=== PATIENT | male | born 1935 | race Caucasian/White ===

== ENCOUNTER → 2017-03-30 | Outpatient (CLI) | payer MEDICARE ==
[~2017-03-30] MED LIST: ASPI81TA85 PO; DOCU100C PO; FISHCAP PO; GLYB5TAB5 PO; HCTZ/LOSARTAN PO; METF850T PO; METO50TA2 PO; MULTTAB4 PO; OXYB5SYP PO; OXYC-208 PO; SIMVPOW2 PO; TERA1CA PO; tylenol
--- NOTE | 2017-03-30 12:52 | REP ---
Clinical: Renal failure. Technique: Real time blair scale ultrasound examination using curved array transducer. Findings: The right kidney is echogenic, atrophic, and demonstrates multiple small cysts along with 3.5 x 2.4 x 2.2 cm complex upper pole cyst and no evidence for hydronephrosis. Right kidney measures 8.5 x 3.7 x 3.4 cm. The left kidney is normal in contour, size, and echogenicity with increased renal sinus fat and few cysts measuring up to 1.6 x 1.5 x 1.4 cm suggesting element of age-related degenerative change left kidney measures 13.5 x 5.8 x 6.7 cm without hydronephrosis. Bladder is under distended and there appears to be a 12 x 12 x 7 mm echogenic soft tissue focus in the dependent portion which is otherwise nonspecific and mass versus sludge cannot be excluded. Impression: 1. Atrophic appearance to the right kidney with evidence for bilateral age-related changes including scattered cysts. No evidence for hydronephrosis. 2. Small echogenic soft tissue focus in the dependent portion the bladder. Differential includes mass and sludge/debris. Signed by Dayday Urbina MD 03/30/2017 12:43 P
== END ==
LOC: M RAD 10:44
PROVIDERS: ATTEND Family Medicine
DX: N19 Unspecified kidney failure (principal)

== ENCOUNTER → 2017-04-12 | Outpatient (REF) | payer MEDICARE ==
[2017-04-12 13:58] LABS: ALT/SGPT 12 U/L (12-78); AST/SGOT 5 U/L (15-37)
== END ==
LOC: M LAB REF 13:11
PROVIDERS: ATTEND Internal Medicine Nephrology
DX: N17.9 Acute kidney failure, unspecified (principal); I12.9 Hypertensive chronic kidney disease with stage 1 through stage 4 chronic kidney disease, or unspecified chronic kidney disease; N18.4 Chronic kidney disease, stage 4 (severe)

== ENCOUNTER → 2017-04-21 | Outpatient (REF) | payer MEDICARE | LOC: M LAB REF 16:42 | PROVIDERS: ATTEND Internal Medicine Nephrology | DX: N17.9 Acute kidney failure, unspecified (principal); Z79.84 Long term (current) use of oral hypoglycemic drugs ==

== ENCOUNTER → 2017-05-05 | Outpatient (CLI) | payer MEDICARE ==
[2017-05-05 13:10] LABS: BASO % 0.6 % (0.0-1.0); EOS # 0.2 10^3/uL (0.0-0.50); EOS % 3.9 % (0.0-3.0); IMMATURE GRANULOCYTE % 0.4 % (0-0); LYMPH # 0.9 10^3/uL (1.5-4.5); LYMPH % 16.1 % (24.0-44.0); MEAN CORPUSCULAR HEMOGLOBIN 31.4 pg (27.0-33.0); MEAN CORPUSCULAR HGB CONC 32.1 g/dl (32.0-36.5); MEAN CORPUSCULAR VOLUME 97.7 fl (80.0-96.0); MONO # 0.9 10^3/uL (0.0-0.8); MONO % 16.1 % (0.0-5.0); NEUTROPHILS # 3.4 10^3/uL (1.8-7.7); NEUTROPHILS % 62.9 % (36.0-66.0); PLATELET COUNT, AUTOMATED 174 10^3/uL (150-450); WHITE BLOOD COUNT 5.3 10^3/uL (4.0-10.0)
[2017-05-05 14:57] LABS: ALBUMIN 3.7 GM/DL (3.2-5.2); CALCIUM LEVEL 9.4 MG/DL (8.8-10.2); CREATININE FOR GFR 4.31 MG/DL (0.70-1.30); GLOMERULAR FILTRATION RATE 14.1 (>35); PHOSPHORUS LEVEL 5.7 MG/DL (2.5-4.9)
== END ==
LOC: M SMT 09:10
PROVIDERS: ATTEND Internal Medicine Nephrology
DX: N17.9 Acute kidney failure, unspecified (principal); N18.4 Chronic kidney disease, stage 4 (severe); I12.9 Hypertensive chronic kidney disease with stage 1 through stage 4 chronic kidney disease, or unspecified chronic kidney disease

== ENCOUNTER → 2017-06-06 | Outpatient (REF) | payer MEDICARE | LOC: M SMT 13:11 | PROVIDERS: ATTEND Nurse Practitioner Family | DX: N32.9 Bladder disorder, unspecified (principal); Z79.899 Other long term (current) drug therapy ==

== ENCOUNTER → 2017-06-07 | Outpatient (CLI) | payer MEDICARE | LOC: M RAD 09:48 | PROVIDERS: ATTEND Nurse Practitioner Family | DX: N28.1 Cyst of kidney, acquired (principal) ==

== ENCOUNTER → 2017-06-27 | Outpatient (REF) | payer MEDICARE ==
[~2017-06-27] MED LIST changes: +ASPI1TAB PO; +FERR325T3 PO; +FINA5TAB2 PO; +GLIP2.5T6 PO; +HYDR12CA PO; +OCUVTAB PO; +TERA5CA PO
[2017-06-27 18:00] LABS: PERCENT SATURATION 23.7 % (19.7-50.0)
== END ==
LOC: M LAB REF 17:27
PROVIDERS: ATTEND Internal Medicine Nephrology
DX: D64.9 Anemia, unspecified (principal)

== ENCOUNTER → 2017-06-30 | Outpatient (CLI) | payer MEDICARE ==
--- NOTE | 2017-07-01 21:07 | ECGEPIP ---
Stationary ECG Study [facility] Test Date: 2017-06-30 Pat Name: MARIA ALEJANDRA FITZPATRICK Department: Room: - Gender: M Data Administrator: [facility] : 1935 Requested By: ALEJANDRA Ashley Order Number: [id number] Reading MD: Tolu Khan Measurements Intervals [place] Rate: 79 P: 45 AK: 240 QRS: 7 QRSD: 168 T: 14 QT: 425 QTc: 487 Interpretive Statements SINUS RHYTHM WITH FIRST DEGREE AV BLOCK WITH OCCASIONAL VENTRICULAR PREMATURE COMPLEXES RIGHT BUNDLE BRANCH BLOCK Decreased heart rate, first-degree AV block and PVCs new compared with 11/01/2012 at 1527. Electronically Signed On 07-01-2017 21:07:38 EST by Tolu Khan
== END ==
LOC: M EKG 10:29
PROVIDERS: ATTEND Urology
DX: Z01.818 Encounter for other preprocedural examination (principal); D49.4 Neoplasm of unspecified behavior of bladder; I44.0 Atrioventricular block, first degree

== ENCOUNTER → 2017-07-04 | Outpatient (REF) | payer MEDICARE | LOC: M SMT 14:18 | PROVIDERS: ATTEND Urology | DX: N39.0 Urinary tract infection, site not specified (principal) ==

== ENCOUNTER 2017-07-07 06:58 | Day surgery (SDC) | payer MEDICARE ==
[~2017-07-07] VITALS: Ht 177.8 cm; Wt 95.2 kg
[2017-07-07] MEDS ORDERED: ceFAZolin 2 GM/D5W 50 ML IV BAG (J0690 PER 500MG) As Ordered ONE (07:32)
[2017-07-07] MEDS ORDERED: CONRAY-60 60% 50ML VIAL (Q9961) As Ordered ONE (08:39)
[2017-07-07] MEDS ORDERED: ONDANSETRON 4MG/2ML VIAL (J2405) As Ordered ONE (08:46)
[2017-07-07] MEDS ORDERED: LIDOCAINE 2% INJ 100 MG/5 ML SDV (FOR ANES.) As Ordered ONE (08:46)
[2017-07-07] MEDS ORDERED: fentaNYL 100 MCG/2 ML INJECTION (J3010) As Ordered ONE (08:46)
[2017-07-07] MEDS ORDERED: METOCLOPRAMIDE INJ 10MG/2ML VIAL (J2765) As Ordered ONE (08:46)
[2017-07-07] MEDS ORDERED: PROPOFOL 200 MG/20 ML VIAL As Ordered ONE (08:46)
[2017-07-07] MEDS ORDERED: ROCURONIUM BROMIDE 50 MG/5 ML VIAL As Ordered ONE (09:13)
[2017-07-07] MEDS ORDERED: ETOMIDATE INJ 20MG/10ML VIAL As Ordered ONE (09:13)
[2017-07-07] MEDS ORDERED: SUGAMMADEX SODIUM 500 MG/5 ML VIAL (BRIDION) As Ordered ONE (09:37)
--- NOTE | 2017-07-07 10:02 | REP ---
Retrograde pyelogram: Four views. History: Stent placement. 7 seconds of fluoroscopy time is reported. Findings: A sequence of four last image hold fluoroscopic spot radiographs of the abdomen document ureteral cannulation and contrast injection and double pigtail ureteral stent placement. No laterality markers are seen. Signed by Timo Justice MD 07/07/2017 01:35 P
[2017-07-07] MEDS ORDERED: MORPHINE 10 MG/ML 1ML VIAL IV PRN (10:15)
[2017-07-07] MEDS ORDERED: ACETAMINOPHEN TAB 650MG DOSE (2X325MG) PO PRN (10:15)
[2017-07-07] MEDS ORDERED: fentaNYL 100 MCG/2 ML INJECTION (J3010) IV PRN (10:15)
[2017-07-07] MEDS ORDERED: ONDANSETRON 4MG/2ML VIAL (J2405) IV PRN (10:15)
[2017-07-07] MEDS ORDERED: LR 1,000 ML IV SCH (10:15)
[2017-07-07 13:15] VITALS: BP 128/79
[2017-07-07 13:45] VITALS: BP 154/74
[2017-07-07 14:15] VITALS: BP 136/82
[2017-07-07 15:15] VITALS: BP 124/74
[2017-07-07 16:15] VITALS: BP 142/72
[2017-07-07] MEDS: TERAZOSIN 5 MG CAP PO SCH (16:35)
[2017-07-07] MEDS: hydroCHLOROthiazide 12.5 MG CAPSULE PO SCH (16:35)
[2017-07-07] MEDS: FINASTERIDE 5 MG TAB PO SCH (16:35)
[2017-07-07] MEDS: METOPROLOL TART 25 MG TABLET PO SCH (16:35)
[2017-07-07] MEDS: FERROUS SULFATE 325MG TAB PO SCH (16:36)
[2017-07-07] MEDS: glipiZIDE *2.5MG* 1/2 TABLET PO SCH (16:36)
[2017-07-07] MEDS: ASPIRIN 81 MG ENTERIC TAB PO SCH (16:36)
[2017-07-07 22:00] VITALS: BP 97/53
[2017-07-08 08:47] VITALS: BP 126/79
[2017-07-08] MEDS: TERAZOSIN 5 MG CAP PO SCH (08:48)
[2017-07-08 08:49] VITALS: BP 126/79
[2017-07-08] MEDS: ASPIRIN 81 MG ENTERIC TAB PO SCH (08:49)
[2017-07-08] MEDS: glipiZIDE *2.5MG* 1/2 TABLET PO SCH ×2 (08:49→08:51)
[2017-07-08] MEDS: FERROUS SULFATE 325MG TAB PO SCH (08:49)
[2017-07-08] MEDS: hydroCHLOROthiazide 12.5 MG CAPSULE PO SCH (08:49)
[2017-07-08] MEDS: FINASTERIDE 5 MG TAB PO SCH (08:49)
[2017-07-08] MEDS: METOPROLOL TART 25 MG TABLET PO SCH (08:49)
[2017-07-08 10:00] VITALS: BP 95/66
--- NOTE | 2017-07-08 10:44 | IPNPDOC ---
Assessment/Plan Date Seen The patient was seen on 07/08/17. Problems (1) Primary bladder transitional cell carcinoma Status: Acute Response to Treatment: Stable Discussed With: Nurse, Patient Plan/VTE VTE Prophylaxis Ordered?: No Plan d/ c home with leg bag Anticipated Discharge: Home Subjective Review oF Systems Chief Complaint The patient is a 82-year-old male admitted with a reason for visit of Bladder Tumor. Events since Last Encounter Admitted overnight after TURBT and stent due to decreased PO2 saturation. Offers no complaints. No difficulties No SOB P02 96%. No CP. Feels well. Minimal discomfort General: Denies: ROS Unobtainable, Chills, Night Sweats, Fatigue, Malaise, Normal Appetite, Other Symptoms Constitutional: Denies: Fever, Chills, Sweats, Weakness, Malaise, Other Eyes: Denies: Pain, Vision change, Conjunctivae inflammation, Eyelid inflammation, Redness, Other ENT: Denies: Head Aches, Ear Pain, Dysphagia, Sinus Congestion, Post Nasal Drip , Sore Throat, Epistaxis, Other Symptoms Skin: Denies: Rash, Lesions, Jaundice, Bruising, Itching, Dry, Breakdown, Nail Changes, Other Pulmonary: Denies: Dyspnea, Cough, Pleuritic Chest Pain, Other Symptoms Cardiovascular: Denies Chest Pain, Denies Palpitations, Denies Orthopnea, Denies Paroxysmal Noc. Dyspnea, Denies Edema, Denies Lt Headedness, Denies Other Symptoms Gastrointestinal: Denies: Nausea, Vomiting, Abdominal Pain, Diarrhea, Constipation, Melena, Hematochezia, Other Symptoms Genitourinary: Reports: Other Symptoms (slight discomfort at tip of penis. No flank pain) Hematologic: Denies: Bruising, Bleeding Excessively, Petecchia, Purpura, Enlarged Lymph Nodes, Other Hematologic Endocrine: Denies: Polydipsia, Polyphagia, Polyuria, Heat Intolerance, Cold Intolerance, Other Endocrine Sx Neurological: Denies: Weakness, Numbness, Incoordination, Change in Speech, Confusion, Seizures, Other Symptoms Objective Physical Examination General Exam: Alert, No Acute Distress ABDOMEN EXAM: Normal bowel sounds, Soft, No: Tenderness, Hepatospenomegaly Male Exam: Normal Genital Exam (catheter in place; blood tinged; no clots; no paraphimosis; testes non tender) Neuro Exam: Normal Gait, Normal Speech, Cranial Nerves 3-12 NL, Reflexes 2+ Vital Signs/I&O Vital Signs Date Time Temp Pulse Resp B/P (MAP) Pulse Ox O2 Delivery O2 Flow Rate FiO2 07/08/17 09:00 Room Air 07/08/17 08:49 89 126/79 07/08/17 08:47 91 07/07/17 22:00 97.9 17 2.0 I&O- Last 24 Hours up to 6 AM 07/08/17 06:00 Intake Total 750 ml Output Total 925 ml Balance -175 ml MINDY APONTE MD Jul 08, 2017 10:44
--- NOTE | 2017-07-11 14:48 | RO ---
DATE OF PROCEDURE: 07/07/2017 PREPROCEDURE DIAGNOSIS: Bladder tumors. POSTPROCEDURE DIAGNOSIS: Bladder tumors. OPERATIVE PROCEDURE: Cystoscopy, transurethral resection of bladder tumors (between 2-5 cm), left retrograde pyelogram with intraoperative interpretation of images, left ureteral stent placement. SURGEON: Kee Sterling MD TRAVEL SERVICES PROFESSIONAL: None. ANESTHESIA: General. OPERATIVE INDICATIONS: This is an 82-year-old male who was found to have several bladder tumors overlying his left ureteral orifice. He was brought to the operating room today for treatment. DESCRIPTION OF PROCEDURE: The patient was brought to the operating room, and general anesthesia was induced. Prophylactic antibiotics were infused. He was then placed in dorsal lithotomy position, prepped and draped in usual sterile fashion. A rigid cystoscope was then inserted into the urethral meatus and advanced to the bladder. The bladder was then thoroughly examined. There were no abnormalities seen other than papillary bladder tumors overlying the left ureteral orifice. They were approximately about 3-4 cm in size. At this point, I utilized a resectoscope to resect all visible tumors overlying this area. I then cauterized the area of resection with the coagulation current to make sure there was good hemostasis. Since I did have to resect over the ureteral orifice, I advanced a wire to the left collecting system. I then advanced an open-ended ureteral catheter over the wire in the left collecting system. A retrograde pyelogram was performed. It was negative for extravasation or hydronephrosis. I then advanced a 6-Lao x 22-32 cm JJ ureteral stent up the left collecting system over the wire. The wire was then removed, and there were adequate curls of the stent in the left renal pelvis and the bladder. At this point, I then inserted an 18-Lao Pedro catheter into the bladder and the balloon filled with 10 mL of sterile water. Fluid drained clear at the end of the procedure. The catheter was then connected to gravity drainage, and this marked the conclusion of the procedure. The patient was then taken out of the dorsal lithotomy position, awakened from anesthesia and transported to the recovery room in stable condition. ESTIMATED BLOOD LOSS: Minimal. COMPLICATIONS: None. SPECIMENS: Bladder tumors. PLAN: The patient will followup in the clinic in approximately 1 week for catheter removal. We will discuss pathology results as well. The stent will be left in place for approximately 3-4 weeks. [facility] MED[facility] CENTERMontserrat
== END 2017-07-08 11:55 | disposition home or self-care (01) ==
LOC: M SDC 06:58 → M MSPAV 13:19 → M SDC 07-08 11:55
PROVIDERS: ATTEND Urology
DX: C67.9 Malignant neoplasm of bladder, unspecified (principal); E11.9 Type 2 diabetes mellitus without complications; I25.10 Atherosclerotic heart disease of native coronary artery without angina pectoris; I25.2 Old myocardial infarction; I13.0 Hypertensive heart and chronic kidney disease with heart failure and stage 1 through stage 4 chronic kidney disease, or unspecified chronic kidney disease; D64.9 Anemia, unspecified; R29.898 Other symptoms and signs involving the musculoskeletal system; F41.9 Anxiety disorder, unspecified; N18.3 Chronic kidney disease, stage 3 (moderate); N40.0 Benign prostatic hyperplasia without lower urinary tract symptoms; Z79.899 Other long term (current) drug therapy; Z79.82 Long term (current) use of aspirin; Z85.828 Personal history of other malignant neoplasm of skin; Z87.81 Personal history of (healed) traumatic fracture; Z87.891 Personal history of nicotine dependence; Z96.1 Presence of intraocular lens
CPT/HCPCS: 52235; 52332; 74420; 88307; J0690; J2405; J2765; J3010; Q9961

== ENCOUNTER → 2017-09-04 | Outpatient (REF) | payer MEDICARE | LOC: M LAB REF 17:20 | DX: N18.9 Chronic kidney disease, unspecified (principal); D63.1 Anemia in chronic kidney disease | CPT/HCPCS: 82270 ==

== ENCOUNTER → 2017-11-21 | Outpatient (REF) | payer MEDICARE | LOC: M SMT 17:27 | DX: C67.9 Malignant neoplasm of bladder, unspecified (principal) | CPT/HCPCS: 88108 ==

== ENCOUNTER → 2018-02-21 | Outpatient (REF) | payer MEDICARE | LOC: M SMT 17:05 | DX: C67.9 Malignant neoplasm of bladder, unspecified (principal) | CPT/HCPCS: 88108 ==

== ENCOUNTER → 2018-06-19 | Outpatient (REF) | payer MEDICARE | LOC: M SMT 17:29 | DX: C67.9 Malignant neoplasm of bladder, unspecified (principal) | CPT/HCPCS: 88108 ==

== ENCOUNTER → 2019-11-11 | Outpatient (CLI) | payer MEDICARE ==
[~2019-11-11] MED LIST changes: -ASPI1TAB PO; +ASPI81TA26 PO; -TERA1CA PO; +TERA1CAP46 PO; -TERA5CA PO; +TERA5CAP3 PO
--- NOTE | 2019-11-12 01:27 | REP ---
REASON FOR EXAM: Cough. COMPARISON EXAM: 08/15/2014, the latest prior. The lung yeung are hypoexpanded, status quo. The heart is not enlarged. Chronic bibasilar changes are noted, status quo. Note is again made of previous median sternotomy. No acute patchy parenchymal opacities or pleural effusions have developed. There is no significant change in appearance of the osseous structures. IMPRESSION: Stable appearing chronic changes without evidence of acute cardiopulmonary disease. Electronically Signed by Adin Angeles DO 11/12/2019 07:57 A
== END ==
LOC: M WUC 15:54
PROVIDERS: ATTEND Internal Medicine
DX: R05 Cough (principal)

== ENCOUNTER → 2019-11-21 | Outpatient (REF) | payer MEDICARE ==
[~2019-11-21] MED LIST changes: +FISH1000 PO; +METO1TAB32 PO; +PRAV80TA2 PO; +VITMTA PO
== END ==
LOC: M LAB REF 07:40
PROVIDERS: ATTEND Dermatology
DX: C44.320 Squamous cell carcinoma of skin of unspecified parts of face (principal); D04.30 Carcinoma in situ of skin of unspecified part of face; L57.0 Actinic keratosis

== ENCOUNTER 2019-12-12 14:57 | Inpatient (IN) | payer MEDICARE ==
[~2019-12-12] VITALS: Ht 177.8 cm; Wt 105.6 kg
[~2019-12-12 14:57] MED LIST changes: -FISH1000 PO; -METO1TAB32 PO; -PRAV80TA2 PO; -VITMTA PO
[2019-12-12] MEDS ORDERED: PRAV80TA2 PO (15:27)
[2019-12-12 15:30] LABS: BASO % 0.7 % (0.0-1.0); EOS # 0.1 10^3/uL (0.0-0.5); HEMATOCRIT 25.6 % (42.0-52.0); HEMOGLOBIN 7.8 g/dl (13.5-17.5); LYMPH # 0.9 10^3/uL (1.5-5.0); LYMPH % 14.2 % (24.0-44.0); MEAN CORPUSCULAR HEMOGLOBIN 32.2 pg (27.0-33.0); MEAN CORPUSCULAR HGB CONC 30.5 g/dl (32.0-36.5); MEAN CORPUSCULAR VOLUME 105.8 fl (80.0-96.0); MONO # 0.6 10^3/uL (0.0-0.8); MONO % 10.1 % (0.0-5.0); NEUTROPHILS # 4.3 10^3/uL (1.5-8.5); NEUTROPHILS % 69.3 % (36.0-66.0); PLATELET COUNT, AUTOMATED 116 10^3/uL (150-450); RED BLOOD COUNT 2.42 10^6/uL (4.30-6.10); WHITE BLOOD COUNT 6.1 10^3/uL (4.0-10.0)
[2019-12-12 15:43] LABS: PARTIAL THROMBOPLASTIN TIME 28.3 SECONDS (25.0-38.4)
[2019-12-12 15:51] LABS: ALBUMIN 3.3 GM/DL (3.2-5.2); ALT/SGPT 35 U/L (12-78); BILIRUBIN,DIRECT < 0.1 MG/DL (0.0-0.2); BILIRUBIN,TOTAL 0.2 MG/DL (0.2-1.0); BLOOD UREA NITROGEN 71 MG/DL (7-18); CALCIUM LEVEL 8.3 MG/DL (8.8-10.2); CARBON DIOXIDE LEVEL 29 MEQ/L (21-32); CHLORIDE LEVEL 108 MEQ/L (98-107); CREATININE FOR GFR 3.49 MG/DL (0.70-1.30); GLOMERULAR FILTRATION RATE 17.9 (>35); GLUCOSE, FASTING 194 MG/DL (70-100); LIPASE 120 U/L (73-393); POTASSIUM SERUM 4.5 MEQ/L (3.5-5.1); SODIUM LEVEL 142 MEQ/L (136-145); TOTAL PROTEIN 6.4 GM/DL (6.4-8.2)
[2019-12-12 16:30] LABS: IRON (FE) 78 UG/DL (65-175); PERCENT SATURATION 26.8 % (19.7-50.0); TOTAL IRON BINDING CAPACITY 291 UG/DL (250-450)
[2019-12-12 16:32] LABS: INR 1.11
--- NOTE | 2019-12-12 17:21 | REP ---
REASON: Dyspnea. COMPARISON: Multiple, the latest 11/11/2019. The lung yeung are hypoexpanded. The technique utilized in obtaining the radiograph has magnified the cardiac silhouette and accentuated the interstitial markings. The heart is enlarged, magnified by technique. Once again, air within the intestinal tract abuts the undersurface of both right and left hemidiaphragm, so called Chilaiditi's on the right and gastric air bubble on the left. There are no acute patchy parenchymal opacities or pleural effusions. There is no change in the osseous structures. Note is again made of previous median sternotomy. IMPRESSION: Once again, intestinal gas elevates each hemidiaphragm causing low lung volumes. There is no evidence of acute cardiopulmonary disease or significant change when reviewed and compared to multiple prior exams. Electronically Signed by Adin Angeles DO 12/13/2019 09:51 A
[2019-12-12] MEDS: NS 1,000 ML IV SCH ×2 (17:37→21:12)
[2019-12-12 17:47] VITALS: BP 175/81
[2019-12-12] MEDS ORDERED: METO1TAB32 PO (17:52)
[2019-12-12] MEDS ORDERED: FISH1000 PO (17:52)
[2019-12-12] MEDS ORDERED: VITMTA PO (17:52)
--- NOTE | 2019-12-12 17:52 | HPEPDOC ---
[facility] Medical History & Physical Date of Admission December 12, 2019 Date of Service: December 12, 2019 Primary Care Physician: A History and Physical CHIEF COMPLAINT: shortness of breath HISTORY OF PRESENT ILLNESS: 84 yo male presents for several weak history of worsening shortness of breath, and dyspnea on exertion. Also complains of chronic leg and shoulder pain. Does not recall any recent colonoscopies. States he has been taking ibuprofen 3x daily for last 2 weeks for pain control. Denies chest pain, abdominal pain, N/V/D, headaches, changes in vision. Denies black tarry stools, or BRBPR. Extensive PMHx as indicated. 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 REVIEW OF SYSTEMS: Negative except as per HPI HOME MEDICATIONS: Please see below. PHYSICAL EXAMINATION: VITAL SIGNS: See below General: NAD, lying comfortably in bed HEENT: NC/AT, EOMI Lungs: CTA B/L Heart: +S1S2, RRR Abd: soft, NT, +BS Ext: no edema LABORATORY DATA: See below. MICROBIOLOGY: Please see below. ASSESSMENT: 84 yo male for two week history of worsening SOB/SWEENEY, admits to NSAID use over the last two weeks, found to be anemic with heme positive stool. PMHx includes DMII, HTN, OAB, HLD, CKDIII, BPH, chronic anemia and bladder tumor. Does not recall any recent colonoscopies. 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 #BLADDER TUMOR - follow with dr mandujano #DVT prophylaxis - mechanical Vital Signs Vital Signs Date Time Temp Pulse Resp B/P (MAP) Pulse Ox O2 Delivery O2 Flow Rate FiO2 12/12/19 14:58 97.8 92 20 114/59 (77) 88 Room Air Laboratory Data Labs 24H Laboratory Tests 2 12/12/19 15:14: Immature Granulocyte % (Auto) 3.7H, Neutrophils (%) (Auto) 69.3H, Lymphocytes (%) (Auto) 14.2L, Monocytes (%) (Auto) 10.1H, Eosinophils (%) (Auto) 2.0, Basophils (%) (Auto) 0.7, Neutrophils # (Auto) 4.3, Lymphocytes # (Auto) 0.9L, Monocytes # (Auto) 0.6, Eosinophils # (Auto) 0.1, Basophils # (Auto) 0.0, Nucleated Red Blood Cells % (auto) 0.0, Prothrombin Time 14.0, Prothromb Time I nternational Ratio 1.11, Activated Partial Thromboplast Time 28.3, Anion Gap 5L, Glomerular Filtration Rate 17.9L, Calcium Level 8.3L, Iron Level 78, Total Iron Binding Capacity 291, Transferrin % Saturation 26.8, Total Bilirubin 0.2, Direct Bilirubin < 0.1, Aspartate Amino Transf (AST/SGOT) 24, Alanine Aminotransferase (ALT/SGPT) 35, Alkaline Phosphatase 77, Total Protein 6.4, Albumin 3.3, Albumi n/Globulin Ratio 1.1, Lipase 120 CBC/BMP Laboratory Tests 12/12/19 15:14 Allergies Coded Allergies: No Known Allergies (Verified , 05/08/03) A-FIB/CHADSVASC A-FIB History Current/History of A-Fib/PAF?: No MYLES MARISCAL MD December 12, 2019 17:52
[2019-12-12 18:02] VITALS: BP 174/81
[2019-12-12 19:02] VITALS: BP 186/81
[2019-12-12 19:45] VITALS: BP 196/83
[2019-12-12 20:40] VITALS: BP 145/72
[2019-12-12] MEDS: TERAZOSIN 5 MG CAP PO SCH (21:13)
--- NOTE | 2019-12-12 21:13 | ECGEPIP ---
[facility] - ED Test Date: 2019-12-12 Pat Name: MARIA ALEJANDRA FITZPATRICK Department: Room: - Gender: Male Spring Tester: LEE ANN : 1935 Requested By: CARLOS VALDES Order Number: [id number] Reading MD: Shaquille Watkins Measurements Intervals [place] Rate: 74 P: 41 CO: 244 QRS: 7 QRSD: 161 T: 3 QT: 423 QTc: 470 Interpretive Statements SINUS RHYTHM WITH FIRST DEGREE AV BLOCK RIGHT BUNDLE BRANCH BLOCK SIMILAR TO 06/30/17 Electronically Signed on 12-12-2019 21:13:51 EDT by Shaquille Watkins
[2019-12-12] MEDS: METOPROLOL SUCC *XL* 25MG TAB (TopROL *XL*) PO SCH (21:14)
[2019-12-12] MEDS: hydroCHLOROthiazide 12.5 MG CAPSULE PO SCH (21:14)
[2019-12-12] MEDS: ACETAMINOPHEN TAB 650MG DOSE (2X325MG) PO PRN (23:19)
[2019-12-13] VITALS: BP 132/74
[2019-12-13 04:00] VITALS: BP 125/60
[2019-12-13 05:02] LABS: HEMOGLOBIN 7.9 g/dl (13.5-17.5); MEAN CORPUSCULAR HEMOGLOBIN 31.2 pg (27.0-33.0); MEAN CORPUSCULAR HGB CONC 30.4 g/dl (32.0-36.5); MEAN CORPUSCULAR VOLUME 102.8 fl (80.0-96.0); RED BLOOD COUNT 2.53 10^6/uL (4.30-6.10); WHITE BLOOD COUNT 5.3 10^3/uL (4.0-10.0)
[2019-12-13] MEDS: NS 1,000 ML IV SCH ×2 (05:11→13:58)
[2019-12-13 05:32] LABS: PLATELET COUNT, AUTOMATED 97 10^3/uL (150-450)
[2019-12-13 05:33] LABS: BLOOD UREA NITROGEN 67 MG/DL (7-18); CARBON DIOXIDE LEVEL 28 MEQ/L (21-32); CHLORIDE LEVEL 112 MEQ/L (98-107); CREATININE FOR GFR 2.95 MG/DL (0.70-1.30); GLOMERULAR FILTRATION RATE 21.7 (>35); GLUCOSE, FASTING 114 MG/DL (70-100); POTASSIUM SERUM 4.8 MEQ/L (3.5-5.1); SODIUM LEVEL 142 MEQ/L (136-145)
[2019-12-13 07:54] VITALS: BP 142/62
[2019-12-13] MEDS: PANTOPRAZOLE 40MG VIAL (C9113 PER 1) IV SCH ×2 (08:30→21:27)
[2019-12-13] MEDS: FINASTERIDE 5 MG TAB PO SCH (08:31)
[2019-12-13] MEDS: PRAVASTATIN 20 MG TAB PO SCH (08:31)
[2019-12-13] MEDS: MULTIVITAMINS/MINERALS THERAP 1 TAB PO SCH (08:31)
[2019-12-13 08:42] LABS: LDH LACTATE DEHYDROGENASE 447 U/L (87-241)
[2019-12-13] MEDS ORDERED: FERROUS SULFATE 325MG TAB PO SCH (09:00)
--- NOTE | 2019-12-13 11:31 | IPNPDOC ---
Text Note Date of Service The patient was seen on 12/13/19. NOTE Subjective: Patient seen and examined at bedside. No acute overnight events reported. Patient has no new medical complaints. Objecitive: VITAL SIGNS: See below General: NAD, lying comfortably in bed HEENT: NC/AT, EOMI, hard of hearing Lungs: CTA B/L Heart: +S1S2, RRR Abd: soft, NT, +BS Ext: no edema ASSESSMENT/PLAN: 84 yo male for two week history of worsening SOB/SWEENEY, admits to NSAID use over the last two weeks, found to be anemic with heme positive stool. 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
[2019-12-13 11:47] LABS: VITAMIN B12 LEVEL 749 PG/ML (247-911)
[2019-12-13 11:48] LABS: FOLATE > 24.0 NG/ML (>5.4)
[2019-12-13 13:51] LABS: HEMATOCRIT 26.7 % (42.0-52.0); HEMOGLOBIN 8.1 g/dl (13.5-17.5)
[2019-12-13 16:00] VITALS: BP 142/68
[2019-12-13] MEDS ORDERED: MOM 30ML SUSPENSION UDC PO ONE (18:45)
[2019-12-13 19:04] LABS: HEMOGLOBIN 7.8 g/dl (13.5-17.5); MEAN CORPUSCULAR HEMOGLOBIN 31.2 pg (27.0-33.0)
[2019-12-13 19:07] LABS: PLATELET COUNT, AUTOMATED 94 10^3/uL (150-450)
[2019-12-13 20:00] VITALS: BP 137/61
[2019-12-13] MEDS: hydroCHLOROthiazide 12.5 MG CAPSULE PO SCH (21:27)
[2019-12-13] MEDS: TERAZOSIN 5 MG CAP PO SCH (21:27)
[2019-12-13] MEDS: METOPROLOL SUCC *XL* 25MG TAB (TopROL *XL*) PO SCH (21:27)
[2019-12-14] VITALS: BP 135/63
[2019-12-14 00:23] LABS: HEMATOCRIT 24.4 % (42.0-52.0); HEMOGLOBIN 7.5 g/dl (13.5-17.5); MEAN CORPUSCULAR HEMOGLOBIN 31.4 pg (27.0-33.0); MEAN CORPUSCULAR HGB CONC 30.7 g/dl (32.0-36.5); MEAN CORPUSCULAR VOLUME 102.1 fl (80.0-96.0); RED BLOOD COUNT 2.39 10^6/uL (4.30-6.10); WHITE BLOOD COUNT 4.9 10^3/uL (4.0-10.0)
[2019-12-14 00:38] LABS: PLATELET COUNT, AUTOMATED 87 10^3/uL (150-450)
[2019-12-14] MEDS: NS 1,000 ML IV SCH (03:36)
[2019-12-14 04:00] VITALS: BP 141/65
[2019-12-14 05:25] LABS: CALCIUM LEVEL 7.7 MG/DL (8.8-10.2); CREATININE FOR GFR 2.61 MG/DL (0.70-1.30); POTASSIUM SERUM 5.6 MEQ/L (3.5-5.1)
[2019-12-14 06:32] LABS: HEMOGLOBIN 7.6 g/dl (13.5-17.5); MEAN CORPUSCULAR HEMOGLOBIN 31.4 pg (27.0-33.0); MEAN CORPUSCULAR HGB CONC 30.4 g/dl (32.0-36.5); MEAN CORPUSCULAR VOLUME 103.3 fl (80.0-96.0); RED BLOOD COUNT 2.42 10^6/uL (4.30-6.10); WHITE BLOOD COUNT 4.5 10^3/uL (4.0-10.0)
[2019-12-14 06:38] LABS: PLATELET COUNT, AUTOMATED 89 10^3/uL (150-450)
[2019-12-14 07:12] VITALS: BP 150/68
[2019-12-14] MEDS: D5W/0.45% SODIUM CHLORIDE 1,000 ML IV SCH ×2 (07:38→20:14)
[2019-12-14 07:44] LABS: ALBUMIN 2.8 GM/DL (3.2-5.2)
[2019-12-14] MEDS ORDERED: POLYETHYLENE GLYCOL (MIRALAX) 238GM BOTTLE PO ONE ×2 (08:00→18:00)
[2019-12-14] MEDS: PANTOPRAZOLE 40MG VIAL (C9113 PER 1) IV SCH ×2 (08:45→20:12)
[2019-12-14] MEDS: PRAVASTATIN 20 MG TAB PO SCH (08:45)
[2019-12-14] MEDS: MULTIVITAMINS/MINERALS THERAP 1 TAB PO SCH (08:45)
[2019-12-14] MEDS: FINASTERIDE 5 MG TAB PO SCH (08:45)
--- NOTE | 2019-12-14 08:57 | IPNPDOC ---
Text Note Date of Service The patient was seen on 12/14/19. NOTE Subjective: Patient seen and examined at bedside. No acute overnight events reported. Just returning from PT - reported to be short of breath with exertion. Patient has no new medical complaints. Unaware of any previous issues with thrombocytopenia. Denies any B symptoms. Objecitive: VITAL SIGNS: See below General: NAD, lying comfortably in bed HEENT: NC/AT, EOMI, hard of hearing Lungs: CTA B/L Heart: +S1S2, RRR Abd: soft, NT, +BS Ext: no edema ASSESSMENT/PLAN: 84 yo male for two week history of worsening SOB/SWEENEY, admits to NSAID use over the last two weeks for right shoulder pain, found to be anemic with heme positive stool. PMHx includes #GI Bleed - possible upper GI bleed - protonix IV BID - clear liquids - serial H/H - states he has never had a colonoscopy - gi c/s pending - plan for EGD/colonoscopy tomorrow #anemia - acute blood loss anemia complicated with chronic iron deficiency on oral supplementation #thrombocytopenia - will check ultrasound for splenomegaly, cirrhosis and portal hypertension - workup in progress - continue to monitor - consider transfusion if anemia worsens - etiology unknown - no B symptoms #DIABETES MELLITUS II - insulin sliding scale #HTN - HCTZ and toprol xl as per home meds - with hold parameters #OAB #HLD # APRIL/CKD III - creatinine improving # BPH - continue proscar and hytrin # DIABETIC NEUROPATHY #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
[2019-12-14 12:00] VITALS: BP 152/72
[2019-12-14 13:24] LABS: D-DIMER QUANT 3109.07 ng/ml (<500)
[2019-12-14 16:00] VITALS: BP 153/70
[2019-12-14 20:00] VITALS: BP 163/88
[2019-12-14] MEDS: METOPROLOL SUCC *XL* 25MG TAB (TopROL *XL*) PO SCH (20:13)
[2019-12-14] MEDS: TERAZOSIN 5 MG CAP PO SCH (20:13)
[2019-12-14] MEDS: hydroCHLOROthiazide 12.5 MG CAPSULE PO SCH (20:13)
[2019-12-14 21:08] LABS: HEMATOCRIT 25.3 % (42.0-52.0); HEMOGLOBIN 7.8 g/dl (13.5-17.5)
[2019-12-15] VITALS: BP 159/72
[2019-12-15 04:00] VITALS: BP 161/70
[2019-12-15 05:44] LABS: HEMATOCRIT 23.9 % (42.0-52.0); HEMOGLOBIN 7.2 g/dl (13.5-17.5); MEAN CORPUSCULAR HEMOGLOBIN 30.8 pg (27.0-33.0); MEAN CORPUSCULAR HGB CONC 30.1 g/dl (32.0-36.5); MEAN CORPUSCULAR VOLUME 102.1 fl (80.0-96.0); RED BLOOD COUNT 2.34 10^6/uL (4.30-6.10); WHITE BLOOD COUNT 5.7 10^3/uL (4.0-10.0)
[2019-12-15 05:46] LABS: PLATELET COUNT, AUTOMATED 89 10^3/uL (150-450)
[2019-12-15 06:09] LABS: CALCIUM LEVEL 7.8 MG/DL (8.8-10.2); CREATININE FOR GFR 2.31 MG/DL (0.70-1.30); GLOMERULAR FILTRATION RATE 28.8 (>35); POTASSIUM SERUM 5.2 MEQ/L (3.5-5.1)
[2019-12-15 07:22] VITALS: BP 157/72
[2019-12-15] MEDS: MULTIVITAMINS/MINERALS THERAP 1 TAB PO SCH (08:02)
[2019-12-15] MEDS: PRAVASTATIN 20 MG TAB PO SCH (08:02)
[2019-12-15] MEDS: FINASTERIDE 5 MG TAB PO SCH (08:02)
[2019-12-15] MEDS: PANTOPRAZOLE 40MG VIAL (C9113 PER 1) IV SCH ×2 (08:02→21:26)
--- NOTE | 2019-12-15 08:05 | IPNPDOC ---
Text Note Date of Service The patient was seen on 12/15/19. NOTE Subjective: Patient seen and examined at bedside. No acute overnight events reported. Still reports SWEENEY. Patient has no new medical complaints. Unaware of any previous issues with thrombocytopenia. Denies any B symptoms. Objecitive: VITAL SIGNS: See below General: NAD, lying comfortably in bed HEENT: NC/AT, EOMI, hard of hearing Lungs: CTA B/L Heart: +S1S2, RRR Abd: soft, NT, +BS Ext: no edema ASSESSMENT/PLAN: 84 yo male for two week history of worsening SOB/SWEENEY, admits to NSAID use over the last two weeks for right shoulder pain, found to be anemic with heme positive stool. PMHx includes anemia, DM, HTN, OAB, HLD, CKD, BPH and bladder tumor. #GI Bleed - protonix IV BID - clear liquids - serial H/H - states he has never had a colonoscopy - gi c/s pending - plan for EGD/colonoscopy today #anemia - acute blood loss anemia complicated with chronic iron deficiency on oral supplementation #thrombocytopenia - will check ultrasound with dopplers for splenomegaly, cirrhosis and portal hypertension - workup in progress - continue to monitor - consider transfusion if anemia worsens - etiology unknown - no B symptoms #chronic respiratory failure - uses supplemental oxygen at baseline 2L at night, and during as needed #DIABETES MELLITUS II - insulin sliding scale #HTN - HCTZ and toprol xl as per home meds - with hold parameters #OAB #HLD # APRIL/CKD III - creatinine improving # BPH - continue proscar and hytrin # DIABETIC NEUROPATHY #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 MD December 15, 2019 08:05
[2019-12-15] MEDS: D5W/0.45% SODIUM CHLORIDE 1,000 ML IV SCH (08:42)
[2019-12-15] MEDS ORDERED: PHENYLephrine HCL 500 MCG/5 ML (100MCG/ML) SYRINGE (J2370) As Ordered ONE ×2 (10:23→10:41)
[2019-12-15] MEDS ORDERED: LIDOCAINE 2% 100MG/5ML SDV (FOR ANES.) As Ordered ONE (10:41)
[2019-12-15] MEDS ORDERED: fentaNYL 100 MCG/2 ML INJECTION (J3010) As Ordered ONE (10:41)
[2019-12-15] MEDS ORDERED: propofoL 200 MG/20 ML VIAL As Ordered ONE ×2 (10:41→11:18)
[2019-12-15] MEDS ORDERED: ePHEDrine SULFATE 25 MG/5 ML(5MG/ML) SYRINGE As Ordered ONE (10:41)
[2019-12-15] MEDS ORDERED: GLUCAGON INJ 1MG VIAL As Ordered ONE (10:46)
--- NOTE | 2019-12-15 11:54 | ROOR ---
Patient Name: Kvng Enrique Procedure Date: 12/15/2019 9:43 AM Date of : 1935 Age: 84 Room: Main OR Gender: Male Note Status: Finalized Procedure: Colonoscopy Indications: Rectal bleeding, Evaluation of unexplained GI bleeding presenting with fecal occult blood Providers: Tolu SMALLS MD Referring MD: 2. Inpatient 2. Inpatient Requesting Provider: Medicines: Monitored Anesthesia Care Complications: No immediate complications. Procedure: Pre-Anesthesia Assessment: - The heart rate, respiratory rate, oxygen saturations, blood pressure, adequacy of pulmonary ventilation, and response to care were monitored throughout the procedure. The Colonoscope was introduced through the anus and advanced to 5 cm into the ileum. The colonoscopy was performed with difficulty due to excessive bleeding. Successful completion of the procedure was aided by lavage. The patient tolerated the procedure well. The quality of the bowel preparation was inadequate to detect polyps <5 mm., However was sufficient to assess for source of bleeding. Findings: The perianal and digital rectal examinations were normal. An ulcerated non-obstructing medium-sized mass was found in the mid transverse colon. The mass measured four cm in length. Oozing was present. This was biopsied with a cold forceps for histology. Area was successfully injected with 5 mL Estrellita ink for tattooing. Multiple diverticula were found in the sigmoid colon. Internal hemorrhoids were found during retroflexion. The hemorrhoids were medium-sized. 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 Biopsied. Injected with Tattoo.. - Redundant colon with difficult landmarks. - Diverticulosis in the sigmoid colon. - Internal hemorrhoids. - Blood and clots throughout colon. Preparation of the colon was inadequate to assess for small polyps, adequate to assess for bleeding source. Recommendation: - I suspect active oozing/bleeding due to freshly ulcerated/avulsed tumor with colon preparation and thrombocytopenia. Observe closely, transfuse as needed. - Refer to a surgeon at appointment to be scheduled. - Await pathology results. - Return patient to [facility] for ongoing care. - Clear liquid diet. Tolu Smalls MD Tolu SMALLS MD 12/15/2019 11:53:56 AM Electronically signed by Tolu SMALLS MD Number of Addenda: 0 Note Initiated On: 12/15/2019 9:43 AM Estimated Blood Loss: Estimated blood loss: none.
--- NOTE | 2019-12-15 12:00 | ROOR ---
Patient Name: Kvng Enrique Procedure Date: 12/15/2019 9:46 AM Date of : 1935 Age: 84 Room: Main OR Gender: Male Note Status: Finalized Procedure: Upper GI endoscopy Indications: Heme positive stool Providers: Tolu SMALLS MD Referring MD: 2. Inpatient 2. Inpatient Requesting Provider: Medicines: Monitored Anesthesia Care Complications: No immediate complications. Procedure: Pre-Anesthesia Assessment: - The heart rate, respiratory rate, oxygen saturations, blood pressure, adequacy of pulmonary ventilation, and response to care were monitored throughout the procedure. The Endoscope was introduced through the mouth, and advanced to the third part of duodenum. The upper GI endoscopy was accomplished without difficulty. The patient tolerated the procedure well. Findings: The esophagus was normal. The stomach was normal. The examined duodenum was normal. Impression: - Normal esophagus. - Normal stomach. - Normal examined duodenum. - No specimens collected. Recommendation: - Perform a colonoscopy today. Tolu Smalls MD Tolu SMALLS MD 12/15/2019 12:00:08 PM Electronically signed by Tolu SMALLS MD Number of Addenda: 0 Note Initiated On: 12/15/2019 9:46 AM Estimated Blood Loss: Estimated blood loss: none.
[2019-12-15 12:20] VITALS: BP 147/63
[2019-12-15] MEDS ORDERED: SLF 3 ML SYR IV PRN (12:30)
[2019-12-15] MEDS: SLF 3 ML SYR IV SCH ×2 (13:18→21:26)
[2019-12-15 16:00] VITALS: BP 129/59
--- NOTE | 2019-12-15 17:28 | REPVR ---
PROCEDURE INFORMATION: Exam: US Duplex Lower Extremity Veins, Bilateral Exam date and time: 12/15/2019 5:17 PM Age: 84 years old Clinical indication: Edema, localized; Lower extremity, bilateral; Additional info: Eval dvt TECHNIQUE: Imaging protocol: Real-time duplex ultrasound of the extremities with 2-D blair scale, color Doppler flow and spectral waveform analysis with image documentation. Complete exam focused on the bilateral lower extremity veins. COMPARISON: No relevant prior studies available. FINDINGS: Right deep veins: Unremarkable. The common femoral, femoral, proximal profunda femoral and popliteal veins are patent without thrombus. Normal Doppler waveforms. Normal compressibility and/or augmentation response. 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 Left deep veins: Unremarkable. The common femoral, femoral, proximal profunda femoral and popliteal veins are patent without thrombus. Normal Doppler waveforms. Normal compressibility and/or augmentation response. Left superficial veins: Saphenofemoral junction is patent without thrombus. Soft tissues: Unremarkable. IMPRESSION: No evidence of deep vein thrombosis. Electronically signed by: Francie Miller On 12/15/2019 17:28:00 PM
[2019-12-15 18:52] LABS: HEMATOCRIT 31.5 % (42.0-52.0); MEAN CORPUSCULAR HEMOGLOBIN 30.7 pg (27.0-33.0); MEAN CORPUSCULAR HGB CONC 31.7 g/dl (32.0-36.5); MEAN CORPUSCULAR VOLUME 96.6 fl (80.0-96.0); RED BLOOD COUNT 3.26 10^6/uL (4.30-6.10); WHITE BLOOD COUNT 7.5 10^3/uL (4.0-10.0)
[2019-12-15 18:54] LABS: PLATELET COUNT, AUTOMATED 85 10^3/uL (150-450)
[2019-12-15 20:00] VITALS: BP 153/73
--- NOTE | 2019-12-15 21:20 | REPVR ---
PROCEDURE INFORMATION: Exam: CT Abdomen And Pelvis Without Contrast Exam date and time: 12/15/2019 8:33 PM Age: 84 years old Clinical indication: Condition or disease; Intestinal condition; Mass/lesion; Additional info: Colon mass TECHNIQUE: Imaging protocol: Computed tomography of the abdomen and pelvis without contrast. Radiation optimization: All CT scans at this facility use at least one of these dose optimization techniques: automated exposure control; mA and/or kV adjustment per patient size (includes targeted exams where dose is matched to clinical indication); or iterative reconstruction. COMPARISON: CT ABD PELVIS W/O CONTRAST 06/07/2017 10:03 AM FINDINGS: Lungs: Motion artifact degrades image quality. Coarse linear opacities in the left lower lobe suggest discoid atelectasis or scar. Very small bilateral pleural effusions. Liver: Normal. No mass. Gallbladder and bile ducts: Gallstones present within the gallbladder. Pancreas: Calcification noted in the pancreatic head. Spleen: Normal. No splenomegaly. Adrenals: Normal. No mass. Kidneys and ureters: There are numerous rounded lesions present within both kidneys of varying density (some high and some low). A focal 4.4 cm rounded masslike appearing area present in the mid right kidney probably not significantly changed from 2017. No hydronephrosis in either kidney. Bilateral renal cortical atrophy. Stomach and bowel: Colonic interposition between the liver and anterior abdominal wall. Appendix: No evidence of appendicitis. Intraperitoneal space: Small amount of ascites noted in the pelvis. The colon is moderately distended with air perisplenic ascites. Vasculature: Unremarkable. No abdominal aortic aneurysm. Lymph nodes: Unremarkable. No enlarged lymph nodes. Bladder: Unremarkable as visualized. Reproductive: Unremarkable as visualized. Bones/joints: There has been a median sternotomy. There are several healed rib fractures in the right hemithorax. Vertebral compression fracture at L1 with 60% loss of height of the vertebral body unchanged from previous. 50% loss of height of the T8 vertebral body. Soft tissues: Trace amount of small left inguinal hernia containing fat with no signs of strangulation. Mild anasarca. IMPRESSION: 1. Bilateral renal cortical atrophy with bilateral renal masses. A focal 4 cm rounded area in the mid right kidney appears mass like but is probably not significantly changed from previous. MRI might be helpful for further characterization of the renal masses if it is clinically relevant. 2. Cholelithiasis. 3. Small amount of ascites in the pelvis. 4. Very small bilateral pleural effusions Electronically signed by: Francie Miller On 12/15/2019 21:20:39 PM
[2019-12-15] MEDS: hydroCHLOROthiazide 12.5 MG CAPSULE PO SCH (21:25)
[2019-12-15] MEDS: TERAZOSIN 5 MG CAP PO SCH (21:25)
[2019-12-15] MEDS: METOPROLOL SUCC *XL* 25MG TAB (TopROL *XL*) PO SCH (21:26)
[2019-12-16] VITALS: BP 141/68
[2019-12-16 04:00] VITALS: BP 142/69
[2019-12-16 04:29] LABS: HEMATOCRIT 30.3 % (42.0-52.0); HEMOGLOBIN 9.4 g/dl (13.5-17.5); MEAN CORPUSCULAR HEMOGLOBIN 30.1 pg (27.0-33.0); MEAN CORPUSCULAR VOLUME 97.1 fl (80.0-96.0); PLATELET COUNT, AUTOMATED 86 10^3/uL (150-450); RED BLOOD COUNT 3.12 10^6/uL (4.30-6.10); WHITE BLOOD COUNT 6.1 10^3/uL (4.0-10.0)
[2019-12-16 04:57] LABS: CALCIUM LEVEL 8.2 MG/DL (8.8-10.2); CREATININE FOR GFR 2.16 MG/DL (0.70-1.30); GLOMERULAR FILTRATION RATE 31.1 (>35)
[2019-12-16] MEDS: SLF 3 ML SYR IV SCH ×2 (05:59→14:40)
[2019-12-16 08:00] VITALS: BP 152/72
[2019-12-16] MEDS: FINASTERIDE 5 MG TAB PO SCH (09:26)
[2019-12-16] MEDS: MULTIVITAMINS/MINERALS THERAP 1 TAB PO SCH (09:26)
[2019-12-16] MEDS: PANTOPRAZOLE 40MG VIAL (C9113 PER 1) IV SCH (09:26)
[2019-12-16] MEDS: PRAVASTATIN 20 MG TAB PO SCH (09:26)
--- NOTE | 2019-12-16 09:41 | IPNPDOC ---
Text Note Date of Service The patient was seen on 12/16/19. NOTE Subjective: Patient seen and examined at bedside. No acute overnight events reported. Patient has no new medical complaints. Objecitive: VITAL SIGNS: See below General: NAD, lying comfortably in bed HEENT: NC/AT, EOMI, hard of hearing Lungs: CTA B/L Heart: +S1S2, RRR Abd: soft, NT, +BS Ext: no edema ASSESSMENT/PLAN: 84 yo male for two week history of worsening SOB/SWE[place], found to be anemic with heme positive stool. PMHx includes anemia, DM, HTN, OAB, HLD, CKD, BPH and bladder tumor. #GI Bleed - s/p colonoscopy - shows 4 cm ulcerated mass at mid-transverse colon - actively bleeding at beginning of procedure - resolved towards end of procedure - diverticulosis on colonoscopy - NPO - serial H/H - gi c/s appreciated - plan for possible surgery today #anemia - acute blood loss anemia complicated with chronic iron deficiency on oral supplementation #thrombocytopenia - liver US/dopplers completed today - report pending - continue to monitor - consider transfusion if anemia worsens #chronic respiratory failure - uses supplemental oxygen at baseline 2L at night, and during as needed #DIABETES MELLITUS II - insulin sliding scale #HTN - HCTZ and toprol xl as per home meds - with hold parameters #OAB #HLD # APRIL/CKD III - creatinine improving # BPH - continue proscar and hytrin # DIABETIC NEUROPATHY #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 #BLADDER TUMOR - follow with dr mandujano DVT prophylaxis - mechanical Dispo: NPO today for possible OR; discussed code status at length with patient, however not clear if he fully understands; discussed with as well, she is DNR/DNI and feels he would want the same VS,Fishbone, I+O VS, Fishbone, I+O Laboratory Tests 12/15/19 18:47 12/16/19 04:02 Vital Signs Date Time Temp Pulse Resp B/P (MAP) Pulse Ox O2 Delivery O2 Flow Rate FiO2 12/16/19 08:00 98.5 75 16 152/72 (98) 97 Nasal Cannula 2.0 I&O- Last 24 Hours up to 6 AM 12/16/19 06:00 Intake Total 1510 ml Output Total 25 ml Balance 1485 ml MYLES MARISCAL MD Dec 16, 2019 09:41
--- NOTE | 2019-12-16 10:18 | REP ---
ULTRASOUND ABDOMEN WITH DUPLEX DOPPLER ULTRASOUND PORTAL VASCULATURE: Real-time sonographic evaluation of the abdomen performed. The gallbladder is filled with sludge. There is a calculus in the neck of the gallbladder. Common bile duct could not be visualized. Liver demonstrate no mass. Pancreas could not be visualized due to overlying bowel gas. Spleen is not enlarged measuring 12.1 cm in length. Right kidney measures 10.2 x 5.8 x 5.6 cm and left kidney 14.4 x 5.8 x 6.2 cm. There are multiple hypoechoic and cystic nodules bilaterally in the kidneys. There is no definite solid mass. Largest cyst in the right kidney is 4 cm in diameter. Largest cyst in the left kidney is 2 cm in diameter. Abdominal aorta could not be visualized. There is trace free fluid adjacent to the spleen. The study is limited due to bowel gas and body habitus. Real-time sonographic evaluation and duplex Doppler interrogation of the portal vasculature performed. The main portal vein is patent with mildly pulsatile waveform. Right and left portal veins could not be visualized. Hepatic veins are patent with loss of cardiac phasicity suggesting cirrhosis. Peak systolic velocity in the main hepatic artery is 68 cm/s. Flow is seen in the splenic vein near the splenic hilum. It could not be seen more centrally. Superior mesenteric vein could not be visualized. Air-filled bowel is seen anterior to the liver. IMPRESSION: Gallbladder is filled with sludge, with a stone in the neck of the gallbladder. Common bile duct could not be visualized. No liver mass is seen. There are multiple complex cysts of both kidneys without hydronephrosis. Trace free fluid is adjacent to the spleen. There is normal direction of flow in the main portal vein with patent main hepatic artery and hepatic veins. There are mildly pulsatile waveforms in the main portal vein with loss of cardiac phasicity in the hepatic veins suggesting cirrhosis. Electronically Signed by Shawn Cronin MD 12/16/2019 01:15 P
--- NOTE | 2019-12-16 11:21 | IPNPDOC ---
Text Note Date of Service The patient was seen on 12/16/19. NOTE No acute events overnight. He denies nausea, emesis, fevers, or pain. VSSAF NAD abd - soft, NT, ND labs - below A) 84y/o male with acute blood loss anemia secondary to colon mass, thrombocytopenia, and possible cirrhosis P) npo check platelet function tests monitor labs plan for OR this afternoon for colon resection. Iftikhar Nava DO VS,Jenny, I+O VS, Laciee, I+O Laboratory Tests 12/15/19 18:47 12/16/19 04:02 Vital Signs Date Time Temp Pulse Resp B/P (MAP) Pulse Ox O2 Delivery O2 Flow Rate FiO2 12/16/19 08:00 98.5 75 16 152/72 (98) 97 Nasal Cannula 2.0 I&O- Last 24 Hours up to 6 AM 12/16/19 05:59 Intake Total 2410 ml Output Total 25 ml Balance 2385 ml MARTHA NAVA DO Dec 16, 2019 11:21
[2019-12-16 11:58] LABS: HEMATOCRIT 31.4 % (42.0-52.0); HEMOGLOBIN 9.8 g/dl (13.5-17.5); MEAN CORPUSCULAR HEMOGLOBIN 30.3 pg (27.0-33.0); MEAN CORPUSCULAR HGB CONC 31.2 g/dl (32.0-36.5); MEAN CORPUSCULAR VOLUME 97.2 fl (80.0-96.0); RED BLOOD COUNT 3.23 10^6/uL (4.30-6.10); WHITE BLOOD COUNT 5.9 10^3/uL (4.0-10.0)
[2019-12-16 12:00] VITALS: BP 144/67
[2019-12-16 12:01] LABS: PLATELET COUNT, AUTOMATED 86 10^3/uL (150-450)
[2019-12-16 12:55] LABS: COLLAGEN EPINEPHRINE 143 SECONDS (74-162)
--- NOTE | 2019-12-16 14:05 | CR ---
DATE OF CONSULTATION: 12/15/2019 REASON FOR CONSULTATION: Colon mass. HISTORY OF PRESENT ILLNESS: The patient is an 84-year-old male. He presented to the hospital with history of weakness and shortness of breath. He also had leg and shoulder pain. Apparently, he had been taking ibuprofen three times a day for last 2 weeks for his pain control. He was diagnosed with anemia on admission. GI was consulted with the theory that he likely had an upper GI bleed. Upper endoscopy was negative. Therefore, they proceeded to do a lower colonoscopy and incidentally found a transverse colon ulcerated mass that was bleeding actively on exam. Biopsies were taken and the lesion was tattooed. He was sent back to the floor and I was called to evaluate for this mass. The patient denies any abdominal pains. No prior colonoscopies to this. No nausea or vomiting. No history of colon problems in the family either. He also denies any night sweats or loss of weight. PAST MEDICAL HISTORY: Diabetes, hypertension, obstructive sleep apnea, hyperlipidemia, chronic kidney disease, benign prostatic hypertrophy (BPH), diabetic neuropathy, anemia, bladder tumor. PAST SURGICAL HISTORY: Knee surgery. ALLERGIES: None. HOME MEDICATIONS: Please see med record. REVIEW OF SYSTEMS: Pertinent positives and negatives as stated in history of present illness (HPI). PHYSICAL EXAMINATION: General: Alert and oriented times three, in no acute distress. Vitals: Temperature 97.7, pulse 83, respirations 20, blood pressure 129/59, pulse oximetry 92% on 2 liters nasal cannula. HEENT: Pupils equal round and react to light and accommodation. Heart: S1, S2. Regular rate and rhythm. Lungs: Clear to auscultation bilaterally. Abdomen: Soft, nontender, nondistended. Extremities: No clubbing, cyanosis or edema. LABORATORY DATA: White count 7.5, hemoglobin 10, platelets 85, potassium 5.2, creatinine 2.31, calcium 7.8. IMAGING: All he has had so far is a chest x-ray and a vascular ultrasound which was negative for DVT. Chest x-ray showed elevated hemidiaphragm causing low lung volumes, no evidence of acute cardiopulmonary disease. ASSESSMENT/PLAN: The patient is an 84-year-old male with GI bleed secondary to a transverse colon mass that is causing acute blood loss anemia. Dr. Smalls scoped him this afternoon and found the mass. It did appear to be ulcerated and was actively bleeding with large amounts of blood clots in the colon. I was then consulted by medicine. Recommendation at this time is to get a CT of abdomen and pelvis to evaluate the mass as well as for any signs of distant disease. Also will check a CEA level. I have also put him on the OR schedule for tomorrow afternoon for a transverse colon resection. The plan is to try and keep his hemoglobin up between now and then. He has already received 3 units of blood so far. Continue to monitor those values in the morning to see if he needs to get any more. Also may consider giving him some platelets prior to surgery to help with coagulation. I have explained all the risks and benefits of surgery with him as well as his . He understands and wants us to proceed with whatever we feel is necessary. Will reevaluate his labs again the morning and make sure his potassium is stable because he does have some hyperkalemia still. Will make sure that his anemia and thrombocytopenia are controlled prior to considering surgery.
[2019-12-16 16:00] VITALS: BP 166/80
[2019-12-16 18:08] LABS: HEMATOCRIT 32.1 % (42.0-52.0); HEMOGLOBIN 10.1 g/dl (13.5-17.5); MEAN CORPUSCULAR HEMOGLOBIN 30.3 pg (27.0-33.0); MEAN CORPUSCULAR HGB CONC 31.5 g/dl (32.0-36.5); MEAN CORPUSCULAR VOLUME 96.4 fl (80.0-96.0); RED BLOOD COUNT 3.33 10^6/uL (4.30-6.10); WHITE BLOOD COUNT 5.8 10^3/uL (4.0-10.0)
[2019-12-16 18:09] LABS: PLATELET COUNT, AUTOMATED 85 10^3/uL (150-450)
[2019-12-16] MEDS ORDERED: fentaNYL 250 MCG/5 ML INJECTION (J3010) As Ordered ONE (19:44)
[2019-12-16] MEDS ORDERED: ONDANSETRON 4MG/2ML VIAL As Ordered ONE (19:44)
[2019-12-16] MEDS ORDERED: propofoL 200 MG/20 ML VIAL As Ordered ONE (19:44)
[2019-12-16] MEDS ORDERED: LIDOCAINE 2% 100MG/5ML SDV (FOR ANES.) As Ordered ONE (19:44)
[2019-12-16] MEDS ORDERED: dexameTHASONE 4 MG/ML 1ML VIAL (J1100 PER 1MG) As Ordered ONE (19:44)
[2019-12-16] MEDS ORDERED: MIDAZOLAM INJ 2MG/2ML VIAL (J2250 PER 1MG) As Ordered ONE (19:44)
[2019-12-16] MEDS ORDERED: ROCURONIUM BROMIDE 50 MG/5 ML VIAL As Ordered ONE ×2 (19:44→21:05)
[2019-12-16] MEDS ORDERED: BUPIVACAINE/EPIN 0.25% 30 ML VIAL As Ordered ONE (19:49)
[2019-12-16] MEDS ORDERED: ERTAPENEM 1GM VIAL(INVanz) (J1335 PER 500MG) As Ordered ONE (20:48)
[2019-12-16] MEDS: hydroCHLOROthiazide 12.5 MG CAPSULE PO SCH (21:00)
[2019-12-16] MEDS ORDERED: PHENYLephrine HCL 500 MCG/5 ML (100MCG/ML) SYRINGE (J2370) As Ordered ONE (21:01)
[2019-12-16] MEDS ORDERED: VASOPRESSIN INJ 20 UNITS/ML VIAL As Ordered ONE (21:16)
[2019-12-16] MEDS ORDERED: ACETAMINOPHEN 1000MG 100ML IV BTL (OFIRMEV) (J0131 PER 10MG) As Ordered ONE (21:33)
[2019-12-16] MEDS ORDERED: SUGAMMADEX SODIUM 500 MG/5 ML VIAL (BRIDION) As Ordered ONE (21:35)
[2019-12-16] MEDS ORDERED: HYDROmorphone HCL 2 MG/ML 1ML VIAL (J1170) As Ordered ONE (22:11)
[2019-12-16] MEDS ORDERED: NORCO, ANEXSIA 5/325MG TABLET (HYDROcodone/ACETAMINOPHEN) PO PRN (23:00)
[2019-12-16] MEDS ORDERED: MORPHINE 2 MG/ML 1ML VIAL (J2270) IV PRN (23:00)
[2019-12-16] MEDS ORDERED: KETOROLAC 30 MG/ML 1ML VIAL IV PRN (23:00)
[2019-12-16] MEDS ORDERED: ONDANSETRON 4MG/2ML VIAL IV PRN (23:00)
[2019-12-16] MEDS ORDERED: NS 1,000 ML IV SCH (23:00)
[2019-12-16] MEDS ORDERED: fentaNYL 100 MCG/2 ML INJECTION (J3010) IV PRN (23:30)
[2019-12-16] MEDS ORDERED: LR 1,000 ML IV SCH (23:30)
[2019-12-17] VITALS (11 sets, daily range): BP systolic 108–129; BP diastolic 54–80
[2019-12-17] MEDS ORDERED: PIPERACILLIN/TAZOBACTAM SOD 3.375 GM in D5W MINI-BAG PLUS 50 ML IV SCH ×2
[2019-12-17] MEDS: TERAZOSIN 5 MG CAP PO SCH ×2 (02:56→20:05)
[2019-12-17] MEDS: METOPROLOL SUCC *XL* 25MG TAB (TopROL *XL*) PO SCH ×2 (02:57→20:05)
[2019-12-17] MEDS: SLF 3 ML SYR IV SCH ×4 (02:58→20:06)
[2019-12-17] MEDS: PANTOPRAZOLE 40MG VIAL (C9113 PER 1) IV SCH ×3 (03:26→20:05)
[2019-12-17 04:31] LABS: HEMATOCRIT 32.9 % (42.0-52.0); HEMOGLOBIN 10.3 g/dl (13.5-17.5); MEAN CORPUSCULAR HEMOGLOBIN 30.8 pg (27.0-33.0); MEAN CORPUSCULAR HGB CONC 31.3 g/dl (32.0-36.5); MEAN CORPUSCULAR VOLUME 98.5 fl (80.0-96.0); RED BLOOD COUNT 3.34 10^6/uL (4.30-6.10); WHITE BLOOD COUNT 7.8 10^3/uL (4.0-10.0)
[2019-12-17 04:33] LABS: PLATELET COUNT, AUTOMATED 89 10^3/uL (150-450)
[2019-12-17 04:43] LABS: CALCIUM LEVEL 8.2 MG/DL (8.8-10.2); CREATININE FOR GFR 2.3 MG/DL (0.70-1.30); GLOMERULAR FILTRATION RATE 28.9 (>35); POTASSIUM SERUM 5.6 MEQ/L (3.5-5.1)
[2019-12-17] MEDS ORDERED: IPRATROPIUM 0.5MG/ALBUTEROL 2.5MG INH SOL UD 3ML (DUONEB) NEB PRN (05:30)
--- NOTE | 2019-12-17 08:26 | IPNPDOC ---
Text Note Date of Service The patient was seen on 12/17/19. NOTE No acute events overnight. He denies nausea, emesis, fevers, or flatus. His pain is controlled. He is very lethargic still. VSSAF NAD abd - soft, TTP appropriate, dressings c/d/i, drain fell out overnight labs - below A) 84y/o male w/ anemia secondary to transverse colon mass POD#1 s/p RA extended rt hemicolectomy P) sips and chips ambulate OOB to chair PT/OT IS await return of bowel function Iftikhar Nava DO VS,Jenny, I+O VS, Jenny, I+O Laboratory Tests 12/16/19 11:47 12/16/19 17:57 12/17/19 03:55 Vital Signs Date Time Temp Pulse Resp B/P (MAP) Pulse Ox O2 Delivery O2 Flow Rate FiO2 12/17/19 05:41 97.6 96 20 115/58 (77) 97 Nasal Cannula 5.0 I&O- Last 24 Hours up to 6 AM 12/17/19 05:59 Intake Total 2177 ml Output Total 1250 ml Balance 927 ml MARTHA NAVA DO Dec 17, 2019 08:26
--- NOTE | 2019-12-17 08:57 | IPNPDOC ---
Text Note Date of Service The patient was seen on 12/17/19. NOTE Subjective: Patient seen and examined at bedside. POD #1 for partial colectomy. This morning he is lethargic but follows commands. No other medical complaints Objecitive: VITAL SIGNS: See below General: NAD, lying comfortably in bed HEENT: NC/AT, EOMI, hard of hearing Lungs: CTA B/L Heart: +S1S2, RRR, systolic murmur Abd: soft, +BS, minimal tenderness around surgical site Ext: no edema ASSESSMENT/PLAN: 84 yo male for two week history of worsening SOB/[place], found to be anemic with heme positive stool. PMHx includes anemia, DM, HTN, OAB, HLD, CKD, BPH and bladder tumor. #GI Bleed/mid transverse colonic mass - elevated CEA - s/p partial colectomy POD #1 - sips/chips for today - serial H/H - gi c/s appreciated - surgery c/s appreciated #lethargy/SOB - cxr portable pending - hold iv fluids for now - likely related to post-op anaesthesia #anemia - acute blood loss anemia complicated with chronic iron deficiency on oral supplementation #thrombocytopenia - liver US/dopplers completed - cirrhotic liver? 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
[2019-12-17] MEDS ORDERED: ENOXAPARIN 40MG/0.4ML SYRINGE (J1650 PER 10MG) SC SCH (09:00)
[2019-12-17] MEDS: PRAVASTATIN 20 MG TAB PO SCH (09:57)
[2019-12-17] MEDS: PIPERACILLIN/TAZOBACTAM SOD 3.375 GM in D5W MINI-BAG PLUS 50 ML IV SCH ×3 (09:57→20:06)
[2019-12-17] MEDS: FINASTERIDE 5 MG TAB PO SCH (09:57)
[2019-12-17] MEDS: SENOKOT S TAB PO SCH ×2 (09:57→20:06)
[2019-12-17] MEDS: MULTIVITAMINS/MINERALS THERAP 1 TAB PO SCH (09:57)
[2019-12-17] MEDS ORDERED: SOD POLYSTYRENE SULFONATE SUSP 15 GM/60 ML UD PO ONE (10:00)
--- NOTE | 2019-12-17 11:21 | REP ---
REASON: Chronic dyspnea. COMPARISON: Multiple, the latest 12/12/2019. The technique utilized in obtaining the radiograph has magnified the cardiac silhouette and accentuated the interstitial markings. Once again, there are low lung volumes status quo. Once again, there has been previous median sternotomy and the cardiac silhouette is magnified by technique. There is mild cardiomegaly. There is interstitial fibrotic change status quo. There is a subtle discoid opacity in the left lower lobe. There is no change in the osseous structures. IMPRESSION: 1. Chronic changes. 2. Subsegmental atelectatic change likely in the left lower lobe, however, PA and lateral views of the chest are recommended. Early pneumonia cannot be ruled out. Mild interstitial edema superimposed by chronic fibrotic changes cannot be ruled out. 3. Other findings as described above. Electronically Signed by Adin Angeles DO 12/17/2019 12:07 P
[2019-12-17] MEDS: HumaLOG INSULIN (NovoLOG) PER UNIT SC SCH ×3 (13:12→18:35)
[2019-12-17 18:13] LABS: CALCIUM LEVEL 8.4 MG/DL (8.8-10.2); CREATININE FOR GFR 2.72 MG/DL (0.70-1.30); GLOMERULAR FILTRATION RATE 23.8 (>35); POTASSIUM SERUM 5.2 MEQ/L (3.5-5.1)
[2019-12-17] MEDS: NS 1,000 ML IV SCH (18:35)
[2019-12-17] MEDS: hydroCHLOROthiazide 12.5 MG CAPSULE PO SCH (20:06)
[2019-12-18] VITALS (19 sets, daily range): BP systolic 105–139; BP diastolic 53–63; O2SAT 85–98
[2019-12-18] MEDS: HumaLOG INSULIN (NovoLOG) PER UNIT SC SCH ×4 (00:55→17:35)
[2019-12-18] MEDS: PIPERACILLIN/TAZOBACTAM SOD 3.375 GM in D5W MINI-BAG PLUS 50 ML IV SCH (03:00)
[2019-12-18] MEDS: NS 1,000 ML IV SCH ×2 (03:52→15:14)
[2019-12-18 04:24] LABS: HEMATOCRIT 29.6 % (42.0-52.0); HEMOGLOBIN 9.1 g/dl (13.5-17.5); MEAN CORPUSCULAR HEMOGLOBIN 30.2 pg (27.0-33.0); MEAN CORPUSCULAR HGB CONC 30.7 g/dl (32.0-36.5); MEAN CORPUSCULAR VOLUME 98.3 fl (80.0-96.0); RED BLOOD COUNT 3.01 10^6/uL (4.30-6.10); WHITE BLOOD COUNT 6.6 10^3/uL (4.0-10.0)
[2019-12-18 04:28] LABS: PLATELET COUNT, AUTOMATED 83 10^3/uL (150-450)
[2019-12-18 04:43] LABS: CALCIUM LEVEL 7.8 MG/DL (8.8-10.2); CREATININE FOR GFR 3.09 MG/DL (0.70-1.30); GLOMERULAR FILTRATION RATE 20.6 (>35); POTASSIUM SERUM 4.8 MEQ/L (3.5-5.1)
[2019-12-18] MEDS: SLF 3 ML SYR IV SCH ×3 (06:32→22:00)
--- NOTE | 2019-12-18 07:46 | ECGEPIP ---
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
--- NOTE | 2019-12-18 08:10 | IPNPDOC ---
Text Note Date of Service The patient was seen on 12/18/19. NOTE No acute events overnight. He denies fevers, or flatus. His pain is controlled. He feels a little nauseated, and says he is spitting up a little. VSSAF NAD abd - soft, TTP appropriate, incisions c/d/i labs - below A) 84y/o male w/ anemia secondary to transverse colon mass POD#2 s/p RA extended rt hemicolectomy P) sips and chips ambulate OOB to chair PT/OT IS await return of bowel function Iftikhar Nava DO VS,[place], I+O VS, [place], I+O Laboratory Tests 12/17/19 17:38 12/18/19 04:03 Vital Signs Date Time Temp Pulse Resp B/P (MAP) Pulse Ox O2 Delivery O2 Flow Rate FiO2 12/18/19 08:00 98.6 104 17 110/53 (72) 95 Nasal Cannula 3.0 I&O- Last 24 Hours up to 6 AM 12/18/19 06:00 Intake Total 1300 ml Output Total 575 ml Balance 725 ml MARTHA NAVA DO Dec 18, 2019 08:10
[2019-12-18] MEDS: SENOKOT S TAB PO SCH ×2 (08:49→20:19)
[2019-12-18] MEDS: MULTIVITAMINS/MINERALS THERAP 1 TAB PO SCH (08:49)
[2019-12-18] MEDS: PANTOPRAZOLE 40MG VIAL (C9113 PER 1) IV SCH ×2 (08:49→20:15)
[2019-12-18] MEDS: FINASTERIDE 5 MG TAB PO SCH (08:49)
[2019-12-18] MEDS: PRAVASTATIN 20 MG TAB PO SCH (08:50)
--- NOTE | 2019-12-18 12:06 | IPNPDOC ---
Text Note Date of Service The patient was seen on 12/18/19. NOTE Subjective: Patient seen and examined at bedside. POD #2 for partial colectomy. Much more alert and awake this morning. Objecitive: VITAL SIGNS: See below General: NAD, lying comfortably in bed HEENT: NC/AT, EOMI, hard of hearing Lungs: CTA B/L Heart: +S1S2, RRR, systolic murmur Abd: soft, NT, +BS Ext: no edema ASSESSMENT/PLAN: 84 yo male for two week history of worsening SOB/[place], found to be anemic with heme positive stool. PMHx includes anemia, DM, HTN, OAB, HLD, CKD, BPH and bladder tumor. #GI Bleed/mid transverse colonic mass - elevated CEA - s/p right kasey-colectomy POD #2 - sips/chips for today - serial H/H - gi c/s appreciated - surgery c/s appreciated - IV fluids #lethargy/SOB - cxr portable pending - hold iv fluids for now - likely related to post-op anaesthesia #anemia - acute blood loss anemia complicated with chronic iron deficiency on oral supplementation #thrombocytopenia - liver US/dopplers completed - cirrhotic liver? 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
[2019-12-18] MEDS: TERAZOSIN 5 MG CAP PO SCH (20:11)
[2019-12-18] MEDS: METOPROLOL SUCC *XL* 25MG TAB (TopROL *XL*) PO SCH (20:12)
[2019-12-18] MEDS: hydroCHLOROthiazide 12.5 MG CAPSULE PO SCH (20:19)
--- NOTE | 2019-12-18 22:55 | REPVR ---
PROCEDURE INFORMATION: Exam: XR Chest, 1 View Exam date and time: 12/18/2019 10:23 PM Age: 84 years old Clinical indication: Shortness of breath; Additional info: Crackles in bases/bloody sputum TECHNIQUE: Imaging protocol: XR of the chest Views: 1 view. COMPARISON: [facility] PORTABLE CHEST X-RAY 2019-12-17 09:01 FINDINGS: Lungs: Dependent subsegmental pulmonary atelectasis. Pleural space: Unremarkable. No pleural effusion. No pneumothorax. Heart/Mediastinum: Sternotomy wires and mediastinal surgical clips are present, consistent with previous coronary arterial bypass grafting. Diaphragm: Elevated diaphragm. Bones/joints: Gas distended bowel loops. Severe chronic right shoulder fracture and degenerative changes. Old healed right-sided rib fractures. IMPRESSION: Hypoexpanded lungs with gas distended bowel, and associated dependent subsegmental pulmonary atelectasis. No significant change. Electronically signed by: Tolu Ma On 12/18/2019 22:54:44 PM
[2019-12-19] VITALS (19 sets, daily range): BP systolic 121–148; BP diastolic 59–86; O2SAT 85–100
[2019-12-19] MEDS: NS 1,000 ML IV SCH ×4 (00:48→17:27)
[2019-12-19] MEDS: ACETAMINOPHEN TAB 650MG DOSE (2X325MG) PO PRN (00:49)
[2019-12-19 05:09] LABS: HEMATOCRIT 30.4 % (42.0-52.0); HEMOGLOBIN 9.3 g/dl (13.5-17.5); MEAN CORPUSCULAR HEMOGLOBIN 30.3 pg (27.0-33.0); MEAN CORPUSCULAR HGB CONC 30.6 g/dl (32.0-36.5); RED BLOOD COUNT 3.07 10^6/uL (4.30-6.10); WHITE BLOOD COUNT 8.5 10^3/uL (4.0-10.0)
[2019-12-19 05:14] LABS: PLATELET COUNT, AUTOMATED 89 10^3/uL (150-450)
[2019-12-19 05:26] LABS: CALCIUM LEVEL 7.4 MG/DL (8.8-10.2); CREATININE FOR GFR 3.58 MG/DL (0.70-1.30); GLOMERULAR FILTRATION RATE 17.4 (>35); POTASSIUM SERUM 4.6 MEQ/L (3.5-5.1)
[2019-12-19] MEDS: SLF 3 ML SYR IV SCH ×3 (07:45→21:55)
[2019-12-19] MEDS: HumaLOG INSULIN (NovoLOG) PER UNIT SC SCH ×5 (07:45→21:00)
--- NOTE | 2019-12-19 08:43 | IPNPDOC ---
Text Note Date of Service The patient was seen on 12/19/19. NOTE No acute events overnight. He denies fevers, or flatus. His pain is controlled. He denies nausea and said that he had a BM overnight. VSSAF NAD abd - soft, TTP appropriate, incisions c/d/i labs - below A) 84y/o male w/ anemia secondary to transverse colon mass POD#3 s/p RA extended rt hemicolectomy P) clq diet ambulate OOB to chair PT/OT chest PT IS monitor renal function Iftikhar Nava DO VS,Fishbone, I+O VS, Fishbone, I+O Laboratory Tests 12/19/19 04:57 Vital Signs Date Time Temp Pulse Resp B/P (MAP) Pulse Ox O2 Delivery O2 Flow Rate FiO2 12/19/19 08:00 98.7 95 20 131/62 (85) 91 Nasal Cannula 3.0 I&O- Last 24 Hours up to 6 AM 12/19/19 06:00 Intake Total 1480 ml Output Total 850 ml Balance 630 ml MARTHA NAVA DO Dec 19, 2019 08:43
--- NOTE | 2019-12-19 09:03 | ECHO ---
DATE OF STUDY: 12/17/2019 DATE OF : 1935 AGE: 84 GENDER: Male HEIGHT: 70 inches WEIGHT: 218 pounds BODY SURFACE AREA: 2.17 m2 INPATIENT: U - Room 3217 REFERRING PHYSICIAN: Dr. Dorian Encinas INDICATION: Murmur. MEASUREMENTS 2-D Measurements: RV: 4.0 cm LV: 4.2 cm Septum: 1.4 cm Posterior wall: 1.4 cm Aortic root: 3.8 cm LA: 5.1 cm LVEF: 75% Doppler Measurements: AV: 3.28 m/s LVOT: 0.8 m/s LVOT diameter: 2.3 cm Mean AV gradient: 25 mmHg Dimensionless index: 0.23 KARISHMA: 0.93 cm2 MV - Unable to measure due to superimposition of early and late diastolic filling patterns PV - technically difficult COMMENTS: Sinus tachycardia at 100 BPM, with right bundle branch block. Technically difficult study in light of the patient's body habitus, but some diagnostically useful information was still obtained. Moderate concentric left ventricle hypertrophy with hyperkinetic wall motion. Prominently dilated left atrium. Unable to comment on LV diastolic function in light of superimposed early and late diastolic filling patterns. Right heart chambers upper limits of normal in size with normal wall motion. Unable to estimate the pulmonary arterial pressure. IVC could not be visualized to estimate central venous pressure. Borderline dilated aortic root. Severe calcific aortic stenosis with very mild insufficiency. Moderate mitral annular calcification, but adequate leaflet excursion and no posterior systolic buckling. No visualized mitral insufficiency. Normal appearing tricuspid valve with very mild insufficiency. No apparent intracardiac mass. Minuscule posterior pericardial effusion. Depending on his general medical condition, consideration should be made for cardiac catheterization with view to aortic valve replacement.
[2019-12-19] MEDS: PRAVASTATIN 20 MG TAB PO SCH (09:26)
[2019-12-19] MEDS: MULTIVITAMINS/MINERALS THERAP 1 TAB PO SCH (09:26)
[2019-12-19] MEDS: FINASTERIDE 5 MG TAB PO SCH (09:26)
[2019-12-19] MEDS: PANTOPRAZOLE 40MG VIAL (C9113 PER 1) IV SCH ×2 (09:26→21:49)
[2019-12-19] MEDS: SENOKOT S TAB PO SCH ×2 (09:26→21:50)
--- NOTE | 2019-12-19 10:10 | IPNPDOC ---
Text Note Date of Service The patient was seen on 12/19/19. NOTE Subjective: Patient seen and examined at bedside. POD #3 for right kasey-colectomy. Much more alert and awake this morning. Had two bowel movements, passing gas. Objecitive: VITAL SIGNS: See below General: NAD, lying comfortably in bed HEENT: NC/AT, EOMI, hard of hearing Lungs: CTA B/L Heart: +S1S2, RRR, systolic murmur Abd: soft, NT, +BS Ext: no edema ASSESSMENT/PLAN: 84 yo male for two week history of worsening SOB/[place], found to be anemic with heme positive stool. PMHx includes anemia, DM, HTN, OAB, HLD, CKD, BPH and bladder tumor. Underwent colonoscopy which showed suspicious 4 cm mass at the mid transverse colon, and then subsequent kasey-colectomy. Pathology +adenocarcinoma #GI Bleed/colon cancer - elevated CEA - s/p right kasey-colectomy POD #3 - CLD - serial H/H - gi c/s appreciated - surgery c/s appreciated - IV fluids #APRIL - worsening creatinine - difficult to assess volume status - as per I/O's significantly positive fluid balance over the past few days - diet advanced today, check UA #severe aortic stenosis - as noted on echocardiogram - d/w cardiology; d/w his PCP Dr. Calderon #lethargy/SOB - resolving - likely related to post-op anaesthesia #anemia - acute blood loss anemia complicated with chronic iron deficiency on oral supplementation #thrombocytopenia - liver US/dopplers completed - cirrhotic liver? 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 Bermudez, cardio Dr. Segovia - recommending outpatient follow up VS,Fishbone, I+O VS, Fishbone, I+O Laboratory Tests 6/4/20 04:57 Vital Signs Date Time Temp Pulse Resp B/P (MAP) Pulse Ox O2 Delivery O2 Flow Rate FiO2 12/19/19 08:00 98.7 95 20 131/62 (85) 91 Nasal Cannula 3.0 I&O- Last 24 Hours up to 6 AM 12/19/19 06:00 Intake Total 1480 ml Output Total 850 ml Balance 630 ml MYLES MARISCAL MD Dec 19, 2019 10:10
[2019-12-19] MEDS: METOPROLOL SUCC *XL* 25MG TAB (TopROL *XL*) PO SCH (21:50)
[2019-12-19] MEDS: hydroCHLOROthiazide 12.5 MG CAPSULE PO SCH (21:50)
[2019-12-19] MEDS: TERAZOSIN 5 MG CAP PO SCH (21:50)
[2019-12-20] VITALS (18 sets, daily range): BP systolic 92–166; BP diastolic 56–82; O2SAT 87–95
[2019-12-20] MEDS: SLF 3 ML SYR IV SCH ×3 (04:50→20:46)
[2019-12-20 05:24] LABS: HEMATOCRIT 30.6 % (42.0-52.0); HEMOGLOBIN 9.4 g/dl (13.5-17.5); MEAN CORPUSCULAR HEMOGLOBIN 30.2 pg (27.0-33.0); MEAN CORPUSCULAR HGB CONC 30.7 g/dl (32.0-36.5); MEAN CORPUSCULAR VOLUME 98.4 fl (80.0-96.0); RED BLOOD COUNT 3.11 10^6/uL (4.30-6.10); WHITE BLOOD COUNT 7.7 10^3/uL (4.0-10.0)
[2019-12-20 05:27] LABS: PLATELET COUNT, AUTOMATED 83 10^3/uL (150-450)
[2019-12-20 05:39] LABS: CREATININE FOR GFR 3.63 MG/DL (0.70-1.30); GLOMERULAR FILTRATION RATE 17.1 (>35); POTASSIUM SERUM 4.5 MEQ/L (3.5-5.1)
--- NOTE | 2019-12-20 08:29 | IPNPDOC ---
Text Note Date of Service The patient was seen on 12/20/19. NOTE Subjective: Patient seen and examined at bedside. s/p right kasey-colectomy. States he did not drink much yesterday. No new medical complaints this morning. Asking for food. Extensive discussion with his and cardiologists regarding transfer for further eval/treatment for severe , with recs for o/p follow up. No acute overnight events reported. Objecitive: VITAL SIGNS: See below General: NAD, lying comfortably in bed HEENT: NC/AT, EOMI, hard of hearing Lungs: CTA B/L Heart: +S1S2, RRR, systolic murmur Abd: soft, NT, +BS, midline surgical incision appears well healing, cynthia in place Ext: no edema ASSESSMENT/PLAN: 84 yo male for two week history of worsening SOB/[place], found to be anemic with heme positive stool. PMHx includes anemia, DM, HTN, OAB, HLD, CKD, BPH and bladder tumor. Underwent colonoscopy which showed suspicious 4 cm mass at the mid transverse colon, and then subsequent kasey-colectomy. Pathology +adenocarcinoma #GI Bleed/colon cancer - elevated CEA - s/p right kasey-colectomy - CLD - Hgb remains stable - gi c/s appreciated - surgery c/s appreciated #APRIL - worsening creatinine - difficult to assess volume status - as per I/O's significantly positive fluid balance over the past few days - check UA, d/c HCTZ - nephrology c/s pending #PNA - CT chest suggestive for PNA, patient is SOB - start meropenem - sputum culture/gram stain - MRSA screen - holding off on vanco for now #severe aortic stenosis - as noted on echocardiogram - d/w cardiology in house Dr. Mai; d/w his PCP Dr. Calderon - one month age echo read as moderate - extensive d/w [facility] car[facility] on 12/19/19 - deferring for outpatient follow up - his PCP typically works with Dr. Ramesh for cardiology #lethargy/SOB - resolved #anemia - acute blood loss anemia complicated with chronic iron deficiency on oral supplementation #thrombocytopenia - liver US/dopplers completed - cirrhotic liver? 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 Mai, d/w [facility] transfer center, Dr. Bermudez, cardio Dr. Segovia - recommending outpatient follow up; PCP prefers Dr. Ramesh for follow up VS,Fishbone, I+O VS, Fishbone, I+O Laboratory Tests 12/20/19 05:02 Vital Signs Date Time Temp Pulse Resp B/P (MAP) Pulse Ox O2 Delivery O2 Flow Rate FiO2 12/20/19 04:00 0.5 12/20/19 04:00 98.5 101 16 118/58 (78) 89 Nasal Cannula I&O- Last 24 Hours up to 6 AM 12/20/19 06:00 Intake Total 3635 ml Output Total 550 ml Balance 3085 ml MYLES MARISCAL MD Dec 20, 2019 08:29
[2019-12-20] MEDS: HumaLOG INSULIN (NovoLOG) PER UNIT SC SCH ×4 (08:40→20:22)
[2019-12-20] MEDS: NS 1,000 ML IV SCH ×2 (08:44→17:11)
[2019-12-20] MEDS: SENOKOT S TAB PO SCH ×2 (08:50→20:46)
[2019-12-20] MEDS: PANTOPRAZOLE 40MG VIAL (C9113 PER 1) IV SCH ×2 (08:57→20:46)
[2019-12-20] MEDS: PRAVASTATIN 20 MG TAB PO SCH (08:57)
[2019-12-20] MEDS: MULTIVITAMINS/MINERALS THERAP 1 TAB PO SCH (08:58)
[2019-12-20] MEDS: FINASTERIDE 5 MG TAB PO SCH (08:58)
[2019-12-20] MEDS: ACETAMINOPHEN TAB 650MG DOSE (2X325MG) PO PRN (08:58)
[2019-12-20 11:46] LABS: ABG BASE EXCESS -7.4 (-2.0-2.0); ABG HCO3 20.8 MEQ/L (22.0-26.0); ABG O2 SATURATION 88.2 % (95.0-99.0); ABG PARTIAL PRESSURE CO2 55.2 mmHg (35.0-45.0); ABG PARTIAL PRESSURE O2 60.1 mmHg (75.0-100.0); ABG STANDARD HCO3 18.3 MEQ/L (22.0-26.0); ABG TOTAL CO2 22.5 MEQ/L (23.0-31.0)
[2019-12-20 11:50] LABS: ABG pH (ARTERIAL) 7.194 UNITS (7.350-7.450)
[2019-12-20 12:24] LABS: ALBUMIN 2.1 GM/DL (3.2-5.2); BILIRUBIN,DIRECT 0.1 MG/DL (0.0-0.2); BILIRUBIN,TOTAL 0.3 MG/DL (0.2-1.0); TOTAL PROTEIN 4.7 GM/DL (6.4-8.2)
--- NOTE | 2019-12-20 15:11 | REP ---
REASON FOR EXAM: Dyspnea. The prior exams have been reviewed, the latest of which is dated 11/06/2012. The lack of intravenous contrast decreases the sensitivity of the exam. In addition to the aforementioned limitations, the examination is further limited by the hands of the patient strewn across the chest and lower abdomen and by significant respiratory and other types of motion artifact. No gross mediastinal or hilar adenopathy appears to have developed on this limited exam. There are small bilateral pleural effusions. There is no gross pericardial effusion. Markedly limited evaluation of the imaged upper abdomen shows no significant change from the prior exam. I cannot rule out small bowel air-fluid levels. Evaluation of the osseous structures again shows bilateral rib fractures, healed on the left but certainly more recent/healing on the right. Evaluation of the lung yeung shows marked respiratory motion artifact obscuring the detail. There appears to be an area of consolidation in the right lower lobe with air bronchograms. This has increased significantly compared to the prior exam. IMPRESSION: Abnormalities and limitations as described above. Electronically Signed by Adin nAgeles DO 12/20/2019 05:05 P
[2019-12-20] MEDS: MEROPENEM INJ 1 GM in IV 1 EA IV SCH (17:11)
[2019-12-20] MEDS: SODIUM BICARBONATE 50 MEQ in NS 0.45% 1,000 ML IV SCH (18:19)
--- NOTE | 2019-12-20 19:16 | CR ---
DATE OF CONSULTATION: 12/20/2019 CONSULTING PHYSICIAN: Dr. Dorian Encinas REASON FOR CONSULTATION: Acute kidney injury, elevated creatinine. HISTORY OF PRESENT ILLNESS: Mr. 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 He is currently postoperative day #3. This was performed by Dr. Smalls. He was initially admitted on December 11 for shortness of breath, weakness, and was found to have guaiac positive. He then proceeded to have a an esophagogastroduodenoscopy (EGD) and colonoscopy, where the colonoscopy found an ulcerative mass, which he then had resected by Dr. Nava during this admission. After the procedure, patient had daily labs, which showed his BUN and creatinine slowly elevating to a high of 41/3.63, respectively. At the time of our exam, patient was slightly somnolent and confused. He was oriented to place but could not tell me the time. Patient had decreased oral intake in the last couple of days as well. He currently has intravenous (IV) fluids of normal saline running at 125 mL an hour. Despite this, he continued to have acute kidney injury. Patient was not forthcoming for a review of systems, so remaining of the history was provided by reviewing the chart. PAST MEDICAL HISTORY: 1. 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 2. Diabetes. 3. Hypertension. 4. Obstructive sleep apnea (EN). 5. Hyperlipidemia. 6. Chronic kidney disease. 7. BPH. 8. Diabetic neuropathy. 9. Anemia. 10. Bladder tumor. PAST SURGICAL HISTORY: 1. Knee surgery. 2. Right hemicolectomy by Dr. Nava on December 16. ALLERGIES: No known drug allergies. INPATIENT MEDICATIONS: Insulin sliding scale, Senokot-S, Zofran, hydrocodone, sodium chloride running at 125 mL an hour, finasteride, pravastatin, Protonix, Tylenol, metoprolol, and Hytrin. REVIEW OF SYSTEMS: Unable to obtain, for the patient was not forthcoming. PHYSICAL EXAMINATION: VITAL SIGNS: Temperature 98.1, pulse 100, respirations 16, blood pressure 168/88 (110), pulse oximetry 92 on 1 liter of nasal cannula. Intake total 2885 mL, output total 1200 mL with a positive balance of positive 1685 mL. Weight is not accurate this morning, but it states that he is 103.5 kg and has gained a total of 9 kg in the last 24 hours. GENERAL: This is an 84-year-old elderly male who is alert and oriented times two to person and place but not time. Does not appear in any acute distress. Is kind of somnolent during exam. HEENT: Atraumatic, normocephalic. Flushed skin. Difficult to assess any jugular venous distention (JVD) for the large neck girth, but I do not see any obvious JVD. Trache is midline. HEART: S1, S2, regular rate and rhythm. A 2/6 systolic murmur appreciated on the left upper sternal border with radiation to the apex but not to the carotids. LUNGS: Kind of difficult to assess but clear to auscultate in the upper lobes. Diminished breath sounds at the bases, especially in the right lower lobe. Possibly some wheezing but unsure. ABDOMEN: Morbidly obese, slightly distended but nontender to palpation. Healing surgical incision with cynthia appreciated at midline. Surgical incisions are healing well. LABORATORY DATA: Hematology: WBC 7.7, hemoglobin 9.4, hematocrit 30.6, platelets 83. Chemistry: Sodium 145, potassium 4.5, chloride 112, carbon dioxide 26, anion gap 7, BUN 41, creatinine 3.63, fasting glucose 417, calcium 7.0. ABG this morning: A pH 7.194, pCO2 of 55.2, pO2 of 60.2. Pathology: Gastrointestinal (GI) panel positive for mucinous adenocarcinoma. Blood bank transfused 3 units of packed red blood cells (RBC) on December 11 and 2 on December 14. He has multiple imaging. The last imaging was CT of the chest, which showed areas of consolidation in the right lower lobe with air bronchograms increased significantly compared to the prior exam. ASSESSMENT AND PLAN: 1. Acute kidney injury with a history of chronic kidney disease. On clinical exam, he appears slightly dry despite being on 125 mL of normal saline. He does have an underlying infection that has been seen on CT of the chest that shows air bronchogram. He is on antibiotics with meropenem, which I recommend to continue and to continue to make sure it is renally dosed. We have stopped all nephrotoxic drugs. His hydrochlorothiazide has been discontinued this morning, and I have discontinued his Toradol, which he has not gotten since he has been here. I do believe his acute kidney injury (APRIL) is secondary to his fluid status as well as his non-anion gap metabolic acidosis. 2. Non-anion gap metabolic acidosis. Based on is ABG, this shows that he has an underlying metabolic acidosis. He does have poor oral intake as well as his fluid status being low. We do recommend switching his normal saline to half-normal saline with 50 mEq of sodium bicarbonate running at 100 mL an hour. I do predict that this will help, and we will followup with labs in the morning. I do recommend to bladder scan him, and if he has greater than 300 mL, to straight catheterize him times one. 3. Anemia. Hemoglobin and hematocrit are currently stable at 9.4. He is recorded in our system that he had a total of 3 packed RBC transfused. This is possibly secondary to his recent surgery as well as the fact that he came with anemia due to his colon cancer. At this current time, we will monitor. If his hemoglobin and hematocrit have dropped below 7, will refer to primary team to transfuse. 4. History of obstructive sleep apnea. He was kind of somnolent on exam today. He does have some retention showed on his ABG, but this majority of his acidosis is from his metabolic acidosis. He currently has 2 liters of nasal cannula on board to saturation above 88%-92%. Because of his slightly obese body habitus, he should be on obstructive sleep apnea (EN) protocol and will monitor. 5. Right lower lobe pneumonia . CT of the chest does show air bronchograms on exam. This might play a role in the current somnolence. He is currently meropenem, so continue as prescribed and will follow.
[2019-12-20] MEDS: TERAZOSIN 5 MG CAP PO SCH (20:45)
[2019-12-20] MEDS: METOPROLOL SUCC *XL* 25MG TAB (TopROL *XL*) PO SCH (20:46)
[2019-12-21] VITALS (41 sets, daily range): BP systolic 76–149; BP diastolic 46–64; O2SAT 89–97
[2019-12-21] MEDS: MEROPENEM INJ 1 GM in IV 1 EA IV SCH ×3 (02:04→17:40)
[2019-12-21 05:25] LABS: HEMOGLOBIN 9.6 g/dl (13.5-17.5); MEAN CORPUSCULAR HEMOGLOBIN 30.4 pg (27.0-33.0); MEAN CORPUSCULAR VOLUME 101.3 fl (80.0-96.0); RED BLOOD COUNT 3.16 10^6/uL (4.30-6.10); WHITE BLOOD COUNT 10.2 10^3/uL (4.0-10.0)
[2019-12-21] MEDS: SLF 3 ML SYR IV SCH ×3 (05:27→20:42)
[2019-12-21] MEDS: SODIUM BICARBONATE 50 MEQ in NS 0.45% 1,000 ML IV SCH (05:27)
[2019-12-21 05:30] LABS: PLATELET COUNT, AUTOMATED 92 10^3/uL (150-450)
[2019-12-21 05:42] LABS: EOSINOPHILS 1 % (0-3); LYMPHOCYTES 11 % (16-44); METAMYELOCYTES 1 % (0-0); MONOCYTES 4 % (0-5); MYELOCYTES 6 % (0-0); NEUTROPHILS 75 % (28-66)
[2019-12-21 05:43] LABS: PLATELET ESTIMATE DECREASED (NORMAL)
[2019-12-21 05:46] LABS: POIKILOCYTOSIS 1+; POLYCHROMASIA 1+
[2019-12-21 05:59] LABS: ALBUMIN 2.3 GM/DL (3.2-5.2); BILIRUBIN,TOTAL 0.3 MG/DL (0.2-1.0); CALCIUM LEVEL 7.3 MG/DL (8.8-10.2); CREATININE FOR GFR 4.2 MG/DL (0.70-1.30); GLOMERULAR FILTRATION RATE 14.4 (>35); POTASSIUM SERUM 4.6 MEQ/L (3.5-5.1)
--- NOTE | 2019-12-21 07:17 | IPNPDOC ---
Text Note Date of Service The patient was seen on 12/21/19. NOTE TIME OF SERVICE: 810am Subjective: No acute overnight events. The patient is still lethargic but intermittently arousable. Objective: GEN: NAD INTEGUMENT: spider angiomata on cheeks CVS: RRR/NMRG LUNGS: CTAB on RA ABD: soft PSYCH: lethargic / intermittently arousable Vitals and labs: see below Assessment: is an 84 yr old w a pMH of DM2 w neuropathy, HTN, Dyslipidemia, CKD3, BPH & bladder tumor who presented w dyspnea 2/2 anemia 2/2 colon adenocarcinoma (POD 5); his course was complicated by APRIL on CKD, the discovery of severe , respiratory acidosis and PNA. Plan: 1. Symptomatic Acute on Chronic Anemia. 2/2 GI bleed. s/p resection of Colon Adenocarcinoma. GI and Gen Surg on board - f/u Hg 2. Ileus - per will start PPN and possibly transition TPN 3. APRIL on CKD 3. His UOP is low & bladder scan didn't show any retained urine. His renal function hasnt improved despite IVF. - per Dr.Sindhu Sukhwinder munoz, if the his renal function doesnt improve he may need dialysis 4. Respiratory Acidosis. Suspect he may have undiagnosed & untreated sleep apnea as he uses 2L of O2 at night. ABG showed PCO2 increased to 66.8. CT of the chest done yesterday w/o contrast showed PNA. - transfer to ICU / consulted Pulm to discuss if the pt is a candidate for intubation bc of his AMS, recommended for BIPAP for now 5. RLL PNA - C/W meropenum / f/u sputum culture/gram stain 6. Severe Aortic Stenosis. discussed the findings with (PCP) - the pt will f/u on an out pt basis to discuss TAVR 7. Elevated d-dimer. BLE US were neg. Wells Score for PE is 4 points. He is not on AC bc of the anemia and thrombocytopenia. - f/u VQ Scan/ no not start prophylactic AC because he is at high risk of bleeding with anemia and thrombocytopenia 8. Encephalopathy likely 2/2 Hypercapnea. - frequent neurochecks / decreased [place] to Q12H from q6H / treat hypercapnea 9. Thromobcytopenia. Improving - f/u CBC 10. DM2 w neuropathy - SSI / hypoglycemia protocol / f/u FSBS q4H 11. Chronic HTN. BP down trending. - will decrease metoprolol from 25mg QHS to 12 QHS 12. BPH -c/w finasteride/ terazosin dc bc of drop in BP 13. Bladder Tumor - f/u w Uro on an out pt basis 14. Obesity w BMI of 34.0 - complicates care. DVT Px w SCDs bc of anemia and thrombocytopenia VS,Fishbone, I+O VS, Fishbone, I+O Laboratory Tests 12/21/19 04:13 Vital Signs Date Time Temp Pulse Resp B/P (MAP) Pulse Ox O2 Delivery O2 Flow Rate FiO2 12/21/19 05:00 90 Nasal Cannula 1.0 12/21/19 04:00 98.1 104 18 118/59 (78) I&O- Last 24 Hours up to 6 AM 12/21/19 06:00 Intake Total 1650 ml Output Total 0 ml Balance 1650 ml SUYAPA MENDOZA MD Dec 21, 2019 07:17
[2019-12-21] MEDS: HumaLOG INSULIN (NovoLOG) PER UNIT SC SCH ×2 (07:30→12:00)
[2019-12-21] MEDS: PANTOPRAZOLE 40MG VIAL (C9113 PER 1) IV SCH ×2 (08:34→20:02)
[2019-12-21] MEDS: PRAVASTATIN 20 MG TAB PO SCH ×2 (08:35→09:00)
[2019-12-21] MEDS: FINASTERIDE 5 MG TAB PO SCH ×2 (08:35→09:00)
[2019-12-21] MEDS: MULTIVITAMINS/MINERALS THERAP 1 TAB PO SCH ×2 (08:35→09:00)
[2019-12-21] MEDS: SENOKOT S TAB PO SCH ×2 (08:35→20:02)
[2019-12-21 09:44] LABS: VENOUS BASE EXCESS -7.3 (-2.0-2.0); VENOUS HCO3 22.4 MEQ/L (23.0-27.0); VENOUS O2 SATURATION 99.5 % (60.0-80.0); VENOUS PARTIAL PRESSURE CO2 68.1 mmHg (38.0-50.0); VENOUS PARTIAL PRESSURE O2 262.3 mmHg (30.0-50.0); VENOUS PH 7.135 UNITS (7.330-7.430); VENOUS STANDARD HCO3 18.6 MEQ/L; VENOUS TOTAL CO2 24.5 MEQ/L (24.0-28.0)
[2019-12-21 10:35] LABS: ABG BASE EXCESS -9.2 (-2.0-2.0); ABG HCO3 20.6 MEQ/L (22.0-26.0); ABG PARTIAL PRESSURE O2 67.4 mmHg (75.0-100.0); ABG STANDARD HCO3 16.9 MEQ/L (22.0-26.0); ABG TOTAL CO2 22.7 MEQ/L (23.0-31.0)
[2019-12-21 10:46] LABS: ABG PARTIAL PRESSURE CO2 66.4 mmHg (35.0-45.0)
--- NOTE | 2019-12-21 10:49 | IPNPDOC ---
Text Note Date of Service The patient was seen on 12/21/19. NOTE Patient looks quite lethargic, weak. He answers question appropriately, denies any severe abdominal discomfort, shortness of breath VS: HD stable, sats in mid 90s, tachycardic On exam, mainly has eyes closed, not moving much, looks very weak, lethargic has whole body anasarca lungs relatively clear but shallow effort abdomen: somewhat distended, soft, mild tenderness on palpation around midline extraction site. other port site is c/d/i, no drainage. extremities: edematous on all extremities labs reviewed: POD5 RA lap extended right hemicolectomy He is not doing well. He has metabolic acidosis and worsening renal failure. On chest CT yesterday he was noted to have right lower lobe pneumonia. Available cuts in the abdomen shows an ileus like picture, no free air. He currently is on clear but with his mentation, doubt he will progress with regards to his oral intake, suggest switching to ppn then tpn later after placing a picc line later. VS,[place], I+O VS, [place], I+O Laboratory Tests 12/21/19 04:13 Vital Signs Date Time Temp Pulse Resp B/P (MAP) Pulse Ox O2 Delivery O2 Flow Rate FiO2 12/21/19 08:00 98.7 109 16 110/56 (74) 92 Nasal Cannula 1.0 I&O- Last 24 Hours up to 6 AM 12/21/19 05:59 Intake Total 1650 ml Output Total 0 ml Balance 1650 ml DARREN STEELE MD Dec 21, 2019 10:49
[2019-12-21] MEDS: FUROSEMIDE injection 250 MG in D5W 225 ML IV SCH (12:47)
[2019-12-21 12:53] LABS: ABG BASE EXCESS -8.1 (-2.0-2.0); ABG HCO3 21.5 MEQ/L (22.0-26.0); ABG O2 SATURATION 95.9 % (95.0-99.0); ABG PARTIAL PRESSURE O2 83.3 mmHg (75.0-100.0); ABG STANDARD HCO3 17.8 MEQ/L (22.0-26.0); ABG TOTAL CO2 23.6 MEQ/L (23.0-31.0)
[2019-12-21 12:57] LABS: ABG PARTIAL PRESSURE CO2 66.8 mmHg (35.0-45.0); ABG pH (ARTERIAL) 7.126 UNITS (7.350-7.450)
[2019-12-21] MEDS ORDERED: DEXTROSE 50% 50 ML SYRINGE IV PRN (13:30)
[2019-12-21] MEDS ORDERED: GLUCAGON INJ 1MG VIAL SC PRN (13:30)
[2019-12-21] MEDS ORDERED: GLUCOSE 4GM CHEW TABLET PO PRN (13:30)
--- NOTE | 2019-12-21 13:49 | IPN ---
DATE OF VISIT: 12/21/2019 Mr. Watkins is seen this morning on his bedside. He is sleepy but arousable. He does answer simple questions by saying yes or no. Nursing staff reports no urine output. Bladder scan was done, which did not show any residual urine. He has been receiving IV fluid since yesterday. Mentation has deteriorated this morning and a blood gas was done, which showed a pCO2 of 66 with pH of 7.11. On physical exam, temperature 99.2 degrees Fahrenheit, heart rate 107 per minute and respiratory rate 16 per minute. Blood pressure 98/48 mmHg and oxygen saturation 94%. Head is atraumatic. Neck is supple and jugular venous distention (JVD) difficult to be assessed. I do not see any obvious neck vein distension. Oral mucosa is dry. Heart sounds are tachycardiac and lungs with diminished breath sounds and poor inspiratory effort. Abdomen soft and nontender. Bowel sounds are present. Extremities without any cyanosis or clubbing. Neurologically, patient is lethargic but no focal neurological deficit. LABORATORY DATA: Blood gas this morning showed a pH of 7.11, pCO2 66.4, pO2 67.4 and bicarb 16.9. Chemistry showed sodium 142, potassium 4.6, CO2 24, BUN 47 and creatinine 4.2. Glucose 127 and calcium 7.3. Total protein is 5.0 and albumin 2.3. WBC count is 10.2, hemoglobin 9.6 and hematocrit 32.0. Platelets 92,000. PROBLEMS: 1. Acute renal failure. Patient is oliguric and did not make much urine even with IV fluids given over last 24 hours. At this point, there is no emergent need for dialysis but he is likely to require dialysis if his kidney function does not improve over next 24-48 hours. 2. Respiratory insufficiency and respiratory acidosis. Most likely this is result of his sleep apnea and chronic obstructive pulmonary disease (COPD). Patient has significant CO2 retention. I feel that he will need ventilation community assistant with possible bilevel positive airway pressure (BiPAP). Acidosis is now mostly respiratory in region and likely to improve with BiPAP. 3. Congestive heart failure. Volume status seems to be gradually decompensating. IV fluid is being stopped. patient is hypotensive and I am going to start him on IV Lasix drip in order to try to correct his volume status. If no success, then most likely dialysis will be needed. At this point, there is no emergent need for dialysis today.
[2019-12-21] MEDS ORDERED: NORCO, ANEXSIA 5/325MG TABLET (HYDROcodone/ACETAMINOPHEN) PO PRN (14:45)
[2019-12-21 15:45] LABS: ABG HCO3 20.3 MEQ/L (22.0-26.0); ABG O2 SATURATION 96.3 % (95.0-99.0); ABG PARTIAL PRESSURE CO2 54.8 mmHg (35.0-45.0); ABG PARTIAL PRESSURE O2 88.2 mmHg (75.0-100.0)
[2019-12-21 15:46] LABS: ABG pH (ARTERIAL) 7.187 UNITS (7.350-7.450)
[2019-12-21] MEDS ORDERED: MIDAZOLAM INJ 2MG/2ML VIAL (J2250 PER 1MG) As Ordered ONE (16:17)
[2019-12-21] MEDS ORDERED: MIDAZOLAM INJ 2MG/2ML VIAL (J2250 PER 1MG) IV ONE ×2 (16:30)
[2019-12-21] MEDS ORDERED: PROPOFOL 1,000 MG/100 ML VIAL As Ordered ONE (16:36)
[2019-12-21] MEDS: propofoL 1,000 MG in IV 1 EA IV SCH ×2 (17:09→21:53)
--- NOTE | 2019-12-21 17:24 | CCN ---
DATE: 12/21/2019 START TIME: 1605 STOP TIME: 1709 TIME INVOLVED IN PROCEDURES: Less than 10 minutes. I was called to attend Kvng Antonio here in the intensive care unit. Patient has been examined and chart is reviewed. I had spoken earlier in the day with Dr. Bhatti. In essence, this is an elderly gentleman, admitted on December 11 with a gastrointestinal (GI) bleed. He was found to have colon cancer and underwent resection. Since that time, he has had issues with progressive renal failure and combined metabolic and respiratory acidosis. He is also known to have severe aortic stenosis with a valve area of less than 1 cm sq. He has been having worsening difficulties with his acidosis. Blood gas done yesterday showed a pH 7.194, pCO2 of 55, pO2 of 60. He has been treated with supplemental bicarbonate with worsening of his overall status. A pH of 7.11, pCO2 of 66.4, pO2 of 67 earlier today. He was placed on noninvasive support, and repeat gases with multiple manipulations led only to an improvement in his pH of 7.187, pCO2 of 54, and a pO2 of 88.2. He had variability in his mental status, worsening of abdominal distention and ileus, and therefore it was elected to intubated him. This occupied less than 5 minutes' time on my part. He then required central line placement, as he had marginal blood pressures and borderline intravenous (IV) access, again occupying less than 5 minutes' time. Both these procedures dictated under cover. Initially on exam before intubation, he is arousable but confused and falls right back to sleep. Heart rate 110s, blood pressure 99 systolic, respiratory rate about 18-20 without accessory muscle use. HEENT: Otherwise Normocephalic, atraumatic. Pupils do react. Mucous membranes are dry. No obvious jugular venous distention (JVD). Trachea is in the midline. Chest shows reasonable and symmetric expansion. Some crackles at the bases but no wheezes or rhonchus. Cardiac exam generally regular, distant. There is a murmur. Peripheral pulses markedly diminished. Diffuse edema. Abdomen markedly distended and quiet. No convincing rebound. Mildly tender. Surgical dressings in place. Extremities show at least 1+ edema. Neurologically, he moves all extremities but is weak and confused. Other laboratories show a white blood cell count of 10.2, hemoglobin 9.6, platelet count 92,000, 75% segmented neutrophils, 2% bands. Sodium 142, potassium 4.6, chloride 109, CO2 of 24, BUN 47, creatinine 4.20, glucose 127, BNP 11,793. The most pressing problems requiring my immediate presence at the bedside: 1. Combined respiratory and metabolic acidosis. 2. Congestive heart failure. 3. Aortic stenosis. 4. Colon cancer. 5. Renal failure. At this point, he has been intubated. A central line has been placed. We can monitor central venous pressure (CVP) to really identify his overall volume status, but his aortic stenosis plays a significant role in his overall function. Hopefully by getting his pCO2 diminished, we can optimize his acid base status a little bit more. Ulcer and deep vein thrombosis (DVT) prophylaxis are in place. He is also be monitored closely by nephrology as well as primary service. He is requested to be a full code. His prognosis is guarded at best, and there is a high likelihood of further compromise in view of his age, comorbid disease, and premorbid status. I am also told that he has untreated sleep apnea in the outpatient setting. We will proceed as outlined above. I left the bedside at 1709 hours. A total of 60 minutes of critical time at the bedside, not including the procedures as noted above. NILTON
[2019-12-21] MEDS: MIDAZOLAM INJ 2MG/2ML VIAL (J2250 PER 1MG) IV PRN (17:40)
[2019-12-21 17:53] LABS: ABG BASE EXCESS -6.9 (-2.0-2.0); ABG HCO3 19.3 MEQ/L (22.0-26.0); ABG O2 SATURATION 96.3 % (95.0-99.0); ABG PARTIAL PRESSURE CO2 41.5 mmHg (35.0-45.0); ABG PARTIAL PRESSURE O2 82.5 mmHg (75.0-100.0); ABG STANDARD HCO3 18.8 MEQ/L (22.0-26.0); ABG TOTAL CO2 20.6 MEQ/L (23.0-31.0); ABG pH (ARTERIAL) 7.286 UNITS (7.350-7.450)
[2019-12-21 19:55] LABS: CALCIUM LEVEL 7.2 MG/DL (8.8-10.2); CREATININE FOR GFR 4.92 MG/DL (0.70-1.30); MAGNESIUM LEVEL 1.8 MG/DL (1.8-2.4); POTASSIUM SERUM 4.3 MEQ/L (3.5-5.1)
[2019-12-21] MEDS: METOPROLOL SUCC *XL* 12.5MG PER 1/2 TAB (TopROL *XL*) PO SCH (20:03)
[2019-12-21] MEDS: CHLORHEXIDINE GLUCONATE 0.12 % 15ML UDC (PERIDEX ORAL RINSE) MT SCH (20:42)
[2019-12-22] VITALS (24 sets, daily range): BP systolic 91–152; BP diastolic 50–74
[2019-12-22] MEDS: MEROPENEM INJ 1 GM in IV 1 EA IV SCH ×3 (01:07→17:10)
[2019-12-22] MEDS: propofoL 1,000 MG in IV 1 EA IV SCH ×3 (04:48→23:42)
[2019-12-22 05:00] LABS: HEMOGLOBIN 9.2 g/dl (13.5-17.5); MEAN CORPUSCULAR HEMOGLOBIN 30.3 pg (27.0-33.0); MEAN CORPUSCULAR HGB CONC 31.7 g/dl (32.0-36.5); MEAN CORPUSCULAR VOLUME 95.4 fl (80.0-96.0); PLATELET COUNT, AUTOMATED 85 10^3/uL (150-450); RED BLOOD COUNT 3.04 10^6/uL (4.30-6.10); WHITE BLOOD COUNT 9.7 10^3/uL (4.0-10.0)
[2019-12-22] MEDS: SLF 3 ML SYR IV SCH ×3 (05:11→19:48)
[2019-12-22 05:32] LABS: ALBUMIN 2.1 GM/DL (3.2-5.2); CALCIUM LEVEL 7.6 MG/DL (8.8-10.2); CREATININE FOR GFR 4.82 MG/DL (0.70-1.30); GLOMERULAR FILTRATION RATE 12.3 (>35); PHOSPHORUS LEVEL 4.5 MG/DL (2.5-4.9); POTASSIUM SERUM 3.7 MEQ/L (3.5-5.1)
[2019-12-22 05:40] LABS: ATYPICAL LYMPH 2 % (0-5); EOSINOPHILS 1 % (0-3); LYMPHOCYTES 9 % (16-44); METAMYELOCYTES 5 % (0-0); MONOCYTES 5 % (0-5); MYELOCYTES 4 % (0-0); NEUTROPHILS 62 % (28-66)
[2019-12-22 05:41] LABS: ANISOCYTOSIS 1+; HYPOCHROMASIA 1+; PLATELET ESTIMATE DECREASED (NORMAL)
[2019-12-22 06:04] LABS: ABG BASE EXCESS -3.9 (-2.0-2.0); ABG HCO3 20.9 MEQ/L (22.0-26.0); ABG O2 SATURATION 96.1 % (95.0-99.0); ABG PARTIAL PRESSURE CO2 36.6 mmHg (35.0-45.0); ABG PARTIAL PRESSURE O2 83.6 mmHg (75.0-100.0); ABG STANDARD HCO3 21.2 MEQ/L (22.0-26.0); ABG pH (ARTERIAL) 7.374 UNITS (7.350-7.450)
--- NOTE | 2019-12-22 06:18 | RO ---
DATE OF PROCEDURE: 12/21/2019 PREOPERATIVE DIAGNOSIS: Respiratory failure. POSTOPERATIVE DIAGNOSIS: Respiratory failure. PROCEDURE: Endotracheal intubation. SURGEON: Dante Hodgson MD HAM ROLLING MACHINE OPERATOR: 2 mg of intravenous Versed. Cetacaine spray in the pharynx. ANESTHESIA: DESCRIPTION OF PROCEDURE: After the patient was ventilated with an Ambu bag valve device, he was given 2 mg of intravenous Versed. Oral mucosa and pharynx were anesthetized with Cetacaine spray. Using a #4 Espinosa blade, the vocal cords were visualized. A #8.5 endotracheal tube was then passed easily beyond the level of the cords. Cuff was inflated. The CO2 sensor had a very obvious color change. Good bilateral breath sounds were identified. The tube was then hooked to the ventilator with good return of volumes. Chest x-ray done post procedure showed the tube to be in good position. [facility]
--- NOTE | 2019-12-22 06:24 | RO ---
DATE OF PROCEDURE: 12/21/2019 PREOPERATIVE DIAGNOSIS: Hypotension. POSTOPERATIVE DIAGNOSIS: Hypotension. PROCEDURE: Insertion of triple lumen central venous catheter. Sight was right subclavian vein. Procedure was performed emergently. SURGEON: Dante Hodgson MD OPERATIONS PLANNER: ANESTHESIA: DESCRIPTION OF PROCEDURE: After the right subclavian area was prepped and draped in the usual sterile manner, the area was anesthetized with 1% xylocaine. Using a large bore needle, the right subclavian vein easily cannulated. In a modified Seldinger technique, a triple lumen central venous catheter was easily placed. Several beats of PVCs were noted with the wire in place that resolved once it was removed. Good venous return was obtained from all three ports. Each port was then flushed. The line with sutured in place. Sterile dressing applied. Chest x-ray done immediately post procedure showed no pneumothorax and the line to be in good position.
[2019-12-22] MEDS: SENOKOT S TAB PO SCH ×2 (08:09→19:47)
[2019-12-22] MEDS: CHLORHEXIDINE GLUCONATE 0.12 % 15ML UDC (PERIDEX ORAL RINSE) MT SCH ×2 (09:19→19:47)
[2019-12-22] MEDS: PANTOPRAZOLE 40MG VIAL (C9113 PER 1) IV SCH ×2 (09:19→19:47)
--- NOTE | 2019-12-22 10:02 | CCN ---
DATE: 12/22/2019 START TIME: 851 STOP TIME: 930 I again attended Kvng Antonio here in the intensive care unit. The patient has been examined and the chart reviewed. I spoke at length with the nurse at the bedside. Maximum temperature (T-max) overnight 98.5, blood pressure 109-150s. He has not required vasopressors. Heart rate 60s to 80s with a sinus mechanism. Respiratory rate 15-18 without accessory muscle use. Input and output midnight to midnight 1600 mL in with 1090 mL out. Since midnight, however, he headache had 290 mL in with 1580 mL out. He remains on a Lasix drip managed by nephrology. Central venous pressure (FAN MAIL EDITOR) has varied between high of 12 yesterday to 8 this morning. The laboratories show white blood cell count 9.7, hemoglobin 9.2, platelet count 85,000, 62% segs, 12% bands. Sodium 144, potassium 3.7, chloride 109, CO2 23, BUN 53, creatinine 4.82. Blood gas done this morning on a PRVC rate of 15, tidal volume 500, PEEP 5, FiO2 of 30%, pH 7.374, pCO2 36.6, and a pO2 of 83.6. Chest x-ray shows lines and tubes in good position. Still shows bowel distention. No acute findings. On exam, he is sedate but moves all extremities. Pupils do react. Sclerae clear. Trachea is in the midline. Chest shows diminished but symmetric expansion. There are some crackles at the bases but no other significant focal adventitious breath sounds are identified. Cardiac exam is distant but regular. His murmur is unchanged. Peripheral pulses diminished but palpable. Trace edema. Abdomen is reasonably soft, markedly active hypoactive bowel sounds. Some tenderness to palpation but no obvious rebound. Extremities shows no cyanosis or clubbing. Neurologically, he is sedate but moves all extremities. Psychiatric exam shows him to be sedate. Most pressing problems requiring my presence at the bedside: 1. Respiratory failure requiring mechanical ventilatory support. 2. Congestive heart failure. 3. Aortic stenosis. 4. Renal failure. 5. Ongoing abdominal process. At this point, it appears he is making some urine with the Lasix drip. His renal function has not really changed much. We have so far been able to compensate for his acidosis. He remains on broad-spectrum antimicrobials but he has significant bandemia. Certainly I would be concerned about an on going intra-abdominal process and defer to general surgery in that regard. He has not been able to tolerate antral feeds. Total parenteral nutrition (TPN) was started and I am in full agreement with that. He remains on ulcer and deep venous thrombosis (DVT) prophylaxis. No ventilator changes are planned for today in view of his multiorgan dysfunction. I suspect we will not be able to make much in the way of headway of weaning until we have sorted out his abdominal process. At this point, he remains critically ill. His prognosis is guarded at best. I left the bedside at 0931 hours. 39 minutes of critical care delivered at the bedside not including procedures.
--- NOTE | 2019-12-22 10:48 | RO ---
DATE OF PROCEDURE: 12/16/2019 PREOPERATIVE DIAGNOSIS: Transverse colon mass. POSTOPERATIVE DIAGNOSIS: Transverse colon mass. PROCEDURE: Robotic-assisted extended right hemicolectomy. SURGEON: Dr. Shawn Nava. ESCAPEMENT MATCHER: Dr. Zavala (who assisted with mobilization, retraction, and resection of bowel as was well as the anastomosis). ANESTHESIA: General. ESTIMATED BLOOD LOSS 20 mL. COMPLICATIONS: None. INDICATIONS FOR PROCEDURE: The patient is an 84-year-old male who presented with weakness, anemia, found to have a transverse colon mass on colonoscopy. Recommendation was to proceed with robotic resection. Risks, benefits of procedure not limited but including bleeding, infection, hernia formation, anastomotic leak, damage to surrounding structure need for further surgery discussed in detail with the patient. Informed consent was obtained. Procedure was planned. DESCRIPTION OF PROCEDURE: The patient brought back to operating room 7. Under sufficient sedation, the abdomen was sterilely prepped and draped. Next time-out was done to confirm proper patient, proper procedure. Following that an 8 mm incision made in left lower quadrant. Veress needle inserted and the abdomen was inflated to 50 mmHg. Next the Veress needle was removed and replaced with a 8 mm OptiView port. Once the abdomen was entered, three more ports were placed diagonally across the abdomen. The first one was a 12 mm and two other 8 mm. The ports were docked to the robot. The tattoo was identified in the proximal transverse colon was sitting just inferior to the gallbladder. The omentum was identified just distal to this and bisected. The superior peritoneal attachments to the transverse colon were then dissected free and heading proximal from that point all way around the hepatic flexure and down the lateral ascending colon. Once that was completed, the transverse colon was elevated around the midline. The mesocolon was dissected free until a window was created all the way through to the other side using the cautery. Once that was completed, the cecum was identified and that was raised superiorly. The window was created with the terminal ileum as well. Next, the robotic stapler 45 blue load was used to transect the terminal ileum and the mid transverse colon. Once those were both completed, dissection was started at the cecum circumferentially and mobilizing the lateral attachments off of the duodenum and the kidney, the mesocolon was then taken down all of the way from the cecum, proximal to the mid transverse colon. Once this was done, the specimen was removed. The dissection was done around the transverse colon and around the terminal ileum to mobilize it sufficiently for an anastomosis. Next the two ends of the bowel and the specimen were grasped with laparoscopic graspers. The abdomen was then desufflated, ports were removed from midline. Epigastric incision about 7 cm in length was created. The abdomen was then entered and the wound protector was placed. The specimen was removed. The two ends of the bowel were brought [id number]. A [id number] anastomosis done with a VEENA 75 blue load stapler. Once that was completed, it was oversewn with a couple of interrupted #3-0 silk sutures. Tisseel was placed over top of the staple line. Anastomosis was placed back inside the abdomen. A 19-Faroese Juan Jose drain was placed next to the anastomosis and brought out through the 12 mm port site. The fascia was then closed with #1-0 Vicryl suture. Skin was closed with cyntiha. Drain was sutured in place with #2-0 silk. The abdomen clean and dried. 4x4 and tape were applied ending the procedure. RUBID
--- NOTE | 2019-12-22 11:03 | IPNPDOC ---
Text Note Date of Service The patient was seen on 12/22/19. NOTE TIME OF SERVICE: 805am Subjective: Despite being started on BiPAP, the patient's PCO2 remained elevated and he remained lethargic, therefore, he was intubated electively. Per discussion with his RN he had several bowel movements and his urine output and proved. Yesterday he put out a total of 1 L. This morning he has already put out 1.8 L and has a -1.4 L fluid balance Objective: GEN: Intubated and sedated HEENT: ET tube in place CVS: RRR/NMRG LUNGS: Vent settings 17/ 480/30% / 5 / has bronchovesicular breath sounds bilaterally ABD: Flat/soft NEURO: Normal. Babinski sign / Teixeira Agitation Sedation Score - 2 Vitals and labs: see below Assessment: is an 84 yr old with a PMH of DM2 w neuropathy, HTN, Dyslipidemia, CKD3, BPH, suspected sleep apnea (nocturnal O2 use), & bladder tumor who presented w dyspnea 2/2 anemia 2/2 colon adenocarcinoma (POD 5); his course was complicated by APRIL on CKD, the discovery of severe , PNA and respiratory acidosis with and vent dependent respiratory failure Plan: 1. Acute vent dependent respiratory failure. Repeat ABGs reviewed, respiratory acidosis (hypercapnea) & hypoxemia have resolved. - Vent management per Dr. Hodgson 2. RLL PNA. Sputum culture and respiratory panel were negative - c/w Meropenem (day 3#) & may descalate to Ceftriaxone and doxycycline tomorrow 3. Elevated d-dimer. BLE US were neg. Wells Score for PE is 4 points. He was not on AC for a few days bc of anemia and thrombocytopenia, but was started on prophylaxis dose Heparin yesterday. - VQ Scan ordered for Monday 4. Acute on Chronic Anemia. s/p resection of Colon Adenocarcinoma. GI and Gen Surg on board. Hg is trending down. - f/u Hg 5. Ileus - TPN / Dr. Moreau is on board 6. APRIL on CKD 3. His UOP has improved a bit w lasix drip. - management per 7. Multifactorial Encephalopathy - f/u on mental status once he is extubated / [place] is on hold 8. Severe Aortic Stenosis. discussed the findings with (PCP) - the pt will f/u on an out pt basis to discuss TAVR 9. Thrombocytopenia. Improving - f/u plt# 10. DM2 w neuropathy - SSI / hypoglycemia protocol / f/u FSBS q4H 11. Chronic HTN. BP down trending - metoprolol was reduced from 25mg QHS to 12mg QHS 12. BPH -c/w finasteride/ terazosin on hold bc of drop in BP 13. Bladder Tumor - f/u w Urology on an out pt basis 14. Obesity w BMI of 34.0 - complicates care. DVT Px w Heparin Disposition: pending clinical course I called his to give her an update VS,Jenny, I+O VS, Jenny, I+O Laboratory Tests 12/21/19 19:22 12/22/19 04:40 12/22/19 04:41 Vital Signs Date Time Temp Pulse Resp B/P (MAP) Pulse Ox O2 Delivery O2 Flow Rate FiO2 12/22/19 10:00 84 15 111/62 (78) 96 Ventilator 30 12/22/19 08:00 98.4 12/21/19 16:21 15.0 I&O- Last 24 Hours up to 6 AM 12/22/19 06:00 Intake Total 1190.5 ml Output Total 2045 ml Balance -854.5 ml SUYAPA MENDOZA MD Dec 22, 2019 11:03
--- NOTE | 2019-12-22 11:52 | IPNPDOC ---
Text Note Date of Service The patient was seen on 12/22/19. NOTE Patient with deterioration yesterday related to renal failure, acidosis, respi ratory failure for which he eventually ended up intubated. He is currently getting Lasix drip with resulting diuresis and overall appears improved today. He remains in the ICU, sedated and intubated. Vital signs reviewed He is not on any vasopressor. He is hemodynamically stable. Heart rates in the 70s and 80s, regular. On examination he is sedated with spontaneous movements, no eye opening. Regular heart rate and rhythm, positive murmurs Slight rales in both bases, no wheezing Abdomen is somewhat distended, soft, hypoactive bowel sounds. Port site in the extraction site incisions are clean dry and intact. I could not elicit any response from the patient on palpation Patient has anasarca POD6 RA lap extended right hemicolectomy Postoperative ileus Patient has shown improvement following intubation and diuresis still remains critically ill. From a surgical perspective, he appears to have some evidence of ileus. He has been having a few loose bowel movements yesterday though. He miguel ined somewhat distended. I will start him on TPN at this point. His electrolytes seems to be within normal despite him being in acute renal failure. He currently is on antibiotics pressure on the right lower lobe pneumonia seen on the CT chest 2 days ago. There is no evidence of free air on the imaging at that time. There is some bandemia on the labs this morning and certainly should be watched. After any concerns of worsening, would consider CT of the abdomen to evaluate for any intra-abdominal cause of the infection/inflammation as of now would push on this is from the pneumonia. VS,Fishbone, I+O VS, Fishbone, I+O Laboratory Tests 12/21/19 19:22 12/22/19 04:40 12/22/19 04:41 Vital Signs Date Time Temp Pulse Resp B/P (MAP) Pulse Ox O2 Delivery O2 Flow Rate FiO2 12/22/19 10:00 84 15 111/62 (78) 96 Ventilator 30 12/22/19 08:00 98.4 12/21/19 16:21 15.0 I&O- Last 24 Hours up to 6 AM 12/22/19 06:00 Intake Total 1190.5 ml Output Total 2045 ml Balance -854.5 ml DARREN STEELE MD Dec 22, 2019 11:52
--- NOTE | 2019-12-22 14:01 | IPN ---
DATE OF VISIT: 12/22/2019 Mr. Enrique is seen this afternoon on his bedside. He remains intubated and sedated. IV Lasix drip is in progress with good urine output. His central venous pressure (CVP) was 11 or 12 yesterday and has come down to 8 today. He still has generalized edema. Nursing staff reports that he does respond when he gets oral care, but otherwise he is resting comfortably. Dr. Moreau has already ordered total parenteral nutrition (TPN) as the patient has not been able to take any oral nutrition due to ileus following his colon surgery. His respiratory status is stable on the ventilator with only 30% FiO2 and oxygenating 96%. Intake and output records from yesterday showed total intake of 1600 and output 1090. Today, so far he has output of 2.5 liters with negative fluid balance of just over 2 liters. His head is atraumatic. Endotracheal tube is in place. Neck veins are not abnormally distended. Heart sounds are regular and lungs have good bilateral air entry. Abdomen is soft and bowel sounds are hypoactive. Extremities without any cyanosis or clubbing. Peripheral edema is still present. Today's labs show WBC count 9.7, hemoglobin 9.2 and hematocrit 29.0. Platelets 85,000. Sodium 144, potassium 3.7, CO2 23, BUN 53 and creatinine 4.82. Glucose 86 and calcium 7.6. Albumin is 2.1. Yesterday, his BNP level was 11,793. PROBLEMS: 1. Oliguric acute renal failure superimposed on chronic kidney disease. Patient was oliguric yesterday and an IV Lasix drip was started. He has responded very well with good urine output. His creatinine is slightly decreased today, which is very encouraging. At this point, there is no need for dialysis and we will continue to diurese him and monitor his kidney function on a daily basis. I do not feel that we need to get labs anymore often than once a day at present. 2. Respiratory failure and congestive heart failure. Volume status was decompensated due to anuric renal failure. He remains on the ventilator with only 30% FiO2 and oxygenating well. We hope that with further diuresis his respiratory status will improve further and he will be able to be extubated. 3. Nutrition. TPN orders have already been written by Dr. Moreau. We will monitor his renal profile and magnesium level on daily basis and make adjustments in TPN if needed.
[2019-12-22] MEDS: FUROSEMIDE injection 250 MG in D5W 225 ML IV SCH (14:59)
[2019-12-22] MEDS: HumaLOG INSULIN (NovoLOG) PER UNIT SC SCH ×2 (17:13→23:40)
[2019-12-22] MEDS ORDERED: FAT EMULSION IV 20% 500 ML IV SCH (18:00)
[2019-12-22] MEDS ORDERED: AMINO AC/ELECTROLYTE/DEX/CALC 2,000 ML IV SCH (18:00)
[2019-12-22] MEDS: METOPROLOL SUCC *XL* 12.5MG PER 1/2 TAB (TopROL *XL*) PO SCH (19:46)
[2019-12-23] VITALS (25 sets, daily range): BP systolic 89–149; BP diastolic 51–70; O2SAT 93–94
[2019-12-23] MEDS: MEROPENEM INJ 1 GM in IV 1 EA IV SCH ×3 (01:51→17:42)
[2019-12-23] MEDS: MIDAZOLAM INJ 2MG/2ML VIAL (J2250 PER 1MG) IV PRN ×5 (02:43→22:21)
[2019-12-23 04:48] LABS: HEMATOCRIT 29.4 % (42.0-52.0); MEAN CORPUSCULAR HEMOGLOBIN 31.5 pg (27.0-33.0); MEAN CORPUSCULAR VOLUME 92.7 fl (80.0-96.0); PLATELET COUNT, AUTOMATED 100 10^3/uL (150-450); RED BLOOD COUNT 3.17 10^6/uL (4.30-6.10); WHITE BLOOD COUNT 14.3 10^3/uL (4.0-10.0)
[2019-12-23 05:08] LABS: ATYPICAL LYMPH 1 % (0-5); BASOPHILS 1 % (0-1); EOSINOPHILS 6 % (0-3); LYMPHOCYTES 8 % (16-44); METAMYELOCYTES 10 % (0-0); MONOCYTES 9 % (0-5); MYELOCYTES 3 % (0-0); NEUTROPHILS 55 % (28-66); PLATELET ESTIMATE NORMAL (NORMAL)
[2019-12-23 05:09] LABS: POLYCHROMASIA 1+
[2019-12-23 05:10] LABS: ANISOCYTOSIS 1+
[2019-12-23 05:11] LABS: ALBUMIN 2.1 GM/DL (3.2-5.2); CALCIUM LEVEL 7.7 MG/DL (8.8-10.2); CREATININE FOR GFR 4.3 MG/DL (0.70-1.30); MAGNESIUM LEVEL 1.7 MG/DL (1.8-2.4); PHOSPHORUS LEVEL 3.1 MG/DL (2.5-4.9); POTASSIUM SERUM 2.9 MEQ/L (3.5-5.1)
[2019-12-23] MEDS: HumaLOG INSULIN (NovoLOG) PER UNIT SC SCH ×3 (05:56→17:41)
[2019-12-23] MEDS ORDERED: MAG SULF 1GM/100ML (MAG RUN) 1 GM in IV 1 EA IV ONE (06:00)
[2019-12-23] MEDS: SLF 3 ML SYR IV SCH ×3 (06:00→19:53)
[2019-12-23] MEDS ORDERED: POTASSIUM CHLORIDE 10% LIQ 20 MEQ/15 ML UDC PO ONE (06:00)
[2019-12-23] MEDS: propofoL 1,000 MG in IV 1 EA IV SCH ×3 (06:06→19:53)
[2019-12-23 06:13] LABS: ABG BASE EXCESS 2.1 (-2.0-2.0); ABG HCO3 25.5 MEQ/L (22.0-26.0); ABG O2 SATURATION 93.8 % (95.0-99.0); ABG PARTIAL PRESSURE CO2 35.1 mmHg (35.0-45.0); ABG PARTIAL PRESSURE O2 69.6 mmHg (75.0-100.0); ABG STANDARD HCO3 26.3 MEQ/L (22.0-26.0); ABG TOTAL CO2 26.6 MEQ/L (23.0-31.0); ABG pH (ARTERIAL) 7.479 UNITS (7.350-7.450)
[2019-12-23] MEDS ORDERED: KCL 10MEQ/100ML SWI (KRUN) 10 MEQ in IV 1 EA IV ONE (08:00)
[2019-12-23] MEDS: SENOKOT S TAB PO SCH ×2 (08:18→19:53)
[2019-12-23] MEDS: CHLORHEXIDINE GLUCONATE 0.12 % 15ML UDC (PERIDEX ORAL RINSE) MT SCH ×2 (08:25→19:52)
[2019-12-23] MEDS: PANTOPRAZOLE 40MG VIAL (C9113 PER 1) IV SCH ×2 (08:25→19:52)
--- NOTE | 2019-12-23 09:18 | IPNPDOC ---
Text Note Date of Service The patient was seen on 12/20/19. NOTE No acute events overnight. He denies fevers, nausea, emesis, or pain. He has had a few BMs, and is tolerating diet. VSSAF NAD abd - soft, TTP appropriate, incisions c/d/i labs - below A) 84y/o male w/ anemia secondary to transverse colon mass POD#4 s/p RA extended rt hemicolectomy P) reg diet ambulate OOB to chair PT/OT chest PT IS monitor renal function I have discussed his case with the Hospitalist. Iftikhar Nava DO VS,Fishbone, I+O VS, Fishbone, I+O Laboratory Tests 12/23/19 04:28 Vital Signs Date Time Temp Pulse Resp B/P (MAP) Pulse Ox O2 Delivery O2 Flow Rate FiO2 12/23/19 07:12 80 15 93 30 12/23/19 06:00 125/58 (80) Ventilator 12/23/19 04:00 97.9 12/21/19 16:21 15.0 I&O- Last 24 Hours up to 6 AM 12/23/19 05:59 Intake Total 1334.2 ml Output Total 4890 ml Balance -3555.8 ml MARTHA NAVA DO Dec 23, 2019 09:18
--- NOTE | 2019-12-23 09:21 | IPNPDOC ---
Text Note Date of Service The patient was seen on 12/23/19. NOTE No acute events overnight. Over the weekend he did get intubated for respiratory distress that is likely secondary to a pneumonia, and his ARF. His renal function is improving with diuretics. He is having lots of loose stools per nursing, and minimal NG output. VSSAF NAD abd - soft, TTP appropriate, incisions c/d/i labs - below A) 84y/o male w/ anemia secondary to transverse colon mass POD#7 s/p RA extended rt hemicolectomy ARF improving aortic stenosis P) wean vent TPN start tube feeds monitor labs Iftikhar Nava DO VS,Fishbone, I+O VS, Fishbone, I+O Laboratory Tests 12/23/19 04:28 Vital Signs Date Time Temp Pulse Resp B/P (MAP) Pulse Ox O2 Delivery O2 Flow Rate FiO2 12/23/19 07:12 80 15 93 30 12/23/19 06:00 125/58 (80) Ventilator 12/23/19 04:00 97.9 12/21/19 16:21 15.0 I&O- Last 24 Hours up to 6 AM 12/23/19 05:59 Intake Total 1334.2 ml Output Total 4890 ml Balance -3555.8 ml MARTHA NAVA DO Dec 23, 2019 09:21
--- NOTE | 2019-12-23 10:08 | CCN ---
DATE OF VISIT: 12/23/2019 START TIME: 819 STOP TIME: 901 I again attended Kvng Enrique here in the intensive care unit. The patient has been examined and the chart reviewed and I spoke at length with the bedside nurse. Dr. Nava has evaluated him already this morning as well. T-max overnight 98.6, blood pressure 115 to 150 systolic and he has not required vasopressors. Heart rate generally in the 70s to 80s with a sinus mechanism. Respiratory rate 15 to 18. He does over breathe the ventilator. Ins and outs midnight to midnight 1290 mL in and 4665 mL out. Most recent laboratories show a white blood cell count of 14.3, hemoglobin 10.0 and platelet count of 100,000 with 55 segs and 7% bands this morning, which is down from yesterday. Sodium 143, potassium 2.9, chloride 106, CO2 28, BUN 51, creatinine 4.30, which is essentially unchanged. Blood gas this morning done on PRVC rate of 15, tidal volume 500, PEEP of 5, FiO2 of 30% has a pH of 7.479, pCO2 of 35.1 and pO2 of 69.6. Sputum culture and gram stain from yesterday shows moderate WBCs with a few gram positive cocci and final culture report pending. Chest x-ray done this morning showed lines and tubes in good position. He remains with abdominal distention. Poor inspiratory effort. On exam, he is sedate, but easily arousable. Pupils react, sclerae are clear. Trachea is in the midline. Oral endotracheal and orogastric tube are in place. Chest shows diminished, but symmetric expansion. There are some occasional rhonchi that clear with suctioning. There are dependent crackles. No other focal adventitious breath sounds are identified. Cardiac exam distant, but regular. Peripheral pulses palpable. Edema is unchanged. Abdomen soft. There are active bowel sounds today. No convincing organomegaly or masses. Dressings dry and intact. Extremities without cyanosis or clubbing. Neurologically, he does move all extremities when sedation is lightened. Psychiatric exam shows him to be sedate. The most pressing problems requiring my immediate presence at the bedside: 1. Respiratory failure requiring mechanical ventilatory support. 2. Mild metabolic alkalosis. 3. Colon cancer. 4. Renal failure. At this point, we will decrease his ventilatory support somewhat. Will recheck a blood gas. His nutrition is being managed by general surgery and he apparently is to begin trickle feeds today. I am in full agreement with that. His electrolytes are being repleted by the hospitalist service. He is now off the Lasix drip and this is managed by nephrology. He is making reasonable urine output, but his creatinine has not improved much. We await final decision regarding what if anything can be done regarding his aortic stenosis, especially in view of his overall status. At this point, he remains critically ill. He has multi organ dysfunction and his prognosis is guarded at best. If he makes some progress, then hopefully tomorrow we can switch him to a more standard mode of ventilation in hopes of achieving some sort of respiratory muscle reconditioning with hopes of weaning and extubation. Ulcer and deep vein thrombosis (DVT) prophylaxis are in place. Overall, he remains critically ill. I left the bedside at 0902 hours. 42 minutes of critical care time delivered at the bedside, not including procedures.
[2019-12-23 11:11] LABS: ABG BASE EXCESS 2.4 (-2.0-2.0); ABG HCO3 26.7 MEQ/L (22.0-26.0); ABG O2 SATURATION 92.9 % (95.0-99.0); ABG PARTIAL PRESSURE CO2 39.9 mmHg (35.0-45.0); ABG PARTIAL PRESSURE O2 67.5 mmHg (75.0-100.0); ABG STANDARD HCO3 26.6 MEQ/L (22.0-26.0); ABG TOTAL CO2 27.9 MEQ/L (23.0-31.0); ABG pH (ARTERIAL) 7.443 UNITS (7.350-7.450)
--- NOTE | 2019-12-23 11:59 | REP ---
REASON: Followup. Today's exam is 12/21/2019 at 4:48 p.m. and it is compared to the latest prior to that exam of 12/18/2019 at 10 p.m. Preliminary report is given by Dr. Urbina. The technique utilized in obtaining the radiograph has magnified the cardiac silhouette and accentuated the interstitial markings. REASON: Status post intubation. Since the last examination, a nasogastric tube has been placed. The distal aspect of the tube is coiled within the stomach. Since the last examination, an endotracheal tube has been placed, the tip of which is in satisfactory position at the level of the aortic knob. Since the last examination, the right-sided subclavian central venous catheter has been placed the tip of which is in the superior vena cava. Note is again made of previous median sternotomy. There is cardiomegaly accentuated by technique. There are chronic lung field changes which appear stable. No acute patchy parenchymal opacities appear to have developed on this limited portable exam with hypoexpanded lung yeung. There are chronic changes seen involving the osseous structures, status quo. IMPRESSION: Tubes and lines as described above. No change in the lung yeung compared to 12/18/2019 at 10:17 p.m. Electronically Signed by Adin Angeles DO 12/23/2019 03:15 P
--- NOTE | 2019-12-23 12:13 | REP ---
REASON FOR EXAM: Followup. COMPARISON: Multiple. Preliminary report given by Dr. Urbina. This examination is 12/22/2019 at 6:56 a.m., and the latest prior for comparison is 12/21/2019 at 4:48 p.m. Preliminary report was given by Dr. Urbina. The technique utilized in obtaining the radiograph has magnified the cardiac silhouette and accentuated the interstitial markings. The tubes and lines are unchanged. The lung yeung and imaged osseous structures are unchanged. IMPRESSION: No significant change. Electronically Signed by Adin Angeles DO 12/23/2019 03:15 P
[2019-12-23] MEDS: METOPROLOL TART 12.5 MG PER 1/2 TAB NG SCH ×2 (12:21→20:07)
--- NOTE | 2019-12-23 12:31 | IPNPDOC ---
Text Note Date of Service The patient was seen on 12/23/19. NOTE TIME OF SERVICE: 10:35 AM Subjective: There were no acute overnight events. The patient remains intubated, sedated. Per discussion with his RN, he was started on tube feeds and his urine output continues to improve. Yesterday he put out 4.6 L with a fluid balance of -3.3 L. This morning he has produced over 0.4L of urine. Objective: GEN: Intubated and sedated HEENT: ET/OG tube in place CVS: RRR/NMRG LUNGS: bronchovesicular breath sounds bilaterally ABD: Flat/softer than yesterday NEURO: Normal Babinski sign / Teixeira Agitation Sedation Score - 2 Vitals and labs: see below Assessment: is an 84 yr old with a PMH of DM2 w neuropathy, HTN, Dyslipidemia, CKD3 , BPH, suspected sleep apnea (nocturnal O2 use), & bladder tumor who presented w dyspnea 2/2 anemia was found to have 2/2 colon adenocarcinoma (POD 7); his course was complicated by the discovery of severe , APRIL, PNA, & mixed acidosis and hypercapnic respiratory failure requiring ventilatory support. Plan: 1. Acute vent dependent hypoxemic hypercapnic respiratory failure. Hypercapnea & hypoxemia have resolved. - Vent management per Dr. Hodgson 2. RLL PNA. Sputum culture and respiratory panel were negative. - c/w Meropenem (day #4) / He has developed leukocytosis therefore I will hold off deescalating antibiotics and check his procalcitonin 3. Elevated d-dimer. The cause is unclear. Wells Score for PE is 4 points. BLE US were neg. We can't do a CTA w contrast bc of his renal impairment. The VQ Scan cancelled by the department of [place] bc pt is no a vent. He is at risk for an embolic event bc he has a malignancy was not on AC for a few days bc of acute anemia and thrombocytopenia. He was started on prophylaxis dose Heparin by 2 days ago. - hold off additional imaging for now 4. Acute on Chronic Anemia. s/p resection of Colon Adenocarcinoma. GI and Gen Surg on board. - f/u Hg 5. Ileus. Resolved - tube feeds were started this morning by Dr. Nava, he is also on TPN 6. APRIL on CKD 3. His UOP has improved w lasix drip. - management per 7. Multifactorial Encephalopathy - f/u on mental status once he is extubated / [place] is on hold 8. Severe Aortic Stenosis. Per 's note on December 19 he discussed the findings with (PCP) and . Apparently the patient recently had an Echo that showed moderate . Dr. Encinas also discussed the findings with a hospitalist and belling machine operator at [facility] on December 18 and the plan was for the patient to follow up on an out patient basis. - per 's last progress note per d/w the patient's PCP, the pt will f/u on an out pt basis 9. Thrombocytopenia. Improving - f/u Plt # 10. DM2 w neuropathy - SSI / hypoglycemia protocol / f/u FSBS q4H 11. Chronic HTN. BP down trending - switch from metoprolol succinate 12.5mg QHS to metoprolol tartrate 12.5 mg BID with hold paramenters (home med metoprolol succinate 25mg QHS) 12. BPH - c/w finasteride/ terazosin on hold bc of drop in BP 13. Bladder Tumor - f/u w Urology on an out pt basis 14. Obesity w BMI of 34.0 - complicates care. 15. Hypokalemia & Hypomagnesemia - IV KCl and Mag Sulfate DVT Px w Heparin Disposition: pending clinical course I called his to give her an update & discuss the patient's code status. She said that they have not talked about his code status in the past but she would like us to keep him fulll code. VS,Fishbone, I+O VS, Fishbone, I+O Laboratory Tests 12/23/19 04:28 Vital Signs Date Time Temp Pulse Resp B/P (MAP) Pulse Ox O2 Delivery O2 Flow Rate FiO2 12/23/19 12:21 77 101/55 12/23/19 11:00 93 Ventilator 30 12/23/19 10:00 20 12/23/19 08:00 97.3 12/21/19 16:21 15.0 I&O- Last 24 Hours up to 6 AM 12/23/19 06:00 Intake Total 1774.6 ml Output Total 4960 ml Balance -3185.4 ml SUYAPA MENDOZA MD Dec 23, 2019 12:31
--- NOTE | 2019-12-23 13:10 | REP ---
REASON: Followup. COMPARISON: Multiple, the latest 12/22/2019 at 6:56 a.m. Today's exam, 02/22/2020 at 6:42 a.m. The tubes and lines are unchanged. The cardiomediastinal silhouette is unchanged. The lung yeung are unchanged. There are no new abnormal opacities. There is no change in the osseous structures. Chronic changes, status quo. IMPRESSION: No change. Electronically Signed by Adin Angeles DO 12/23/2019 03:18 P
[2019-12-23 13:19] LABS: MAGNESIUM LEVEL 1.9 MG/DL (1.8-2.4); POTASSIUM SERUM 3.1 MEQ/L (3.5-5.1)
[2019-12-23] MEDS ORDERED: POTASSIUM CHLORIDE 10% LIQ 20 MEQ/15 ML UDC FT ONE (15:00)
[2019-12-23] MEDS ORDERED: MULTIVITAMIN -ADULT INJECTION 10 ML, CR/CU/SE/MN/ZN INJ 1 ML in AMINO AC/ELECTROLYTE/DE... IV SCH (18:00)
[2019-12-23] MEDS ORDERED: FAT EMULSION IV 20% 500 ML IV SCH (18:00)
--- NOTE | 2019-12-23 19:04 | IPN ---
DATE: 12/23/2019 Mr. Antonio is seen this morning on his bedside in intensive care unit. He remains intubated and sedated. He did have a good amount of urine output with intravenous Lasix over last 24 hours. PHYSICAL EXAMINATION: Temperature 97.3 degrees Fahrenheit, heart rate 75 per minute, and respiratory rate 20 per minute. Central venous pressure (CVP) is reported at 11 this morning. Blood pressure is 116/57 mm of mercury, and oxygen saturation 94% on the ventilator with 30% FiO2. Intake and output records from yesterday show a negative fluid balance of 3.37 liters. Total intake was 1290 and output 4665. Today so far he has 1800 mL urine output. His head is atraumatic. Neck is supple and jugular venous distention (JVD) not elevated. Endotracheal tube is in place. Heart sounds are regular, and lungs have good bilateral air entry. Abdomen soft and bowel sounds are normal. Extremities have no cyanosis or clubbing. Peripheral edema has almost completely resolved. Neurologically, he is sedated and not able to respond at present. Today's labs show WBC count 14.3, hemoglobin 10.0, hematocrit 29.4, platelets 100,000. Sodium 143, potassium 2.9, CO2 of 28, BUN 51, and creatinine 4.30. Glucose 205 and calcium 7.7. Magnesium level is 1.7. PROBLEMS: 1. Acute renal failure superimposed on chronic kidney disease. The patient is nonoliguric with good urine output over last 24 hours. He has been receiving IV Lasix drip, and volume status seems to be significantly improved. I am going to stop the IV Lasix drip and hope that he will continue urinating without diuretic need. 2. Hypokalemia. This is related to diuresis and is being replaced. The patient has been given potassium supplement via nasogastric (NG) tube, and we will give him one potassium run with 10 mEq intravenously. He is also receiving potassium in the total parenteral nutrition (TPN). Electrolytes should be repeated again this afternoon. 3. Hypomagnesemia. Magnesium level is also slightly low and should be replaced, both in the TPN and intravenously. He has been given 1 gram of magnesium sulfate already this morning. 4. Sepsis. The patient remains on meropenem 1 gram IV every 8 hours. I would recommend to adjust the dose for his renal function. 5. Respiratory failure. At present the patient is still intubated. His volume status is now very well compensated, and it remains up to critical care service to decide about extubation once he is considered appropriate. 6. Nutrition. The patient is receiving TPN for nutrition, and hospitalist service and surgery are ordering the TPN.
[2019-12-24] VITALS (27 sets, daily range): BP systolic 87–127; BP diastolic 51–62
[2019-12-24] MEDS: MIDAZOLAM INJ 2MG/2ML VIAL (J2250 PER 1MG) IV PRN ×3 (00:15→06:22)
[2019-12-24] MEDS: HumaLOG INSULIN (NovoLOG) PER UNIT SC SCH ×4 (00:15→17:59)
[2019-12-24] MEDS: MEROPENEM INJ 1 GM in IV 1 EA IV SCH ×3 (01:50→17:58)
[2019-12-24] MEDS: propofoL 1,000 MG in IV 1 EA IV SCH ×4 (02:33→21:02)
[2019-12-24 05:52] LABS: ABG BASE EXCESS -0.4 (-2.0-2.0); ABG HCO3 23.5 MEQ/L (22.0-26.0); ABG O2 SATURATION 98.6 % (95.0-99.0); ABG PARTIAL PRESSURE CO2 35.6 mmHg (35.0-45.0); ABG STANDARD HCO3 24.2 MEQ/L (22.0-26.0); ABG TOTAL CO2 24.6 MEQ/L (23.0-31.0); ABG pH (ARTERIAL) 7.438 UNITS (7.350-7.450)
[2019-12-24 05:54] LABS: HEMATOCRIT 27.1 % (42.0-52.0); MEAN CORPUSCULAR HGB CONC 33.2 g/dl (32.0-36.5); MEAN CORPUSCULAR VOLUME 93.4 fl (80.0-96.0); PLATELET COUNT, AUTOMATED 106 10^3/uL (150-450)
[2019-12-24] MEDS: SLF 3 ML SYR IV SCH ×3 (06:00→20:15)
[2019-12-24 06:16] LABS: ALBUMIN 1.9 GM/DL (3.2-5.2); CALCIUM LEVEL 7.8 MG/DL (8.8-10.2); CREATININE FOR GFR 4.33 MG/DL (0.70-1.30); GLOMERULAR FILTRATION RATE 13.9 (>35); MAGNESIUM LEVEL 1.9 MG/DL (1.8-2.4); PHOSPHORUS LEVEL 2.5 MG/DL (2.5-4.9); POTASSIUM SERUM 3.9 MEQ/L (3.5-5.1)
[2019-12-24 06:20] LABS: WHITE BLOOD COUNT 40.1 10^3/uL (4.0-10.0)
[2019-12-24 07:11] LABS: ATYPICAL LYMPH 5 % (0-5); EOSINOPHILS 1 % (0-3); LYMPHOCYTES 19 % (16-44); METAMYELOCYTES 6 % (0-0); MYELOCYTES 9 % (0-0); NEUTROPHILS 55 % (28-66)
[2019-12-24 07:12] LABS: HYPOCHROMASIA 2+; PLATELET ESTIMATE NORMAL (NORMAL); SMUDGE CELLS 4+
--- NOTE | 2019-12-24 08:22 | IPN ---
DATE OF SERVICE: 12/24/2019 The patient remains oliguric overnight. Urine output was 150 mL since midnight. Systolic pressure remains 90s, but patient is on propofol drip, saturating 95%. FiO2 of 30%. He is sedated, nonresponsive. The patient had spike in white count to 40,000 from 14.8, currently broadly covered with IV meropenem. The patient was on Senokot and had on 12/22/2019 five incontinent bowel movements, one bowel movement yesterday. Per respiratory therapist, he had a lot of secretions yesterday with plans for bronchoscopy this morning. Currently sinus rhythm on telemetry. Ventricular rate of 80-90. Review of systems could not be obtained as the patient is sedated on IV propofol drip on mechanical ventilation. Vitals: Temperature 98.9, pulse 81 - sinus, respiratory rate 17, blood pressure 91/51, 84% on vent 35% FiO2. Generally, the patient is intubated. No jugular venous distention (JVD). No thyromegaly. Trachea is midline. Pupils are reactive. Lungs: Diminished breath sounds with fine crackles. Heart: S1, S2. Sinus rhythm. Abdomen: Soft. Positive bowel sounds. No abdominal bruits. Dressings dry. Extremities: No cyanosis, clubbing. Skin: Warm, dry, well perfused, pink in color. Trace edema bilateral lower extremities. White count 40,000, hemoglobin 9, hematocrit 27, platelet count 106. Zhyony593, potassium 3.9, chloride 105, bicarbonate 29, BUN 58, creatinine 4.33, glucose 287. Chest x-ray pending official report. ASSESSMENT AND PLAN: This is an 84-year-old male admitted on 12/12/2019 with complaints of shortness of breath, dyspnea on exertion, chronic leg and shoulder pain, who has taken ibuprofen for the past 2 weeks for pain control who was admitted for upper gastrointestinal (GI) bleed with history of diabetes, hypertension, overactive bladder, hyperlipidemia, chronic kidney disease Stage III, benign prostatic hypertrophy (BPH), diabetic neuropathy, squamous cell carcinoma of face, anemia, and a bladder tumor. The patient underwent colonoscopy by Dr. Smalls which showed an ulcerated, nonobstructing mass in the mid to transverse colon that was with a bleeding ulcer which was bleeding and oozing, measured at 4 cm and ulcerated. There was diverticulosis, internal hemorrhoids and blood clots throughout the colon. Pathology showed adenocarcinoma in the right colon status post resection by Dr. Nava on 12/16/2019, status post robotic assisted transverse colon resection with right hemicolectomy. The patient was started on total parenteral nutrition (TPN) and on 12/20/2019 developed acute kidney injury managed by nephrology. On 12/21/2019 developed respiratory and metabolic acidosis, congestive heart failure due to severe aortic stenosis and was intubated. Intra line placed with a guarded prognosis and remains full code. Acute issues are as follows: 1. Acute respiratory and metabolic acidosis. Currently intubated and mechanically ventilated, managed by Dr. Hodgson. The patient has had significant secretions overnight and may need a bronchoscopy this morning. 2. Adenocarcinoma of the right colon status post right hemicolectomy, currently on TPN with increase in white count to 40,000 this morning, afebrile, remains sedated on the ventilator. Dr. Nava has been consulted to further evaluate. Will check lactic acid, sed rate and CRP. Currently broadly covered with IV meropenem. Infectious disease specialist has been consulted. On IV, TPN, nothing by mouth status with orogastric tube and tracheal tube in place. 3. Aortic stenosis, severe, per echocardiogram performed on 12/17/2019. The patient has severe calcific aortic stenosis with very mild insufficiency. Left ventricle ejection fraction is 75%. Mean AV gradient is 25 mmHg. KARISHMA of 0.93 cm squared. The patient remains with guarded prognosis. Per patient's business team leader, the patient is to followup regarding severe aortic stenosis. 4. Oliguric renal failure in the setting of respiratory and metabolic acidosis, colon cancer with resection, blood loss anemia secondary to GI bleeding, colon cancer and congestive heart failure. The patient remains hypotensive, currently on IV Lasix drip and remains oliguric. The patient's acidosis has improved. No signs of electrolyte abnormalities. Defer to nephrology and most likely will need dialysis if remains oliguric. Will monitor patient's respiratory status. Await results of the chest x-ray today. 5. Diabetes. Currently on controlled TPN. Managed by surgery. Glucose is 287. May need to adjust to increase insulin. 6. Acute blood loss anemia secondary to colon cancer. No acute indication for red blood cell (RBC) transfusion at this time. 7. Hypertension, currently with low blood pressure, but mean arterial pressure remains at 70. Currently on metoprolol. Diet nothing by mouth, currently on TPN. CODE STATUS: Full code. The patient's health care proxy is his , Patricia, phone number . LATE ENTRY ADDENDUM: CT ABD/PELVIS: perforated diverticulitis. surgery aware, ID consulted, high risk for surgery, no plans for ex-lap. aware and agrees with change to DNR, DNI, and to continue present mgt with medications. is aware of poor, guarded prognosis, and will discuss further recommendations from consultants if patient worsens despite medical therapy. NILTON
[2019-12-24 08:40] LABS: C REACTIVE PROTEIN QUANTITATIV 1.64 MG/DL (0.00-0.30)
[2019-12-24] MEDS: METOPROLOL TART 12.5 MG PER 1/2 TAB NG SCH ×2 (09:00→20:14)
[2019-12-24] MEDS: PANTOPRAZOLE 40MG VIAL (C9113 PER 1) IV SCH ×2 (09:12→20:13)
[2019-12-24] MEDS: CHLORHEXIDINE GLUCONATE 0.12 % 15ML UDC (PERIDEX ORAL RINSE) MT SCH ×2 (09:12→20:13)
--- NOTE | 2019-12-24 09:41 | IPNPDOC ---
Date Seen The patient was seen on 12/24/19. Progress Note Code: DO NOT RESUSCITATE, DO NOT INTUBATE. PLAN: Per [phone] Patricia Enrique HCP , no chest compressions, no defibrillation. continue with active treatment, including surgery if needed, but should the heart stop, no cpr. no defibrillation. is open to MD recommendations. VS, I&O, 24H, Fishbone Vital Signs/I&O Vital Signs Date Time Temp Pulse Resp B/P (MAP) Pulse Ox O2 Delivery O2 Flow Rate FiO2 12/24/19 06:00 30 12/24/19 06:00 83 101/56 (71) 95 Ventilator 12/24/19 04:00 98.9 17 12/21/19 16:21 15.0 I&O- Last 24 Hours up to 6 AM 12/24/19 06:00 Intake Total 3607.4 ml Output Total 1475 ml Balance 2132.4 ml Laboratory Data 24H LABS Laboratory Tests 2 12/23/19 10:58: Blood Gas Bicarbonate Standard 26.6H, Arterial Blood pH 7.443, Arterial Blood Partial Pressure CO2 39.9, Arterial Blood Partial Pressure O2 67.5L, Arterial Blood Total CO2 27.9, Arterial Blood HCO3 26.7H, Arterial Blood Base Excess 2.4H, Arterial Blood Oxygen Saturation 92.9L 12/23/19 12:14: Bedside Glucose (Misc Panel) 209H 12/23/19 12:46: Magnesium Level 1.9 12/23/19 17:36: Bedside Glucose (Misc Panel) 218H 12/24/19 00:08: Bedside Glucose (Misc Panel) 258H 12/24/19 05:35: Immature Granulocyte % (Auto) , Neutrophils (%) (Auto) , Nucleated Red Blood Cells % (auto) 1.8H, Neutrophils 55, Band Neutrophils 5, Lymphocytes (Manual) 19, Eosinophils (Manual) 1, Metamyelocytes 6H, Myelocytes 9H, Atypical Lymphocytes 5, Hypochromasia 2+, Smudge Cells 4+, Platelet Estimate NORMAL, Anion Gap 7L, Glomerular Filtration Rate 13.9L, Calcium Level 7.8L, Phosphorus Level 2.5, Magnesium Level 1.9, Albumin 1.9L 12/24/19 05:36: Blood Gas Bicarbonate Standard 24.2, Arterial Blood pH 7.438, Arterial Blood Partial Pressure CO2 35.6, Arterial Blood Partial Pressure O2 133.0H, Arterial Blood Total CO2 24.6, Arterial Blood HCO3 23.5, Arterial Blood Base Excess -0.4, Arterial Blood Oxygen Saturation 98.6 12/24/19 07:57: Lactic Acid Level 1.7, C-Reactive Protein, Quantitative 1.64H CBC/BMP Laboratory Tests 12/23/19 12:46 12/24/19 05:35 Microbiology Microbiology 12/21/19 Gram Stain - Final, Complete 12/21/19 Sputum Culture - Final, Complete SABRINA LEWIS MD Dec 24, 2019 09:41
--- NOTE | 2019-12-24 09:45 | REP ---
CHEST SINGLE VIEW: Single view of the chest is performed and compared to a prior exam the same day. Mild bibasilar opacities are unchanged. Mildly prominent cardiac silhouette is unchanged. There is calcification of the thoracic aorta. Multiple sternal wires and mediastinal clips are present. Old right rib fractures are noted. There is a right ventral venous catheter again seen with the tip in the right atrium. Endotracheal tube is seen with the tip 4 cm above the claudio. Nasogastric tube is seen with sideport in the stomach. IMPRESSION: Stable exam. Electronically Signed by Shawn Cronin MD 12/25/2019 10:05 P
--- NOTE | 2019-12-24 09:48 | REP ---
CHEST, SINGLE VIEW: Single view of the chest is performed. Comparison made with prior studies, 12/23/2019. Bibasilar opacities are stable. The heart and mediastinum are unchanged. Right central venous catheter, endotracheal tube and nasogastric tube are unchanged. IMPRESSION: Stable exam. Electronically Signed by Shawn Cronin MD 12/25/2019 10:06 P
--- NOTE | 2019-12-24 09:56 | REP ---
CT CHEST WITHOUT IV CONTRAST: CT chest performed without IV contrast. Sagittal and coronal reconstruction images are performed. Comparison is made with a prior study of 12/20/2019. There are low lung volumes. Bibasilar consolidative atelectasis/infiltrate is noted mildly increased since the prior study. There appear to be very small bilateral pleural effusions. No pericardial effusion is seen. The heart is not enlarged. There is no thoracic aortic aneurysm. There is mild atherosclerotic calcification of the thoracic aorta. No gross adenopathy is seen in the chest or in the axillary regions. Endotracheal tube is seen with the tip approximately 1.5 cm above the claudio. Nasogastric tube is seen with sideport in the stomach. There are degenerative changes of the spine with stable compression deformities noted. IMPRESSION: Mild increase in bibasilar consolidative opacities compared to a prior study of 12/20/2019. There are very small bilateral pleural effusions. Electronically Signed by Shawn Cronin MD 12/25/2019 10:07 P
[2019-12-24 09:58] LABS: HEMATOCRIT 28.3 % (42.0-52.0); HEMOGLOBIN 9.5 g/dl (13.5-17.5); MEAN CORPUSCULAR HEMOGLOBIN 31.4 pg (27.0-33.0); MEAN CORPUSCULAR HGB CONC 33.6 g/dl (32.0-36.5); MEAN CORPUSCULAR VOLUME 93.4 fl (80.0-96.0); PLATELET COUNT, AUTOMATED 107 10^3/uL (150-450); RED BLOOD COUNT 3.03 10^6/uL (4.30-6.10)
[2019-12-24 10:10] LABS: ALBUMIN 1.9 GM/DL (3.2-5.2); BILIRUBIN,DIRECT 0.1 MG/DL (0.0-0.2); BILIRUBIN,TOTAL 0.6 MG/DL (0.2-1.0); TOTAL PROTEIN 4.7 GM/DL (6.4-8.2)
[2019-12-24 10:14] LABS: WHITE BLOOD COUNT 42.5 10^3/uL (4.0-10.0)
[2019-12-24 10:17] LABS: ERYTHROCYTE SEDIMENTATION RATE 7 mm/hr (0-20)
--- NOTE | 2019-12-24 10:17 | REP ---
CT ABDOMEN AND PELVIS WITHOUT CONTRAST: CT abdomen and pelvis performed without oral or IV contrast. Sagittal and coronal reconstruction images are performed. Comparison made with prior study of 12/15/2019. The liver is grossly unremarkable. There are gallstones in the gallbladder. Gallbladder is moderately distended. Spleen is grossly unremarkable as are the adrenal glands and pancreas. A few scattered pancreatic calcifications are seen, as were present on the prior study suggesting old pancreatis. There is a tiny calcification about 2-3 mm in diameter along the course of the common bile duct and I suspect this represents a small stone in the common bile duct. Once again, the kidneys demonstrate hyperdense nodules likely representing complex hemorrhagic and/or proteinaceous cysts. There is no hydroureteronephrosis bilaterally. There is moderate atherosclerotic calcification of the abdominal aorta. There is no aneurysm. No adenopathy is seen. Mild free fluid is seen in the upper abdomen. In addition, there are multiple foci of free air surrounding the entire left colon extending into a left inguinal hernia. I suspect this is due to a perforated diverticulum of the left colon. In the pelvis, there is evidence of an intussusception of the rectosigmoid colon. This may be a transient findings. There is no proximal bowel dilatation. A Pedro catheter is seen in a collapsed urinary bladder. There are degenerative changes of the spine. There is a stable compression deformity of L1. IMPRESSION: Free air surrounding the left colon I suspect represents perforation of a colonic diverticulum. Free air extends into a left inguinal hernia. Mild free fluid is seen in the upper abdomen. No abscess is seen. There is an intussusception of the rectosigmoid colon, which may be a transient finding. There is no proximal bowel dilatation. Multiple gallstones are seen in a moderately distended gallbladder. I suspect a 2-3 mm stone in the common bile duct. No other acute findings are seen. The findings were conveyed to Dr. Julian at the time of the exam at approximately 9:30 a.m. 12/24/2019. Electronically Signed by Shawn Cronin MD 12/25/2019 10:08 P
[2019-12-24 10:20] LABS: ATYPICAL LYMPH 4 % (0-5); BASOPHILS 1 % (0-1); EOSINOPHILS 6 % (0-3); LYMPHOCYTES 16 % (16-44); METAMYELOCYTES 5 % (0-0); MONOCYTES 1 % (0-5); MYELOCYTES 5 % (0-0); NEUTROPHILS 51 % (28-66); PLATELET ESTIMATE NORMAL (NORMAL)
[2019-12-24 10:21] LABS: SMUDGE CELLS 4+
--- NOTE | 2019-12-24 10:29 | CCN ---
DATE OF VISIT: 12/24/2019 START TIME: 844 STOP TIME: 925 I again attended Kvng Enrique here in the intensive care unit. The patient has been examined and the chart reviewed. I spoke at length with the nurse at the bedside as well as Dr. Wolf from nephrology. T-max overnight 98.9. Blood pressures 80s to the low 100s. He has not required vasopressors. He has intermittent metoprolol which has hold parameters. Heart rate generally in the 70s to the 90s with sinus mechanism. Respiratory rate 15-20 without accessory muscle use. He is synchronous with the ventilator and does over breathe it. Ins and outs midnight to midnight 3049 mL in with 2585 mL out. CVP this morning is 8. Most recent laboratories show a white blood cell count of 40.1 this morning, 55% segs, 5% bands. Hemoglobin 9.0. Platelet count of 106,000. Sodium 141, potassium 3.9, chloride 105, CO2 29, BUN 58, creatinine 4.33, which is essentially unchanged from yesterday. Albumin remains quite depressed at 1.9. C-reactive protein 1.64. Blood gas done on a PRVC rate of 10, tidal volume 500, PEEP of 5, FiO2 of 30% has a pH of 7.438, pCO2 of 35.6 and pO2 of 133.0. CT of the chest, abdomen and pelvis was just performed and official interpretation is pending. On exam, he is sedate, but arousable. Moves all extremities. Pupils react, sclerae are clear. Trachea is in the midline. Chest shows some occasional rhonchi that do clear with suctioning. Expansion is diminished, but symmetric. Crackles with question of some egophony at the extreme bases. No rubs. Cardiac exam is regular. His murmur is unchanged. Peripheral pulses are diminished, but palpable and his diffuse edema is unchanged. Abdomen shows it to be generally soft, mildly tender. There are active bowel sounds. His ostomy appears to be working well. Neurologically, he is sedate, but moves all extremities. Psychiatric exam shows him to be sedate. The most pressing problems requiring my presence at the bedside: 1. Respiratory failure requiring mechanical ventilatory support. 2. Renal failure. 3. Hypoalbuminemia. 4. Colon cancer status post resection. 5. Aortic stenosis. At this point, his volume status appears reasonable. We will try standard mode of ventilation in hopes of achieving some progress in ventilator weaning. The issue currently at hand is his markedly elevated white blood cell count. We await the official interpretation of his chest, abdomen and pelvis. He does have some findings at the lung bases, but I do not think that this is going to account for the significant increase in his white count. He remains on broad spectrum antimicrobials in the form of meropenem. We await the interpretation of his abdominal CT. He is on total parenteral nutrition (TPN), but it is much earlier in the course than I would expect for him to be developing issues with fungus. If his white count remains elevated, we can consider adding medications for that, if no other source is identified for his elevated white count. He was tolerating very low dose enteral feeds and this is being managed by general surgery. In view of the above, he remains quite critically ill. His prognosis remains guarded at best. We will proceed as outlined above. Ulcer and deep vein thrombosis (DVT) prophylaxis also in place. I left the bedside at 0926 hours. 41 minutes of critical care time delivered at the bedside, not including procedures. RUBID
[2019-12-24] MEDS ORDERED: FUROSEMIDE injection 250 MG in D5W 225 ML IV SCH (11:00)
--- NOTE | 2019-12-24 11:07 | IPNPDOC ---
Text Note Date of Service The patient was seen on 12/24/19. NOTE Overnight his wbc count elevated over 40. CT this am shows possible perforation due to diverticulitis with free air on the left side. I confirmed this finding with the radiologist and looked at the images with him. I then had a long conversation with the and explained the findings to her. Ideally the recommendation is for surgical exploration and a colostomy. However, with his current condition he may or may not survive that. She understands how critical he is, and would like to avoid surgery. She wants us to just keep him comfortable for now and continue with medical therapy. I have passed on this information to the hospitalist, peer specialist, and nurse. VSSAF sedated on vent without pressor support NAD abd - soft, NT, ND, incisions c/d/i labs - below A) 84y/o male w/ anemia secondary to transverse colon mass POD#8 s/p RA extended rt hemicolectomy leukocytosis secondary to likely perforated diverticulitis ARF severe aortic stenosis P) vent support TPN abx hold tube feeds monitor labs will follow Iftikhar Nava DO Jenny JERONIMO, I+O VSJenny, I+O Laboratory Tests 12/23/19 12:46 12/24/19 05:35 12/24/19 09:36 Vital Signs Date Time Temp Pulse Resp B/P (MAP) Pulse Ox O2 Delivery O2 Flow Rate FiO2 12/24/19 10:00 35 12/24/19 10:00 84 98/56 (70) 95 Ventilator 12/24/19 08:00 99.1 17 12/21/19 16:21 15.0 I&O- Last 24 Hours up to 6 AM 12/24/19 06:00 Intake Total 3607.4 ml Output Total 1475 ml Balance 2132.4 ml MARTHA NAVA DO Dec 24, 2019 11:07
[2019-12-24 14:19] LABS: CK-MB VALUE MASS < 1.0 NG/ML (<3.6); CPK CREATINE PHOSPHOKINASE 65 U/L (39-308); MB/CK RELATIVE INDEX 1.54 (< OR =4); POTASSIUM SERUM 3.6 MEQ/L (3.5-5.1); TROPONIN I 0.18 NG/ML (< 0.10)
[2019-12-24] MEDS ORDERED: KCL 20MEQ IN 100ML SWI (KRUN) 20 MEQ in IV 1 EA IV ONE ×2 (15:15)
--- NOTE | 2019-12-24 17:31 | IPN ---
DATE OF VISIT: 12/24/2019 Mr. Enrique seen this morning on his bedside in intensive care unit. He remains intubated and sedated. IV Lasix drip was stopped yesterday due to significant diuresis and negative fluid balance. He did drop his urine output last evening. However, he was also hypotensive. So, I did not reconsider starting the Lasix drip again. This morning his urine output is still low. Blood pressure is barely about 100 mmHg. He remains on total parenteral nutrition (TPN) and tube feeding is on hold. He had a CT scan of chest, abdomen and pelvis done just this morning. On physical exam, temperature 99.1 degrees Fahrenheit, heart rate 84 per minute and respiratory rate 17 per minute. Blood pressure about 98/56 mmHg and oxygen saturation 95%. Head is atraumatic. Neck is supple and jugular venous distention (JVD) is only mildly elevated. Endotracheal and orogastric tubes are in place. Heart sounds are regular and lungs have diminished breath sounds at dependent parts. Abdomen is soft and bowel sounds are present. Extremities without any cyanosis or clubbing. He does have some erythema on his right forearm. Neurologically, he is sedated. Today's labs show WBC count 40.1, hemoglobin 9.0 and hematocrit 27.1. Platelets 106. Sodium 141, potassium 3.9, CO2 29, BUN 58 and creatinine 4.33. Glucose 287 and calcium 7.8. Lactic acid is 1.7. C-reactive protein 1.64. Total bilirubin 0.6. AST 82 and ALT 23. PROBLEMS: 1. Acute renal failure superimposed on chronic kidney disease. No significant change in kidney function over last 24 hours. His urine output has now dropped significantly and he is receiving TPN and medications. He is likely to have a total intake of about 2.5 to 3 liters in 24 hours. I will resume Lasix at 5 mg/h with a clip in order to prevent further hypervolemia and/or try to maintain his intake equal output. 2. Hypokalemia. Potassium level has corrected and improved since yesterday with intravenous supplementation, and at this point his TPN should be continued. 3. Sepsis. His white cell count has increased up to 40,000 this morning. CAT scan of abdomen and pelvis and chest have been done. Now the reports are already here. He does have a chest CT scan showed mild increase in bibasilar consolidative opacities and bilateral small pleural effusions. CT scan of abdomen reported as free air surrounding the left colon with possible perforation. Intussusception of rectosigmoid colon is also noticed. Multiple gallstones with moderately distended gallbladder noted. He remains on antibiotics and surgery is following. 4. Nutrition. Surgery is managing his TPN and tube feeds. 5. Congestive heart failure and aortic stenosis. Patient has known history of severe aortic stenosis and his congestive heart failure is mostly related to acute oliguric renal failure. At this point, there is no emergent indication for dialysis and he is not likely to even tolerate dialysis. We can consider continuous renal replacement therapy (CRRT) if needed. MTDD
[2019-12-24] MEDS ORDERED: AMINO AC/ELECTROLYTE/DEX/CALC 2,000 ML IV SCH (18:00)
[2019-12-24] MEDS ORDERED: FAT EMULSION IV 20% 500 ML IV SCH (18:00)
[2019-12-25] VITALS (13 sets, daily range): BP systolic 82–114; BP diastolic 50–55; O2SAT 93
[2019-12-25] MEDS: HumaLOG INSULIN (NovoLOG) PER UNIT SC SCH ×2 (00:36→06:03)
[2019-12-25] MEDS: MEROPENEM INJ 1 GM in IV 1 EA IV SCH ×2 (02:55→10:22)
[2019-12-25] MEDS: propofoL 1,000 MG in IV 1 EA IV SCH ×2 (04:09→10:21)
[2019-12-25 05:41] LABS: ABG BASE EXCESS -1.1 (-2.0-2.0); ABG HCO3 24.5 MEQ/L (22.0-26.0); ABG O2 SATURATION 93.8 % (95.0-99.0); ABG PARTIAL PRESSURE CO2 44.8 mmHg (35.0-45.0); ABG PARTIAL PRESSURE O2 72.8 mmHg (75.0-100.0); ABG STANDARD HCO3 23.5 MEQ/L (22.0-26.0); ABG TOTAL CO2 25.9 MEQ/L (23.0-31.0); ABG pH (ARTERIAL) 7.356 UNITS (7.350-7.450)
[2019-12-25 05:41] LABS: HEMATOCRIT 26.9 % (42.0-52.0); HEMOGLOBIN 8.9 g/dl (13.5-17.5); MEAN CORPUSCULAR HEMOGLOBIN 30.7 pg (27.0-33.0); MEAN CORPUSCULAR HGB CONC 33.1 g/dl (32.0-36.5); MEAN CORPUSCULAR VOLUME 92.8 fl (80.0-96.0)
[2019-12-25 05:44] LABS: PLATELET COUNT, AUTOMATED 93 10^3/uL (150-450); WHITE BLOOD COUNT 48.3 10^3/uL (4.0-10.0)
[2019-12-25] MEDS: SLF 3 ML SYR IV SCH (06:03)
[2019-12-25 06:06] LABS: CALCIUM LEVEL 7.9 MG/DL (8.8-10.2); CREATININE FOR GFR 4.67 MG/DL (0.70-1.30); GLOMERULAR FILTRATION RATE 12.8 (>35); POTASSIUM SERUM 4.2 MEQ/L (3.5-5.1)
[2019-12-25 06:27] LABS: ATYPICAL LYMPH 6 % (0-5); EOSINOPHILS 3 % (0-3); LYMPHOCYTES 18 % (16-44); METAMYELOCYTES 5 % (0-0); MONOCYTES 7 % (0-5); MYELOCYTES 4 % (0-0); NEUTROPHILS 52 % (28-66)
[2019-12-25 06:28] LABS: ANISOCYTOSIS 1+; PLATELET ESTIMATE DECREASED (NORMAL); POLYCHROMASIA 1+; SMUDGE CELLS 4+
--- NOTE | 2019-12-25 07:27 | IPNPDOC ---
Text Note Date of Service The patient was seen on 12/25/19. NOTE Overnight his wbc count elevated again to over 48. He is still sedated on the vent without any pressors. Minimal urine and stool output. VSSAF sedated on vent without pressor support NAD abd - soft, NT, ND, no rigidity, incisions c/d/i labs - below A) 84y/o male w/ anemia secondary to transverse colon mass POD#9 s/p RA extended rt hemicolectomy leukocytosis secondary to likely perforated diverticulitis ARF severe aortic stenosis P) vent support TPN abx hold tube feeds monitor labs consider adding antifungal will follow Iftikhar Nava DO VS,Fishbone, I+O VS, Fishbone, I+O Laboratory Tests 12/24/19 09:36 12/24/19 13:35 12/25/19 05:31 Vital Signs Date Time Temp Pulse Resp B/P (MAP) Pulse Ox O2 Delivery O2 Flow Rate FiO2 12/25/19 06:00 69 82/50 (61) 92 Ventilator 12/25/19 05:00 35 12/25/19 04:00 97.7 16 12/21/19 16:21 15.0 I&O- Last 24 Hours up to 6 AM 12/25/19 06:00 Intake Total 2582.6 ml Output Total 390 ml Balance 2192.6 ml MARTHA NAVA DO Dec 25, 2019 07:27
[2019-12-25] MEDS ORDERED: LIDOCAINE 1% MDV 20ML VIAL As Ordered ONE (08:50)
[2019-12-25] MEDS: MIDAZOLAM INJ 2MG/2ML VIAL (J2250 PER 1MG) IV PRN (08:55)
--- NOTE | 2019-12-25 09:43 | CCN ---
DATE OF VISIT: 12/25/2019 START TIME: 819 STOP TIME: 904 I again attended Kvng Enrique here in the intensive care unit. The patient has been examined and the chart reviewed. I spoke at length with the nurse at the bedside. He had an issue again last evening with bloody plug in his tube that was able to be suctioned clear. T-max overnight 98.0. Blood pressure 80s to about 100 systolic, not on vasopressors. Heart rate 60 to 70s with a sinus mechanism. Respiratory rate remains 15-18 without accessory muscle use. Ins and outs midnight to midnight 3210 mL in with 405 mL out. No CVP recorded this morning. Most recent laboratories show his white blood cell count up to 48.3, hemoglobin 8.9 and platelet count 93,000 with 52% segs, 5% bands. Sodium 139, potassium 4.2, chloride 103, CO2 29, BUN 67, creatinine up to 4.67, glucose 292. Blood gas done this morning on a PRVC mode, rate of 10, tidal volume 500, PEEP of 5, FiO2 of 30% has a pH of 7.356, pCO2 of 44.8 and pO2 of 72.8. Chest x-ray shows no new findings. Lines and tubes in good position. Some dependent atelectasis and question of edema. On exam, he is sedate, but moves all extremities. Pupils react, sclerae are clear. Trachea is in the midline. Chest does show coarse rhonchi, scattered bilaterally. Expansion is symmetric. Cardiac exam is regular with no gallop. Peripheral pulses diminished, but palpable. Edema is unchanged. Abdomen shows his surgical incision to be healing well. He does have bowel sounds today. Generally soft with no rebound. Extremities show no cyanosis or clubbing. His edema is unchanged. Neurologically, he is sedate, but moves all extremities. The most pressing problems requiring my presence at the bedside: 1. Respiratory failure requiring mechanical ventilatory support. 2. Hemoptysis. 3. Increasing white blood cell count with suspected abdominal perforation. 4. Renal failure, progressive. 5. Aortic stenosis. 6. Colon cancer status post recent resection. 7. History of obstructive sleep apnea by report. At this point, we plan emergent bronchoscopy for his hemoptysis and bloody secretions. I see that his medications have been expanded to add an antifungal and I am in full agreement with this. I spoke with Dr. Bryden yesterday as his wishes conservative treatment. His code status was changed accordingly and I think this is quite appropriate as well. We await the outcome of his bronchoscopy. Will continue his meropenem and now his Diflucan. Nutrition per the primary service. Ulcer and deep vein thrombosis (DVT) prophylaxis are in place. At this point, in view of his progressive multi organ dysfunction and his elevated white count, his prognosis overall is quite poor. We will continue our current level of support. Should he become more septic, I do not think the addition of vasopressors is really in his best interest, especially in view of the above. A total of 35 minutes of critical care time was delivered at the bedside, not including procedures. I left the bedside at 0905 hours.
[2019-12-25] MEDS ORDERED: LIDOCAINE 1% MDV 20ML VIAL SC ONE (09:45)
--- NOTE | 2019-12-25 09:51 | REP ---
CHEST, SINGLE VIEW: Single view of the chest is performed. COMPARISON: 12/24/2019 Endotracheal tube, nasogastric tube and right central venous catheter are again noted with no definite change. Heart and mediastinum are unchanged. Bibasilar opacities appear grossly unchanged. IMPRESSION: Stable exam. Electronically Signed by Shawn Cronin MD 12/26/2019 10:29 A
[2019-12-25] MEDS ORDERED: FLUCONAZOLE 400 MG in IV 1 EA IV SCH (10:00)
--- NOTE | 2019-12-25 10:01 | RO ---
DATE OF PROCEDURE: 12/25/2019 PREPROCEDURE DIAGNOSIS: Hemoptysis. POSTPROCEDURE DIAGNOSIS: Hemoptysis. PROCEDURE: Fiberoptic bronchoscopy. The procedure was performed emergently. SURGEON: Dante Hodgson MD BUILDING SERVICES COORDINATOR: ANESTHESIA: Propofol which was already running, as well as 2 mg of intravenous versed. Local anesthesia was 1% Xylocaine via the bronchoscope. OPERATIVE FINDINGS: 1. Retained bloody plugs. 2. Area of excoriation with some minimal bleeding at the right base. DESCRIPTION OF PROCEDURE: After the patient was identified and the above anesthesia given, the fiberoptic bronchoscope was passed via the existing endotracheal tube. He was ventilated with an Ambu bag valve device throughout the procedure. There was thick old bloody secretions located within the endotracheal tube, and a large amount of time was spent working to get these clear. Once that was done, the scope was then passed out of the end of the endotracheal tube. A very large clot was seen ball valving in and out of the right mainstem. Again, a very significant amount of time was taken, both with a urology stone basket, as well as biopsy forceps, to be able to break this up so it could be suctioned clear. Eventually, it was able to be removed, albeit in pieces. Once this was accomplished, the remainder of the right and left lung were examined. On the right upper lobe, widely patent without any bronchial mucosal abnormality. The bronchus intermedius widely patent. In the basilar segments, especially dependently, there were areas of fresh blood. This was all suction lavage clear. There may be a mild area of excoriation on one of the claudio at the basilar segments. Attention was then turned to the left. Some minimal retained old blood was encountered, and this was easily suction lavage clear. The remainder of the left lung, both upper and lower lobes, easily identified and generally widely patent without other endobronchial mucosal abnormalities. Attention was then returned to the right base. Only minimal blood was encountered there. I suspect that in view of his renal failure and diffuse edema that some continued oozing will be ongoing. If he has more difficulties, we can reinspect this at a later date. We could always consider topical epinephrine and topical thrombin if need be but reasonable hemostasis appears to be the case at the moment. This will be monitored closely. The scope was withdrawn and the procedure terminated. Oxygen saturations remained 99% or greater throughout the examination.
--- NOTE | 2019-12-25 10:19 | IPN ---
DATE: 12/25/2019 SUBJECTIVE: Overnight, the patient remains oliguric, 405 output despite Lasix drip since midnight, currently 125 output since midnight. The patient remains sedated with multiple episodes of mucous plugging and bloody drainage. The patient remains with very high leukocytosis despite broad-spectrum coverage with meropenem. Per family, if the patient has no chance of recovery, comfort measures only. The patient remains critically ill. He is sedated; review of systems could not be obtained. Per RN records, one bowel movement yesterday. PHYSICAL EXAMINATION: Vitals: Temperature 97.7, pulse 70, respiratory rate 16, blood pressure 82/52, 92% on ventilator. FiO2 of 35%. General: The patient is sedated with oral gastric tube and trache in place. Neck: Has no jugular venous distension (JVD). Trachea is midline. No pallor. Lungs: Diminished, but clear to auscultation bilaterally. Heart: S1, S2, sinus rhythm. Systolic ejection murmur at the apex radiating to the carotid. No rubs or gallops. Abdomen: Soft, nontender, nondistended, midline cynthia intact. Lap incisions clean, dry without any significant erythema. No drainage noted. Extremities: No cyanosis or clubbing. No pitting edema. LABORATORY DATA: White count 48.3, hemoglobin 8.2, hematocrit 26.9, platelet count 107. Sodium 139, potassium 4.2, chloride 103, bicarbonate 29, BUN 67, creatinine 4.67, glucose of 292. Blood gas 7.356, pCO 44, pO2 72.8. CT 12/24/2019: Chest CT: Bibasilar consolidated opacity. There is small bilateral effusions. CT abdomen and pelvis: Free air from suspected colonic diverticulum. Free air extended into the left inguinal hernia. Moderate free fluid. No abscess is seen. Multiple gallstones with moderately distended gallbladder, stone of 2 to 3 mm in the common bile duct. ASSESSMENT AND PLAN: This is an 84-year-old DO NOT RESUSCITATE, DO NOT INTUBATE patient admitted on 12/12/2019 complaining of shortness of breath, dyspnea on exertion, chronic leg and shoulder pain with two week history of ibuprofen for pain control, found to have acute gastrointestinal (GI) bleed and underlying colonoscopy by Dr. Smalls, which showed ulcerated nonobstructive mass in the mid to transverse colon with a bleeding and oozing measured at 4 cm, diverticulosis, internal hemorrhoids and blood clots throughout the colon. Pathology showed adenocarcinoma of the right colon, status post resection by Dr. Nava on 12/16/2019 with robotic assisted transverse colon resection and right hemicolectomy and was started TPN on 12/20/2019. He developed acute kidney injury and became oliguric, currently managed by nephrology with fluid overload currently on IV Lasix drip. On 12/21/2019, the patient developed acute respiratory and metabolic acidosis, congestive heart failure (CHF) due to aortic stenosis and was intubated and currently mechanically intubated. The patient was kept on TPN and had elevated white count on 12/24/2019 without any fever, increased to 40.1. CT abdomen and pelvis showed a perforated colonic diverticulum with worsening white count at 48.3, still on broad-spectrum gram-negative coverage. The patient is at high risk for surgery remains in critical condition, managed by infectious disease, nephrology, pulmonary and general surgery. The patient's family is open to comfort measures only should the person worsens. IMPRESSION: 1. Severe sepsis with perforated colonic diverticulum in the setting of newly diagnosed colon cancer, status post hemicolectomy, presenting symptoms of gastrointestinal (GI) bleed. The patient is currently in very critical condition with a very guarded prognosis. He is at high risk for surgery. Therefore, the patient is managed conservatively with IV antibiotics and for supportive care. At this time, per infectious disease, since he has been off the bowel regimen, may check PCR for Clostridium difficile. No additional antibiotics and antifungals have been added overnight. Infectious disease specialist, Dr. Cameron, is helping with management. 2. For the perforated diverticulum per general surgeon, Dr. Shawn Nava, the patient is very high risk for surgery and therefore is managed conservatively. Family is aware of the guarded prognosis and critical condition and is open to comfort measures only. 3. Recurrent mucous plugging with respiratory failure with history of acute respiratory and metabolic acidosis. Metabolic acidosis and respiratory acidosis have resolved on ventilator and with diuresis on Lasix drip. The patient is managed by mid teacher, Dr. Hodgson. He has had multiple episodes of mucous plugging with bloody tracheal secretions. Chest CT yesterday showed very small bilateral effusions. The patient appears to be responding to Lasix drip and he remains with mild increase in bibasilar consolidation prior to 12/20/2019, study. 4. Acute gastrointestinal (GI) bleed secondary to blood loss from colon cancer. The patient had received 3 units of red blood cell (RBC) transfusion. Hemoglobin and hematocrit are being monitored. Currently has no overt gastrointestinal (GI) bleed at this time; on Protonix 40 mg IV twice a day. 5. New diagnosis of adenocarcinoma of the colon, status post right hemicolectomy. Incision site in the midabdomen appears clean without any drainage. The patient's surgical drain site also appeared clean. Postop management per Dr. Nava. Bowel regimen has been discontinued due to elevated white count concerns for Clostridium difficile. 6. Acute oliguric renal failure secondary to sepsis from perforated colonic diverticulum, managed by nephrology. Despite Lasix drip he remains in positive balanced, diuresed 405 mL yesterday, 125 since midnight. He remains with very guarded prognosis. He currently has no metabolic acidosis or hyperkalemia. Will defer to nephrology. 7. Abnormal cardiac markers with elevated troponin, most likely secondary to renal failure. Total CK/MB fraction and relative index appear to be normal. 8. Severe aortic stenosis. The patient is very high risk for surgical intervention for the perforated colonic diverticulum; therefore, he is being managed conservatively. Due to severe hypotension, the patient's metoprolol has been discontinued. 9. Hypotension secondary to sepsis from perforated diverticulum. Metoprolol has been discontinued. 10. Diabetes, currently on TPN sliding scale every 6 hours. 11. Obesity. Body mass index (BMI) of 33.3, complicating care. 12. Code status: DO NOT RESUSCITATE, DO NOT INTUBATE. DISPOSITION: The patient is clinically worsening. Remains oliguric. Mechanically ventilated. Remains septic. The patient's family is open to comfort measures only. MTDD
[2019-12-25] MEDS: PANTOPRAZOLE 40MG VIAL (C9113 PER 1) IV SCH (10:22)
[2019-12-25] MEDS: CHLORHEXIDINE GLUCONATE 0.12 % 15ML UDC (PERIDEX ORAL RINSE) MT SCH (10:22)
--- NOTE | 2019-12-25 11:27 | IPNPDOC ---
Date Seen The patient was seen on 12/25/19. Progress Note Per and daughter's requests, "We don't want him to suffer. It's inevitable. 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 -transfer to [facility]. VS, I&O, 24H, Fishbone Vital Signs/I&O Vital Signs Date Time Temp Pulse Resp B/P (MAP) Pulse Ox O2 Delivery O2 Flow Rate FiO2 12/25/19 08:00 18 93 35 12/25/19 08:00 Ventilator 12/25/19 06:00 69 82/50 (61) 12/25/19 04:00 97.7 12/21/19 16:21 15.0 I&O- Last 24 Hours up to 6 AM 12/25/19 06:00 Intake Total 2582.6 ml Output Total 390 ml Balance 2192.6 ml Laboratory Data 24H LABS Laboratory Tests 2 12/24/19 13:35: Magnesium Level 2.0, Total Creatine Kinase 65, Creatine Kinase MB < 1.0, Creatine Kinase MB Relative Index 1.54, Troponin I 0.18H 12/24/19 17:39: Bedside Glucose (Misc Panel) 283H 12/25/19 00:32: Bedside Glucose (Misc Panel) 267H 12/25/19 05:27: Blood Gas Bicarbonate Standard 23.5, Arterial Blood pH 7.356, Arterial Blood Partial Pressure CO2 44.8, Arterial Blood Partial Pressure O2 72.8L, Arterial Blood Total CO2 25.9, Arterial Blood HCO3 24.5, Arterial Blood Base Excess -1.1, Arterial Blood Oxygen Saturation 93.8L 12/25/19 05:31: Immature Granulocyte % (Auto) , Neutrophils (%) (Auto) , Nucleated Red Blood Cells % (auto) 1.6H, Neutrophils 52, Band Neutrophils 5, Lymphocytes (Manual) 18, Monocytes (Manual) 7H, Eosinophils (Manual) 3, Metamyelocytes 5H, Myelocytes 4H, Atypical Lymphocytes 6H, Polychromasia 1+, Anisocytosis 1+, Smudge Cells 4+, Platelet Estimate DECREASED, Immature Platelet Fraction 7.8, Anion Gap 7L, Glomerular Filtration Rate 12.8L, Calcium Level 7.9L 12/25/19 06:00: Bedside Glucose (Misc Panel) 277H CBC/BMP Laboratory Tests 12/24/19 13:35 12/25/19 05:31 Microbiology Microbiology 12/24/19 Blood Culture - Preliminary, Resulted No growth after 24 hours . All specim... 12/24/19 Blood Culture - Preliminary, Resulted No growth after 24 hours . All specim... 12/21/19 Gram Stain - Final, Complete 12/21/19 Sputum Culture - Final, Complete SABRINA LEWIS MD Dec 25, 2019 11:26
[2019-12-25] MEDS ORDERED: ONDANSETRON 4MG/2ML VIAL IV PRN (11:30)
[2019-12-25] MEDS ORDERED: ATROPINE SULFATE 1% OP SOLN 2 ML BTL SL PRN (11:30)
[2019-12-25] MEDS ORDERED: MORPHINE SULF IN 0.9% NACL 100 MG in IV 1 EA IV SCH ×2 (11:30)
[2019-12-25] MEDS ORDERED: LORazepam 2 MG/ML VIAL IV PRN (11:30)
[2019-12-25] MEDS ORDERED: SCOPOLAMINE 1MG TRANSDERMAL PATCH TOP PRN (11:30)
[2019-12-25] MEDS ORDERED: LORazepam 2 MG/ML VIAL IV STA (13:50)
[2019-12-25] MEDS ORDERED: MORPHINE 10 MG/ML 1ML VIAL (J2270) IV ONE (14:00)
--- NOTE | 2019-12-25 14:50 | IPN ---
DATE OF VISIT: 12/25/2019 Mr. Enrique was seen this morning on his bedside in intensive care unit. He remains on the ventilator and sedated. Nursing staff tells me that the patient's family has declined any further surgical intervention even though he is felt to have a perforated viscus with free intraperitoneal air. His urine output is minimal despite low-dose Lasix drip. His blood pressure has been marginal. He is currently not on any pressors and remains on total parenteral nutrition (TPN). On physical exam, temperature 97.7 degrees Fahrenheit, heart rate 70 per minute and respiratory rate 18 per minute. Blood pressure 111/52 mmHg and oxygen saturation 94%. Endotracheal and orogastric tubes are in place. Head is atraumatic. Neck supple and jugular venous distention (JVD) not abnormally elevated. Heart sounds are regular. Lungs have good bilateral air entry. Abdomen is soft and bowel sounds are hypoactive but present. Extremities have no cyanosis or clubbing. Neurologically, he remains poorly responsive due to sedation. Today's labs show WBC count 48.3, hemoglobin 8.9 and hematocrit 26.9. Platelets 93,000. Sodium 139, potassium 4.2, chloride 103, CO2 29, BUN 67 and creatinine 4.67. Calcium 7.9 and glucose 292. PROBLEMS: 1. Oliguric acute renal failure related to sepsis. Patient has most likely perforated viscus and not doing very well. I am not optimistic about recovery of kidney function unless his sepsis and source of his sepsis is corrected. At this point, we will try our efforts to keep him nonoliguric with IV Lasix drip. We are increasing his Lasix drip rate to 10 mg/h. He does not have any significant metabolic acidosis or hyperkalemia and there is no emergent need for dialysis. I am not sure if his family would even consider dialysis as they have declined any surgical intervention for a perforated viscus and are considering about making him comfort measures only. 2. Respiratory failure. Patient remains on the ventilator. His volume status is still reasonable and respiratory failure is most likely related to his lung disease and intra-abdominal infection. I do not feel that urgent dialysis is indicated because of his respiratory insufficiency.
--- NOTE | 2019-12-26 21:40 | CR ---
DATE OF CONSULTATION: 12/24/2019 INFECTIOUS DISEASE CONSULTATION This consultation was done on 12/24/2019, 5:00 p.m. Asked to consult by Dr. Julian for evaluation of severe leukocytosis with a white count of 40,000. HISTORY OF PRESENT ILLNESS: Mr. Antonio is an 84-year-old gentleman who was admitted to the hospital for severe anemia on 12/12/2019 under the hospitalist service with worsening shortness of breath and dyspnea. The patient was found to have severe anemia and colon cancer. He had a right hemicolectomy done on 12/16/[address] Nava with assistance of Dr. Zavala. The patient this was on broad-spectrum antibiotics with IV Zosyn started on 12/17/2019. He postoperatively deteriorated. The first week after surgery, the patient's white count remained between 7 and 10. On 12/24/2019, his white count was noted to be 40,000. He had a followup CT, which showed free air in the left colon, suspected perforation of colonic diverticulum with free air extending into the left inguinal area with mild free fluid in the upper abdomen. No abscess was noted. There is concern of intussusception of the rectosigmoid colon and multiple gallstones. The patient was intubated when I saw him, he was sedated with propofol, he was on pressors. His past medical history is significant for aortic stenosis, diabetes, hypertension, hyperlipidemia, chronic kidney disease, the patient went into acute kidney failure, BPH, diabetic neuropathy, squamous cell carcinoma of the face, iron deficiency anemia from recent diagnosis of colon cancer, bladder tumor. ALLERGIES: No known drug allergies. MEDICATIONS: - Zosyn 3.375 grams IV every 6 hours - chlorhexidine twice a day - propofol sedation - midazolam 2 mg IV every 15 minutes as needed - Murphy one tablet every 12 hours as needed - furosemide 250 mg IV every 24 hours - meropenem was started on 12/20/2019 1 gram IV every 8 hours after Zosyn was discontinued. - Fentanyl for sedation. LABORATORY DATA: White count 40.1, hemoglobin 9, hematocrit 27.1, platelets 106, 55% neutrophils, 5% bands, 19% lymphocytes, 6% metamyelocytes, 9% myelocytes. Sodium 141, potassium 3.9, chloride 105, bicarbonate 29, BUN 58, creatinine 4.33, glucose 287, calcium 7.8, phosphorus 2.5, magnesium 1.9, albumin 1.9. 12/24/2019: Two sets of blood cultures were ordered, are pending. Sputum culture on 12/21/2019 was negative. COVID PCR was negative. CT abdomen and pelvis shows a new perforation with free air and rectosigmoid intussusception. On physical exam, he is a sedated elderly gentleman, intubated, in no acute distress. Temperature is 97.9, pulse 77, respiratory rate 16, blood pressure 105/59, oxygen saturation (O2 sat) 97% on a ventilator with an FiO2 of 35%. Heart: Normal, S1, S2 with a systolic ejection murmur 2/6 at the left upper sternal border. Lungs: Clear anteriorly. No wheezes, rales or rhonchi. Abdomen: Soft, nontender. There is a healed skin incision from hemicolectomy without any evidence of infection. No purulence. Bowel sounds are diminished. Extremities: Without any cyanosis or clubbing. Trace edema. There is mild erythema of his forearm. Neurologic: He is sedated and does not open his eyes. IMPRESSION: Sepsis, status post bowel perforation with a white count of 40,000. The patient is not a surgical candidate for repeat surgery. He has nguyễn stools. He is on appropriate antibiotics with IV meropenem. If diarrhea worsens or he has foul-smelling stools, he may be also at risk of having Clostridium (C) difficile and may consider to send the stool for C diff testing. The patient developed acute renal failure superimposed on chronic kidney disease. His urine output has dropped. He is on total parenteral nutrition (TPN). The patient as he is on Lasix. PLAN: Continue with IV meropenem 1 gram currently at every 8 hours, but his dose needs to be decreased to renal dosing at every 24 hours. Agree with adding fluconazole for bowel perforation. Prognosis is very poor.
--- NOTE | 2019-12-28 23:40 | DSES ---
DATE OF ADMISSION: 12/12/2019 DATE OF : 12/25/2019 The patient at 3:06 p.m. as comfort measures only, DO NOT INTUBATE, DO NOT RESUSCITATE and was extubated per family request. DISCHARGE DIAGNOSES: 1. Acute lower gastrointestinal (GI) bleed requiring two units of red blood cell (RBC) transfusion. 2. Acute blood loss anemia. 3. Symptomatic anemia. 4. Adenocarcinoma of the colon. 5. Sepsis secondary to perforated diverticulum. 6. Severe aortic stenosis. 7. Congestive heart failure, acute diastolic exacerbation. 8. Chronic right bundle branch block. 9. Left ventricular hypertrophy. 10. Acute kidney injury and chronic kidney disease, stage III. 11. Acute metabolic acidosis. 12. Acute respiratory acidosis. 13. Acute metabolic encephalopathy. 14. Obstructive sleep apnea. 15. Right lower lobe pneumonia. 16. Acute hypoxic respiratory and metabolic acidosis. 17. Acute respiratory failure requiring mechanical ventilation. 18. Obesity, body mass index (BMI) of 33.4. 19. Perforated diverticulum. New diagnosis of adenocarcinoma of the colon, acute oliguric renal failure, severe aortic stenosis with aortic valve diameter of 0.93 cm squared, AV gradient of 25 mmHg. DISCHARGE INSTRUCTIONS: Per family request, the patient was removed from life support and was extubated on 12/25/2019 at 12 o'clock. He at 3:06 p.m. with the family at the bedside. Body was subsequently released to the [facility] [place]. HOSPITAL COURSE: This is an 84-year-old male admitted on 12/12/2019 with complaint of shortness of breath and dyspnea on exertion with chronic leg and shoulder pain. He had taken two weeks of ibuprofen for pain control and was found to have acute lower gastrointestinal (GI) bleed, but was hemodynamically stable with presenting blood pressure of 114 to 143 systolic, saturating 88% on room air. Hemoglobin was 7.8 with heme positive stool. The patient was typed and crossed and was transfused 3 units of red blood cells (RBCs). [employer], Dr. Smalls was consulted and the patient underwent a colonoscopy after bowel prep, was found to have oozing, bleeding 4 cm tumor in the mid transverse colon with blood and clots. Sigmoid diverticulosis and internal hemorrhoids. Pathology confirmed on December 15. Invasive adenocarcinoma mild to moderately differentiated. General surgery was subsequently consulted, Dr. Shawn Nava, for robotic assisted hemicolectomy. The patient underwent a robotic assisted extended right hemicolectomy for transverse colon on 12/16/2019 and was found on biopsy to have mucinous adenocarcinoma of the transverse colon focally extending into the pericolonic fat. Terminal ileum appendix were unremarkable. Two lymph nodes had no pathologic changes. The carcinoma was invading the muscularis propria and focally invading the pericolonic fat. No lymph or vascular invasion was noted. There were two small benign lymph nodes measuring 0.2 to 0.4 cm and the omentum was free of carcinoma. All resection margins appeared free. Status post hemicolectomy, the patient was placed on intravenous Zosyn on 12/16/2019. Creatinine on admission was 3.49. With IV fluid hydration, the patient improved on 12/17/2019 to 2.72. Urine output was only 525 on 12/18/2019 with worsening creatinine. Therefore machine fixer, Dr. Chrissie Wolf was consulted for help in management. The patient remained oliguric and did not make much urine over the past 24 hours. There was still no emergent need for dialysis. He had severe metabolic acidosis and combined respiratory acidosis with CO2 of 66 and pH of 7.11. He was placed on BiPAP therapy on 12/20/2019 with no significant improvement and remained with severe respiratory and metabolic acidosis. Dr. Hodgson was then consulted, enterprise application administrator, who intubated the patient and managed the mechanical ventilation. The respiratory insufficiency and acute respiratory acidosis was thought to be secondary to untreated sleep apnea and chronic obstructive pulmonary disease (COPD) with CO2 retention, but did not respond to bilateral positive airway pressure and was subsequently intubated due to increase in volume post surgery and IV fluid given due to nothing by mouth status for colonoscopy. He remained in positive balance and went into decompensated congestive heart failure, diastolic dysfunction. Echocardiogram read by Dr. Waldemar Mai showed ejection fraction of 75%, but with severe calcific aortic stenosis with KARISHMA of 0.93 cm square and AV gradient of 25 mmHg. The patient continued to have difficulty diuresing and was placed intravenous Lasix drip after IV fluids were discontinued, which was managed by nephrology. If there was no success, then most likely dialysis was going to b the next step. At that point, the patient was started on total parenteral nutrition, managed by general surgery. He remained intubated and mechanically ventilated over the next few days. He had been on intravenous Zosyn from 12/15; and on 12/19 due to respiratory failure and mechanical intubation, the patient was changed to intravenous meropenem. On 12/20 when the patient's white count increased to 10.2 from normal. On 12/24/2019, the patient subsequently had severe leukocytosis with white count of 40,000. He had a temperature of 100.8 on 12/18/2019 post surgery for which he was given intravenous Zosyn up to 12/20. From 12/20 to 12/22, he remained afebrile, but developed severe leukocytosis with white count of 40,000 on 12/23/2019. He was on a bowel regimen with 5 bowel movements noted on 12/21 at which point his bowel regimen was discontinued. Later on, on 12/23, the patient's white count continued to increase to 42,000; at which point, infectious disease specialist, Dr. Mikki Cameron, was consulted, who agreed with continuing the meropenem and added Diflucan. Due to worsening white count on 12/25/2019 of 48.3, CT abdomen and pelvis and CT chest were performed to look for any loculated abscess or effusion. The patient was found to have free air, thought to be secondary to a perforated diverticulum on the left colon. The free air surrounding the left colon was suspected to represent perforation of a colonic diverticulum with free air extending into the left inguinal hernia and mild free fluid is seen in the upper abdomen. No abscess was seen. There is an interception of the intussusception of the rectosigmoid colon, which could be a transient finding, but no proximal bowel dilatation. Multiple gallstones were seen in a moderately distended gallbladder and a possible 2 to 3 mm stone in the common bile duct. This was discussed with general surgery, who felt that the patient was very high risk in light of this aortic stenosis and multiorgan failure with oliguric renal failure, likely to have hemodialysis, respiratory failure on mechanical ventilation, severe aortic insufficiency with congestive heart failure, diastolic dysfunction and sepsis secondary to perforated ulcer. Microbiology was negative for blood cultures on 12/24/2019. Sputum culture on 12/20 was normal leena and COVID-19 was negative. After repeated discussions regarding prognosis and overall guarded prognosis, the patient's family decided to not proceed with surgery; and since the patient had worsening white count and nearing dialysis, they had decided that the patient would not want to continue as is due to the multiorgan failure and very little chance of recovery. The patient's and daughter decided DO NOT RESUSCITATE, DO NOT INTUBATE and comfort measures only. They had then decided to come into the hospital for extubation and stayed with him after extubation when he finally at 3:06 p.m. PHYSICAL EXAMINATION: Declaration of . Vital Signs: No temperature, no pulse, no respiratory rate, no blood pressure. Lungs: No spontaneous breathing. Heart: No heart sounds. Abdomen: No bowel sounds. Neurologically, the patient has no reflexes. The patient was declared at 3:06 p.m. on 12/25/2019 with the family at the bedside. CAUSE OF : Sepsis secondary to perforated left colonic diverticulum, new diagnosis of adenocarcinoma of the colon causing acute symptomatic lower gastrointestinal (GI) bleed, requiring 3 units red blood cell (RBC) transfusion, oliguric renal failure, most likely was going to require hemodialysis, acute on chronic hypercapnic and respiratory failure, acute respiratory and metabolic acidosis, severe aortic stenosis, chronic diastolic congestive heart failure with acute exacerbation with preserved ejection fraction. Time spent on discharge: 30 minutes. MTDD
== END 2019-12-25 16:50 | disposition expired | DRG 329 ==
LOC: M ED 14:57 → M ED INP 17:52 → ENRESERV 19:55 → M PCU 20:40 → M ICU 12-21 11:35
PROVIDERS: ADMIT Internal Medicine; ATTEND Internal Medicine
PROC: 30233N1 Transfusion of Nonautologous Red Blood Cells into Peripheral Vein, Percutaneous Approach (ICD-10-PCS; 2019-12-12)
PROC: 0DTL4ZZ Resection of Transverse Colon, Percutaneous Endoscopic Approach (ICD-10-PCS; 2019-12-16)
PROC: 02HV33Z Insertion of Infusion Device into Superior Vena Cava, Percutaneous Approach (ICD-10-PCS; principal; 2019-12-21)
PROC: 5A1945Z Respiratory Ventilation, 24-96 Consecutive Hours (ICD-10-PCS; 2019-12-22)
PROC: 0DJ08ZZ Inspection of Upper Intestinal Tract, Via Natural or Artificial Opening Endoscopic (ICD-10-PCS; 2019-12-25)
DX: C18.4 Malignant neoplasm of transverse colon (principal); J18.9 Pneumonia, unspecified organism; A41.9 Sepsis, unspecified organism; I50.31 Acute diastolic (congestive) heart failure; G93.41 Metabolic encephalopathy; J96.01 Acute respiratory failure with hypoxia; K92.2 Gastrointestinal hemorrhage, unspecified; D62 Acute posthemorrhagic anemia; N17.9 Acute kidney failure, unspecified; I13.0 Hypertensive heart and chronic kidney disease with heart failure and stage 1 through stage 4 chronic kidney disease, or unspecified chronic kidney disease; K57.80 Diverticulitis of intestine, part unspecified, with perforation and abscess without bleeding; E87.2 Acidosis; N18.3 Chronic kidney disease, stage 3 (moderate); D69.6 Thrombocytopenia, unspecified; E87.5 Hyperkalemia; I35.0 Nonrheumatic aortic (valve) stenosis; R06.89 Other abnormalities of breathing; G47.33 Obstructive sleep apnea (adult) (pediatric); E66.9 Obesity, unspecified; Z68.33 Body mass index [BMI] 33.0-33.9, adult; K64.8 Other hemorrhoids; Z66 Do not resuscitate; E11.40 Type 2 diabetes mellitus with diabetic neuropathy, unspecified